=== PATIENT | female | born 1965 | race Caucasian/White ===

== ENCOUNTER 2022-03-12 02:51 | Emergency (ER) | payer OTHER, SELFPAY ==
[2022-03-12] VITALS (42 sets, daily range): BP systolic 121–154; BP diastolic 64–95; PULSE 78–97; RESP 16; TEMP 36.6; O2SAT 91–98; BMI 30.7
[2022-03-12] MEDS: GI COCKTAIL (VISC LIDO/ANTACID) 30 ML PO (03:15)
--- NOTE | 2022-03-12 03:16 | ED.GENADULT ---
HPI - General Adult General Date Seen: 03/12/22 Chief complaint: Abdominal Pain Stated complaint: Abdominal Pain Time Seen by Provider: 03/12/22 03:03 Source: patient and family Mode of arrival: ambulatory Limitations: no limitations History of Present Illness HPI narrative: 56-year-old female brought in by her at 3:00 a.m. with epigastric pain that began around 10:00 p.m.. Some nausea but no vomiting. She has had a normal bowel movement. Nothing black or bloody. She took some Rolaids without much relief. She has a history of pancreatitis, likely related to gallstones. She is not a drinker. Her gallbladder has been removed. She ate cabbage and a sandwich for supper. No fevers or chills. Related Data Home Medications Medication Instructions Recorded Confirmed levothyroxine 112 mcg tablet mcg 03/12/22 Allergies Allergy/AdvReac Type Severity Reaction Status Date / Time levofloxacin [From Levaquin] AdvReac Verified 03/12/22 03:01 Review of Systems Narrative: Review of systems is as outlined above otherwise noted to be negative. [facility] Medical History (Updated 03/12/22 @ 03:19 by Boy Castillo MD) History of pancreatitis Hypothyroid Lymphoma Surgical History (Updated 03/12/22 @ 03:02 by Rand Saavedra RN) History of cholecystectomy Social History Smoking Status: Never smoker Do you use any of these nicotine containing products: None How often do you have a drink containing alcohol: never AUDIT-C Alcohol total score: 0 Non-prescribed substance use: denies use Exam Narrative: Exam Narrative: Vitals noted. HEENT: Conjunctiva clear. Neck is supple without adenopathy, thyromegaly, carotid bruit. Lungs: Clear to auscultation in all muir. No wheezes, rales, rhonchi. Heart: Regular rate and rhythm without murmur. Abdomen: Soft with mild epigastric pain. No guarding, rigidity, rebound. Bowel sounds are normal. No palpable masses. Extremities: No cyanosis or edema. Good distal pulses. Skin: No abnormalities noted of the exposed skin. Neurologic: Awake, alert, fully oriented. Neurologic exam is nonfocal. Const: Vital Signs, click to edit/add: Vital Signs - 24 hr 03/12/22 02:58 03/12/22 03:07 03/12/22 03:30 Temperature 97.8 F Pulse Rate 96 86 Pulse Rate [Left P ulse Oximeter] 91 Respiratory Rate 16 Blood Pressure Blood Pressure [Ri ght Upper Arm] 136/95 H Pulse Oximetry 98 98 96 Oxygen Delivery Me thod Room Air 03/12/22 03:32 03/12/22 04:00 03/12/22 04:02 Temperature Pulse Rate 86 88 86 Pulse Rate [Left P ulse Oximeter] Respiratory Rate Blood Pressure 145/82 H 154/87 H Blood Pressure [Ri ght Upper Arm] Pulse Oximetry 96 96 95 Oxygen Delivery Me thod 03/12/22 04:03 03/12/22 04:22 03/12/22 04:30 Temperature Pulse Rate 90 89 84 Pulse Rate [Left P ulse Oximeter] Respiratory Rate Blood Pressure Blood Pressure [Ri ght Upper Arm] Pulse Oximetry 96 92 94 Oxygen Delivery Me thod 03/12/22 04:32 03/12/22 04:45 03/12/22 05:00 Temperature Pulse Rate 84 89 90 Pulse Rate [Left P ulse Oximeter] Respiratory Rate Blood Pressure 148/79 H Blood Pressure [Ri ght Upper Arm] Pulse Oximetry 94 94 94 Oxygen Delivery Me thod 03/12/22 05:02 03/12/22 05:15 03/12/22 05:30 Temperature Pulse Rate 86 88 88 Pulse Rate [Left P ulse Oximeter] Respiratory Rate Blood Pressure 150/75 H Blood Pressure [Ri ght Upper Arm] Pulse Oximetry 94 94 94 Oxygen Delivery Me thod 03/12/22 05:32 03/12/22 05:45 03/12/22 06:00 Temperature Pulse Rate 90 89 86 Pulse Rate [Left P ulse Oximeter] Respiratory Rate Blood Pressure 126/64 Blood Pressure [Ri ght Upper Arm] Pulse Oximetry 96 94 97 Oxygen Delivery Me thod 03/12/22 06:02 03/12/22 06:15 03/12/22 06:30 Temperature Pulse Rate 85 85 87 Pulse Rate [Left P ulse Oximeter] Respiratory Rate Blood Pressure 133/82 Blood Pressure [Ri ght Upper Arm] Pulse Oximetry 95 96 95 Oxygen Delivery Me thod 03/12/22 06:32 03/12/22 06:37 03/12/22 06:45 Temperature Pulse Rate 88 97 84 Pulse Rate [Left P ulse Oximeter] Respiratory Rate Blood Pressure 132/71 Blood Pressure [Ri ght Upper Arm] Pulse Oximetry 96 95 97 Oxygen Delivery Me thod 03/12/22 07:00 03/12/22 07:15 Temperature Pulse Rate 84 84 Pulse Rate [Left P ulse Oximeter] Respiratory Rate Blood Pressure Blood Pressure [Ri ght Upper Arm] Pulse Oximetry 96 96 Oxygen Delivery Me thod Course Course Hospital Course: Patient was seen and examined. Labs are ordered. GI cocktail is also ordered. Reevaluation(s) Reevaluation #1: The GI cocktail was ineffective. The patient's labs are all normal other than a lipase of 5249. She confirms that she does not drink alcohol, has never had an elevated triglyceride count, and takes no medications other than Synthroid. CT of the abdomen and pelvis with IV contrast is ordered. Patient is given fentanyl 50 mcg and Zofran 4 mg IV. Reevaluation #2: Patient feels considerably better after the fentanyl. I explained her CT results. It showed pancreatitis of the 2nd and 3rd portion of the pancreas possibly related to duodenal inflammation. She denies history of significant acid reflux or history of peptic ulcer disease. I discussed that we should plan to keep her in the hospital on IV fluids and pain meds and keep her NPO and observe. She is willing. They are currently no beds available at this facility or any other facility in the [facility]. The patient should probably have an EGD done either during this admission or as an outpatient to make sure there is no evidence of peptic ulcer disease that is triggering the pancreatitis. I will start her on a PPI today. Vital Signs Vital signs: Initial Vital Signs Temperature 97.8 F 03/12/22 02:58 Temperature Source Temporal Artery Scan 03/12/22 02:58 Pulse Rate 91 03/12/22 02:58 Respiratory Rate 16 03/12/22 02:58 Blood Pressure 136/95 H 03/12/22 02:58 Blood Pressure Mean 108 03/12/22 02:58 Blood Pressure Position Sitting 03/12/22 02:58 Pulse Oximetry 98 03/12/22 02:58 Oxygen Delivery Method 03/12/22 02:58 Vital Signs Temperature 97.8 F 03/12/22 02:58 Pulse Rate 91 03/12/22 02:58 Respiratory Rate 16 03/12/22 02:58 Blood Pressure 136/95 H 03/12/22 02:58 Pulse Oximetry 98 03/12/22 02:58 Oxygen Delivery Method 03/12/22 02:58 Temperature 97.8 F 03/12/22 02:58 Pulse Rate 84 03/12/22 07:15 Respiratory Rate 16 03/12/22 02:58 Blood Pressure 132/71 03/12/22 06:32 Pulse Oximetry 96 03/12/22 07:15 Oxygen Delivery Method 03/12/22 02:58 Medical Decision Making Lab Data Labs: Lab Results 03/12/22 03/12/22 Range/Units 03:05 03:05 WBC 7.59 (4.50-11.00) K/uL RBC 4.72 (4.00-5.20) m/uL Hgb 14.3 (12.0-16.0) gm/dL Hct 41.8 (33.0-51.0) % MCV 89 (80-100) fL MCH 30 (26-34) pg MCHC 34 (32-36) gm/dL RDW Coeff of Charla 12.2 (11.5-15.5) % Plt Count 229 (140-440) K/uL Neut % (Auto) 76.2 H (42.0-72.0) % Lymph % (Auto) 16.1 L (20-44) % [place] % (Auto) 5.4 (0.0-11.0) % Eos % (Auto) 1.1 (0.0-7.0) % Baso % (Auto) 0.3 (0.0-3.0) % Neut # (Auto) 5.80 (1.7-7.0) K/uL Lymph # (Auto) 1.20 (0.90-2.90) K/uL [place] # (Auto) 0.40 (0.00-0.90) K/UL Eos # (Auto) 0.08 (0.00-0.50) K/uL Baso # (Auto) 0.02 (0.00-0.30) K/uL Abs Immat Gran (auto) 0.07 (0.00-0.30) K/uL Imm/Tot Granulo (auto) 0.9 % Sodium 140 (135-149) mmol/L Potassium 3.9 (3.6-5.1) mmol/L Chloride 105 (96-114) mmol/L Carbon Dioxide 26 (20-32) mmol/L BUN 15 (7-30) mg/dL Creatinine 0.7 (0.5-1.5) mg/dL Estimated Creat Clear 99.11 Estimated GFR 101 ml/min Glucose 142 H (60-115) mg/dL Calcium 9.7 (8.4-10.6) mg/dL Total Bilirubin 0.4 (0.1-1.5) mg/dL Direct Bilirubin 0.1 (0.0-0.5) mg/dL AST 28 (12-35) U/L ALT 26 (4-35) U/L Alkaline Phosphatase 146 (40-150) U/L Total Protein 7.4 (6.0-8.3) g/dL Albumin 4.7 (3.3-5.0) g/dL Lipase 5249 H (23-300) U/L Discharge Plan Discharge Prescriptions: No Action levothyroxine 112 mcg tablet Label Comments: TAKE ONE TABLET BY MOUTH ONE TIME DAILY BEFORE BREAKFAST Follow Up/Referrals: Lefty Gomez MD [Primary Care Provider] -
[2022-03-12 03:18] LABS: Basophils Absolute Auto 0.02 K/uL (0.00-0.30); Basophils Percent Auto 0.3 % (0.0-3.0); Eosinophils Absolute Auto 0.08 K/uL (0.00-0.50); Eosinophils Percent Auto 1.1 % (0.0-7.0); Hematocrit 41.8 % (33.0-51.0); Hemoglobin* 14.3 gm/dL (12.0-16.0); Immature Granulocytes Abs Auto 0.07 K/uL (0.00-0.30); Immature Granulocytes Pct Auto 0.9 %; Lymphocytes Percent Auto 16.1 % (20-44); Mean Corpuscular HGB Conc 34 gm/dL (32-36); Mean Corpuscular Hemoglobin 30 pg (26-34); Mean Corpuscular Volume 89 fL (80-100); Monocytes Percent Auto 5.4 % (0.0-11.0); Neutrophils Percent Auto 76.2 % (42.0-72.0); Platelet Count* 229 K/uL (140-440); RDW Coefficient of Variation % 12.2 % (11.5-15.5); Red Blood Count 4.72 m/uL (4.00-5.20); White Blood Count* 7.59 K/uL (4.50-11.00)
[2022-03-12 03:20] LABS: Slide Review Reflex No
--- OUTSIDE RECORDS SUMMARY | 2022-03-12 03:26 | XMS_ITS | Clinical Summary ---
:1965 Author Organization [employer] [facility] [employer] [facility] [place] [address] Care Team Providers Name Role Phone Lefty Gomez MD Primary Care Provider [phone] Allergies Active Allergy Reactions Severity Noted Date Comments Levofloxacin Rash 12/20/2007 Medications Medication Sig Dispensed Refills Start Date End Date Status Sfljw-8-ZEA-EPA-Fish Take 1 Tab by 0 05/21/2009 Active Oil (EPA-DHA 720) mouth once daily. 290-430-1.4 mg-mg-gram Cap cholecalciferol Take 1 capsule by 0 07/13/2011 Active (VITAMIN D-3) 2,000 mouth 2 times unit capsule daily. multivitamin (MVI) Take 1 tablet by 0 02/07/2020 Active tablet mouth once daily. levalbuterol (XOPENEX Inhale 1-2 Puffs 15 g 1 01/16/2021 Active HFA) 45 mcg/actuation by mouth every 4 inhalerIndications: hours if needed. Wheeze alendronate (Fosamax) Take 1 Tablet (70 12 Tablet 3 01/27/2022 Active 70 mg mg) by mouth once tabletIndications: a week in the Osteoporosis with morning. Take on current pathological empty stomach fracture, unspecified with full glass osteoporosis type, of water. Do not initial encounter lie down for 1 hr. levothyroxine Take 1 Tablet 90 Tablet 3 01/27/2022 A ctive (SYNTHROID) 112 mcg (112 mcg) by tabletIndications: mouth before Acquired hypothyroidism breakfast. tacrolimus 0.03% Apply topically 30 g 1 01/27/2022 Active (PROTOPIC) 0.03 % to affected ointmentIndications: area(s) two times Chronic eczema daily. Active Problems Problem Noted Date Osteoporosis 01/10/2020 Overview: Endo consult 01/2020-> Tymlos x 2 yrs, t hen Bisphos. Acquired hypothyroidism 09/30/2015 Adenomatous colon polyp 11/13/2014 Overview: Colonoscopy 11/2014 multiple polyps repea t in 2 months at the hospital Colonoscopy 11/2014 no recurrent polyps r epeat in 3 years Colonoscopy 02/2018 2 polyps, repeat in 5 years Migraine, unspecified, without mention o f intractable migraine without mention of status migrainosus Impaired fasting glucose Resolved Problems Problem Noted Date Resolved Date Unspecified hypothyroidism 09/30/2015 Other malignant lymphomas, unspecified site, extranodal and 01/09/2021 solid organ sites Overview: treated with radiation and chemo at age 26 Encounters Date Type Specialty Care Team Description 01/28/2022 Orders Only Lefty Gomez <No scans a ttached> MD [facility] 01/27/2022 Office Visit Lefty Gomez Medication Management; MD [facility] Derm Problem (R edness around eyes and mouth, started a coupl e months); Immunization/In jection 01/27/2022 Phone Office Visit Cruz Hamilton MD 01/27/2022 Travel 01/24/2022 Travel 01/20/2022 Ancillary Procedure 01/20/2022 Orders Only Lab, [facility] 01/20/2022 Travel 01/15/2022 Ancillary Procedure 01/15/2022 Travel 01/06/2022 Telephone Cruz Hamilton, Lab (Ok to perform labs MD due 02/02 early on 01/20/2022?) 12/30/2021 Telephone Lefty Gomez Lab (needs lab orders MD Marleni in) 12/18/2021 Refill Cruz Hamilton, Refill Request (Joana NEGRETE from Last 3 Months Immunizations Name Administration Dates Next Due AMB Influenza, IIV4 PF (=>6 mos 01/25/2018, 02/01/2017, 02/09 Flulaval,Fluzone Fluarix)(Flu Clinic Only) COVID-19 vaccine (Sc[employer]crow [employer] 08/20/2020, 07/30/2020 30mcg/0.3mL) PF, MDV Hepatitis B (Adult) 11/24/2004, 07/02/2004, 05/20/2004 Influenza, IIV3 (Age >=3 years) 02/23/2008, 03/12/2003 Influenza, IIV4 01/27/2022, 01/09/2021, 01/04/2020 Influenza, IIV4 (=>6mos) MDV 01/18/2019 Td (Age >=7 Years) 03/12/2003 Tdap 01/09/2021, 07/13/2011 Zoster (Shingrix-RZV, recombinant) 06/05/2018, 02/16/2018 Family History Medical History Relation Name Comments Asthma Brother 1 Luis Armando Buysman Diabetes Brother 1 Luis Armando Buysman Diabetes Brother 2 Spanaway Buysman Obesity Brother 2 Spanaway Buysman Cancer-prostate Father Isaías Rocha Diabetes Father Isaías Rocha Stroke Father Isaías Rocha Good Health Mother Jasmin Rocha Diabetes Paternal Grandmother Gisselle Rocha Cancer-breast No Family History Cancer-colon No Family History Cancer-ovarian No Family History Heart attack No Family History Relation Name Status Comments Brother 1 Luis Armando Buysman Brother 2 Mitchell Buysman Father Isaías Rocha Alive Mother Jasmin Rocha Alive Paternal Grandmother Gisselle Rocha Social History Tobacco Use Types Packs/Day Years Used Date Never Smoker 0 0 Smokeless Tobacco: Never Used Tobacco Cessation: Counseling Given: Yes Alcohol Use Standard Drinks/Week Comments Not Currently 0 (1 standard drink = 0.6 oz pure alcoho l) Alcohol Habits Answer Date Recorded How often do you have a drink containing alcohol? Monthly or less 11/10/2018 How many drinks containing alcohol do you have on a 1 or 2 11/10/2018 typical day when you are drinking? How often do you have six or more drinks on one Never 11/10/2018 occasion? Comment: Not asked Sex Assigned at Date Recorded Female 05/04/2021 8:26 PM [employer] Obstetrics History Last Filed Vital Signs Vital Sign Reading Time Taken Comments Blood Pressure 118/80 01/27/2022 10:01 AM CDT Pulse 105 01/27/2022 9:41 AM CDT Temperature 36.6 ??C (97.9 ??F) 07/14/2020 2:48 PM CDT Respiratory Rate 16 02/07/2020 1:07 PM CDT Oxygen Saturation 95% 01/27/2022 9:41 AM CDT Inhaled Oxygen Concentration - - Weight 99.6 kg (219 lb 9.6 oz) 01/27/2022 9:41 AM CDT Height 179.8 cm (5' 10.79) 01/27/2022 9:41 AM CDT Body Mass Index 30.81 01/27/2022 9:41 AM CDT Plan of Treatment Health Maintenance Due Date Last Done Comments HIV for age 15-65 06/21/1979 COVID-19 vaccine series (4 - 07/31/2021 06/05/2021, 021, Booster for Pfizer series) 07/30/2020 Mammogram for age 45-75 01/15/2023 01/15/2022, 11/14/2020, 11/09/2019, Additional history exists BMI (ht and wt on same day) for 01/27/2023 01/27/2022, 100 04/2020, age 18+ 01/04/2020, Additional history exists Depression screening for age 12+ 01/28/2023 01/28/2022, , 01/05/2020, Additional history exists Colonoscopy through age 75 02/13/2023 02/13/2018, 8, 02/13/2018, Additional history exists Lipids for age 45-75 12/27/2024 12/28/2019, 11/07/2018, 11/03/2017, Additional history exists Pap test for age 21-65 01/03/2025 01/04/2020, 01/04/2020, 11/05/2016, Additional history exists Tetanus booster 01/09/2031 01/09/2021, 07/13/2011, 03/12/2003 Hepatitis C screening for age Completed 11/05/2016 18-79 Zoster (shingles) series for age Completed 06/05/2018, 11/2017 50+ Tdap Completed 01/09/2021, 07/13/2011 Influenza for age 50-64 Completed 01/27/2022, 01/09/2021, 01/04/2020, Additional history exists Procedures Procedure Name Priority Date/Time Associated Diagnosis Comme nts T4,FREE Routine 01/27/2022 10:43 Acquired Results for this AM CDT hypothyroidism procedure are in the results section. TSH WITH REFLEX Routine 01/27/2022 10:43 Acquired Results for this AM CDT hypothyroidism procedure are in the results section. XR DXA BONE DENSITY Routine 01/20/2022 8:44 AM Osteoporosis wi th Results for this 2 SITES AXIAL CDT current pathological proced ure are in fracture with routine the re sults healing, unspecified section . osteoporosis type, subsequent encounter HEMOGLOBIN A1C Routine 01/20/2022 8:20 AM Impaired fasting Res ults for this SCREENING CDT glucose procedure are i n the results section. VITAMIN D 25 Routine 01/20/2022 8:20 AM Osteoporosis with Resu lts for this (DEFICIENCY) CDT current pathological procedu re are in fracture with routine the re sults healing, unspecified section . osteoporosis type, subsequent encounter PTH,INTACT Routine 01/20/2022 8:20 AM Osteoporosis with Resu lts for this CDT current pathological procedu re are in fracture with routine the re sults healing, unspecified section . osteoporosis type, subsequent encounter BASIC METABOLIC Routine 01/20/2022 8:20 AM Osteoporosis with R esults for this PANEL CDT current pathological procedu re are in fracture with routine the re sults healing, unspecified section . osteoporosis type, subsequent encounter XR MAMMO HERBERTH BILAT Routine 01/15/2022 9:49 AM Visit for gissell workman Results for this SCREEN CDT mammogram procedure are i n the results section. from Last 3 Months Results (ABNORMAL) TSH WITH REFLEX (01/27/2022 10:43 AM CDT) P athologist Signature TSH 6.92 (H) 0.35 - 4.94 01/27/2022 [facility] uIU/mL 10:31 PM CDT LABORATORY-[facility] LAB[facility] Specimen Anatomical Collection Method / Collection Time Recei milagros Time (Source) Location / Volume Laterality Blood BLOOD SPECIMEN / Venipuncture / 01/27/2022 10:43 01/27 Unknown Unknown AM CDT 10:43 AM CDT Narrative [facility] LABORATORY-[facility] - 01/27/2022 10:31 PM CDT In Adults, TSH values between 5.00 and 10.00 uIU/ml do not necessarily indicate the presence of Hyp othyroidism. Correlation with clinical findings such as presence of goiter and/or Thyroperoxidase (TPO) Antibody ma y be helpful. For more information please refer to NOR[facility]ERT 20 ; 291: [phone]. Lefty Gomez MD CHEMISTRY Performing Organization Address City/State/ZIP Code Phon e Number [employer] [address] [place] [address] LABORATORY-[facility] LABORATORY T4,FREE (01/27/2022 10:43 AM CDT) athologist Signature T4,FREE 0.91 0.70 - 1.80 01/27/2022 [facility] ng/dL 11:19 PM CDT LABORATORY[facility] LABORATORY Specimen Anatomical Collection Method / Collection Time Recei milagros Time (Source) Location / Volume Laterality Blood BLOOD SPECIMEN / Venipuncture / 01/27/2022 10:43 01/27 Unknown Unknown AM CDT 10:43 AM CDT Lefty Gomez MD CHEMISTRY Performing Organization Address City/State/ZIP Code Phon e Number [employer] [address] [place] [address] LABORATORY-[facility] LABORATORY (ABNORMAL) XR DXA BONE DENSITY 2 SITES AXIAL (01/20/2022 8:44 AM CDT) Anatomical Region Laterality Modality Spine, HIPS, HIPL, HIPR Other Specimen (Source) Anatomical Location Collection Method / Collectio n Time Received Time / Laterality Volume Impressions 01/26/2022 8:38 AM CDT Osteopenia. RECOMMENDATIONS: The National Osteoporosis Foundation rec ommends pharmacologic treatment for patients with T-scores of -2.5 or le ss, patients with prior history of fragility fractures, or patients with 10 -year probability of greater than 3% at hips or greater than 20% of suffer ing major osteoporotic fractures. Recommend continued optimization of calc ium and vitamin D intake through dietary means and/or supplementation and regular exercise. Continue current Tymlos medication treat ment. Eliane Kaiser PA-C [facility] 01/26/2022 Narrative 01/26/2022 8:38 AM CDT For Patients: Results are automatically released to your [employer]) account once available, in com pliance with federal regulations. This means that you may see your results before your provider has had a chance to review them. Please allow 2-3 business days for your provider to comment on the results. XR DXA Bone Mineral Density (BMD) EXAM LOCATION: [facility] [address] [facility] [address] PATIENT NAME: Aliyah Mcallister DATE OF : 1965 EXAM DATE: 01/20/2022 REQUESTING PROVIDER: Cruz Hamilton MD GENDER AT : female HEIGHT: 5' 11.18 (01/09/2021) WEIGHT: ??219 lb 12.8 oz (01/09/2021) MENOPAUSAL STATUS: Postmenopausal RACE/ETHNICITY: White RISK FACTORS: Family History of Osteopor osis, Family History of Hip Fracture (parental), History of Fragilit y Fracture (at a major site) and White Race CURRENT MEDICATION FOR BONE LOSS: TYMLOS 80 MCG INJECTIONS INDICATION: Screening for osteoporosis COMPARISON DATE(S): 2019 DXA scans are compared to prior studies for a patient only when the two (or more) studies were performed on the same scanner. It is not possible to compare data generated on one scanner to data from another because there are not standards in DXA equipment . This applies even if the two scanners are made by the same manufactur er. PROCEDURE: Dual-energy x-ray absorptiome try performed with routine technique. Reporting is completed in the form of a T-score. The T-score represents the standard deviation from p eak bone mass based on young healthy adult. A Z-score is used for maryann gnosis in premenopausal women, and for men under the age of 50. FINDINGS: RESULT LUMBAR SPINE L1 - L4 BMD: 0.905 g/cm2 T-Score: - 2.3 Z-Score: - 2.5 Change from prior in 2020: ??Increase 10 .2%. RESULTS FEMUR Left femoral neck BMD: 0.804 g/cm2 T-Score: - 1.7 Z-Score: - 1.3 Change from prior in 2020: ??Decrease 0. 2%. Right femoral neck BMD: 0.759 g/cm2 T-Score: - 2.0 Z-Score: - 1.6 Change from prior in 2019: ??Decrease 1. 8%. Left hip BMD: 0.808 g/cm2 T-Score: - 1.6 Z-Score: - 1.6 Change from prior in 2020: ??Increase 0. 6%. Right hip BMD: 0.787 g/cm2 T-Score: - 1.8 Z-Score: - 1.8 Change from prior in 2020: ??Increase 1. 7%. WHO criteria: Normal: T-score at or above -1 SD Osteopenia: T-score between -1.1 and -2. 4 SD Osteoporosis: T-score at or below -2.5 S D Cruz Hamilton MD DEXA HEMOGLOBIN A1C SCREENING (01/20/2022 8:20 AM CDT) athologist Signature HEMOGLOBIN A1C 6.1 <=6.4 % 01/20/2022 [employer] [facility] SCREENING 4:40 PM CDT LABORATORY-[facility] Specimen Anatomical Collection Method / Collection Time Recei milagros Time (Source) Location / Volume Laterality Blood BLOOD SPECIMEN / Venipuncture / 01/20/2022 8:20 2021 8:21 Unknown Unknown AM CDT AM CDT Narrative [facility] LABORATORY-CENTRAL LABORAT ORY - 01/20/2022 4:40 PM CDT ? (<5.7%) ?Normal ? (5.7% to 6.4%) ? Indicates pr ediabetes ? (>=6.5%) ? Confirms diabetes Falsely low levels may be seen with: Recent Transfusion, Recent Significant B lood Loss, Hemolytic Diseases, or Falsely elevated levels may be seen with : Untreated Anemias, Splenectomy Lefty Gomez MD CHEMISTRY Performing Organization Address City/State/ZIP Code Phon e Number [facility] [facility] [address] [place] [address] LABORATORY-[facility] LABORATORY VITAMIN D 25 (DEFICIENCY) (01/20/2022 8:20 AM CDT) athologist Signature VITAMIN D 44.8 30.0 - 01/20/2022 [facility] [facility] TOTAL 80.0 ng/mL 10:01 PM CDT LABORATORY-[facility] LAB[facility]ATORY Specimen Anatomical Collection Method / Collection Time Recei milagros Time (Source) Location / Volume Laterality Blood BLOOD SPECIMEN / Venipuncture / 01/20/2022 8:20 2021 8:21 Unknown Unknown AM CDT AM CDT [facility] - 01/20/2022 10:01 PM CDT Deficiency: ? <20 ng/mL Insufficiency: ?20-29 ng/mL Sufficiency: ?30-80 ng/mL Possible Toxicity: ??>80 ng/mL Based on [facility] [employer] [facility] recommend ations Cruz Hamilton MD SEND OUTS Performing Organization Address [facility]/ZIP Code Phon e Number [employer] [address] [place] [id number] LABORATORY-CENTRAL 2000 LABORATORY PTH,INTACT (01/20/2022 8:20 AM CDT) P athologist Signature PTH,INTACT 32.4 14.5 - 87.1 01/21/2022 [facility] pg/mL 1:29 PM CDT LABORATORY-[facility] LAB[facility] CALCIUM 9.5 8.5 - 10.5 01/21/2022 [facility] mg/dL 1:29 PM CDT LABORATORY-[facility] LAB[facility] Specimen Anatomical Collection Method / Collection Time Recei milagros Time (Source) Location / Volume Laterality Blood BLOOD SPECIMEN / Venipuncture / 01/20/2022 8:20 2021 8:21 Unknown Unknown AM CDT AM CDT Cruz Hamilton MD SEND OUTS Performing Organization Address City/State/ZIP Code Phon e Number [facility] [address] [place], [place] [address] [place] [address] LABORATORY-CENTR[facility] 2000 LABORATORY (ABNORMAL) BASIC METABOLIC PANEL (01/20/2022 8:20 AM CDT) Analysis Performed At Patho logist Time Signature SODIUM 139 135 - 145 01/20/2022 [facility] mmol/L 9:37 PM CDT LABORATORY-[facility] POTASSIUM 4.0 3.5 - 5.0 01/20/2022 [facility] mmol/L 9:37 PM CDT LABORATORY-[facility] CHLORIDE 104 98 - 110 01/20/2022 [facility] mmol/L 9:37 PM CDT LABORATORY-[facility] CO2,TOTAL 23 21 - 31 01/20/2022 [facility] mmol/L 9:37 PM CDT LABORATORY-[facility] ANION GAP 12 5 - 18 01/20/2022 [facility] 9:37 PM CDT LABORATORY-[facility] GLUCOSE 131 (H) 65 - 100 01/20/2022 [facility] mg/dL 9:37 PM CDT LABORATORY-[facility]ORY CALCIUM 9.1 8.5 - 10.5 01/20/2022 [facility] mg/dL 9:37 PM CDT LABORATORY-[facility] BUN 14 8 - 25 01/20/2022 [facility] mg/dL 9:37 PM CDT LABORATORY-[facility] CREATININE 0.81 0.57 - 01/20/2022 [facility] 1.11 mg/dL 9:37 PM CDT LABORATORY-[facility] BUN/CREAT RATIO 17 10 - 20 01/20/2022 [facility] 9:37 PM CDT LABORATORY-[facility] eGFR 85 (L) >90 01/20/2022 [facility] mL/min/1.7 9:37 PM CDT LABORATORY-EL[facility] 3m2 TRAL LABORATORY Comment: As of 2021, eGFR is calcu lated by the CKD-EPI creatinine equation without race adjustment. eGFR can be inf luenced by muscle mass, exercise, and diet. The reported eGFR is an estimation only and is only applicable if the renal function is stable. Specimen Anatomical Collection Method / Collection Time Recei milagros Time (Source) Location / Volume Laterality Blood BLOOD SPECIMEN / Venipuncture / 01/20/2022 8:20 2021 8:21 Unknown Unknown AM CDT AM CDT Cruz Hamilton MD CHEMISTRY Performing Organization Address City/State/ZIP Code Phon e Number [facility] [facility] [facility] [address] [place] [address] LABORATORY-CENTRAL 2000 LABORATORY XR MAMMO HERBERTH BILAT SCREEN (01/15/2022 9:49 AM CDT) Anatomical Region Laterality Modality BREASTS, Breast Left, Breast Right Bilateral Mammo graphy Specimen (Source) Anatomical Location Collection Method / Collectio n Time Received Time / Laterality Volume Impressions 01/15/2022 1:44 PM CDT ??There is no radiographic evidence for malignancy. ??Recommend annual mammograms. MAMMOGRAM ASSESSMENT: ??ACR 1 Negative PATIENTS: You will also receive a letter with your examination results in an easy to read format. ??If you have qu estions about your results, please contact your referring provider. Narrative 01/15/2022 1:44 PM CDT For Patients: As a result of the Cures Act, medical imaging exams and procedure reports are released immediately into your electronic medical record. You may view this report before your referring provider. If you have questions, please contact [facility] care provider. XR MAMMO HERBERTH BILAT SCREEN [[id number]] CLINICAL HISTORY: ??This is an asymptoma tic 56 y.o. patient. INDICATION FOR EXAM: Mammogram Screening . TECHNIQUE: CC & MLO views were obtained. ??This study was evaluated with the assistance of Computer-Aided Detecti on. Breast Tomosynthesis was used in interpretation. COMPARISON FILM: Yes 11/14/20 [facility] 11/09/19 [employer] [employer] FINDINGS: ??The breasts have scattered a reas of fibroglandular density. There are no dominant masses, suspicious micro calcifications or areas of architectural distortion. Lefty Gomez MD MAMMO from Last 3 Months Insurance Payer Benefit Plan / Subscriber ID Effective Dates Phone Addre ss Type [facility] [employer] [id number] 2012-Present [address] [place] [address] Care Teams Galvanizer Relationship Specialty Start Date End Date Lefty Gomez MD PCP - General 08/18/05 [address] [place] [address]
[2022-03-12 03:31] LABS: Albumin* 4.7 g/dL (3.3-5.0); Chloride* 105 mmol/L (96-114); Sodium* 140 mmol/L (135-149)
[2022-03-12 03:32] LABS: Potassium* 3.9 mmol/L (3.6-5.1)
[2022-03-12 03:33] LABS: Creatinine* 0.7 mg/dL (0.5-1.5); Est. Creatinine Clearance* 99.11; Estimated Glomerular Filt Rate 101 ml/min
[2022-03-12 03:34] LABS: Alkaline Phosphatase* 146 U/L (40-150); Aspartate Amino Transferase* 28 U/L (12-35); Bilirubin Direct* 0.1 mg/dL (0.0-0.5); Bilirubin Total* 0.4 mg/dL (0.1-1.5); Blood Urea Nitrogen* 15 mg/dL (7-30); Carbon Dioxide* 26 mmol/L (20-32); Glucose* 142 mg/dL (60-115); Total Protein* 7.4 g/dL (6.0-8.3)
[2022-03-12 03:35] LABS: Alanine Aminotransferase* 26 U/L (4-35); Calcium* 9.7 mg/dL (8.4-10.6)
[2022-03-12 03:50] LABS: Lipase* 5249 U/L (23-300)
--- NOTE | 2022-03-12 03:53 | CRLHL7_ITS ---
For Patients: As a result of the Century Cures Act, medical imaging exams and procedure reports are released immediately into your electronic medical record. You may view this report before your referring provider. If you have questions, please contact your health care provider. INDICATION: Pancreatitis. COMPARISON: June 21, 2019 TECHNIQUE: CT examination of the abdomen and pelvis was performed following the uneventful intravenous administration of 100 cc of Isovue 370. Thin section axial images were obtained from the lung bases through the pubic symphysis. Oral contrast was not administered. Please note that all CT scans at this facility use dose modulation, iterative reconstruction, and/or weight-based dosing when appropriate to reduce radiation dose to as low as reasonably achievable. FINDINGS: LUNG BASES: Minimal basilar atelectasis.The heart size is normal at the lung bases. LIVER/BILIARY SYSTEM:The liver is normal in size and configuration. There is no focal mass and there is no intra- or extra hepatic biliary ductal dilatation.Hepatic steatosis. Gallbladder surgically absent ADRENALS: Normal KIDNEYS, URETERS and BLADDER:The kidneys appear normal. No visible mass, calculus or hydronephrosis. The ureters and bladder as visualized appear normal. SPLEEN:Normal appearance. PANCREAS: Moderate inflammatory changes at the pancreaticoduodenal groove extending inferiorly to the 2nd and 3rd portion of the duodenum, the retroperitoneum and the root the mesentery. 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 Occasionally, this appearance is due to duodenal inflammatory disease with secondary involvement of the pancreas. No collection. No phlegmon. No evidence of necrosis. The patient had a similar finding in 2019 RETROPERITONEUM and MESENTERY: There is no mass, adenopathy or aortic aneurysm. GASTROINTESTINAL SYSTEM: There is no evidence of diverticulitis, colitis, mechanical obstruction, or appendicitis. The small bowel as visualized appears normal. PELVIS: No mass, adenopathy or free fluid. OSSEOUS STRUCTURES and ABDOMINAL WALL: There is an age-appropriate appearance of the osseous structures.No significant abdominal wall defect. OTHER: No free fluid or free air. IMPRESSION: Moderate inflammatory changes at the pancreaticoduodenal groove as described. Please note that all CT scans at this facility use dose modulation, iterative reconstruction, and/or weight-based dosing when appropriate to reduce radiation dose to as low as reasonably achievable. Dictated by Milind Valiente MD @ 03/12/2022 4:35:15 AM (Electronically Signed)
[2022-03-12] MEDS: 0.9 % SODIUM CHLORIDE 500 ML 500 ML IV (04:00)
[2022-03-12] MEDS: fentaNYL 100 MCG/2 ML inj 50 MCG IVP (04:09)
[2022-03-12] MEDS: ONDANSETRON 2 MG/ML inj 4 MG IVP (04:10)
[2022-03-12] MEDS: 0.9 % SODIUM CHLORIDE 1000 ml 1,000 ML 250 ML IV ×2 (05:06→09:03)
[2022-03-12] MEDS: PANTOPRAZOLE SODIUM 40 MG INJ IVP (07:53)
[2022-03-12] MEDS: HYDROmorphone 0.5 mg/0.5 ml inj IVP (08:20)
[2022-03-12 08:52] LABS: SARS PCR* Negative SARS-CoV-2 (Negative)
--- NOTE | 2022-03-12 10:34 | PC.NURSE ---
Patient ambulatory to restroom independently. PO challenge per Dr. Yeager. toast, applesauce and crackers provided to patient. May discharge to home if able to tolerate.
--- NOTE | 2022-03-12 11:10 | PC.NURSE ---
Patient tolerating food and liquids. Lab called for redraw.
--- NOTE | 2022-03-12 11:35 | PC.NURSE ---
Patient tolerated food and fluids orally. States abdomen increased to 2/10 from 04/20. Blood redrawn and sent to lab. Dr. Yeager updated.
[2022-03-12 11:58] LABS: Lipase* 1680 U/L (23-300)
== END 2022-03-12 13:15 | disposition home or self-care (01) ==
PROVIDERS: Emergency Medicine Emergency Medical Services; Emergency Provider Family Medicine; PCP Family Medicine
DX: K85.90 Acute pancreatitis without necrosis or infection, unspecified (principal)
CPT/HCPCS: 36415; 74177; 80048; 80076; 83690; 85025; 87635; 96374; 96375; 99283; 99284; A9270; C9113; J1170; J2405; J3010; J7030; J7120; Q9967

== ENCOUNTER 2022-05-02 15:11 | Inpatient (IN) | payer OTHER, SELFPAY ==
[2022-05-02] VITALS (17 sets, daily range): BP systolic 132–144; BP diastolic 75–93; PULSE 83–97; RESP 16–18; TEMP 36.1–36.4; O2SAT 93–99; BMI 29.3; BMI 29.8
--- NOTE | 2022-05-02 15:58 | ED_ITS ---
HPI - Abdominal Pain General Chief Complaint: Abdominal Pain Stated Complaint: Pancreatitis Time Seen by Provider: 05/02/22 15:45 History of Present Illness HPI narrative: This 56-year-old female comes in with upper epigastric abdominal pain that she suspects may be due to her recurrent pancreatitis. Her symptoms started today. She had her gallbladder out a couple years ago. She has had 2 episodes of pancreatitis in the past few months. She was seen by a specialist in this regard and had numerous tests but did not have an ERCP which is being considered after her symptoms would settle down. She states that she did take food today. When the pain was very intense she reported some decreased sensation in her extremities and also felt some weakness. Those symptoms were transient and have resolved. Related Data Home Medications Medication Instructions Recorded Confirmed alendronate 70 mg tablet 70 mg PO .WEEKLY 03/12/22 05/02/22 levothyroxine 112 mcg tablet 112 mcg PO DAILY 03/12/22 05/02/22 Previous Rx's Medication Instructions Recorded hydrocodone 5 mg-acetaminophen 325 1 tab PO Q4-6H PRN pain #15 tabs 03/12/22 mg tablet Allergies Allergy/AdvReac Type Severity Reaction Status Date / Time morphine Allergy Mild Nausea Verified 05/02/22 15:36 levofloxacin [From Levaquin] AdvReac Verified 05/02/22 15:36 Review of Systems Status of ROS Reports: 10 or more systems reviewed and unremarkable except as noted in History and below Narrative Constitutional: No fevers, no weight gain or loss. Eyes: No discharge. No vision changes. HENT: No congestion, no sore throat, no ear pain. Cardiovascular: No chest pain, no palpitations. Respiratory: No shortness of breath, no wheezes, no cough. Gastrointestinal: No vomiting, no diarrhea. Abdominal pain as described above. Genitourinary: No dysuria, no hematuria. Musculoskeletal: Normal range of motion. Skin: No rashes, no pruritis. Neurological: No dizziness, weakness, sensory change, speech change. Endo/Heme/Allergies: No bruising or bleeding. No polydipsia. Pysch: no suicidality, no anxiety, no insomnia. All other systems reviewed and are negative. [facility] Medical History (Updated 05/02/22 @ 17:21 by Abdirizak Yeager MD) History of pancreatitis Hypothyroid Lymphoma Surgical History (Updated 03/12/22 @ 03:02 by Rand Saavedra RN) History of cholecystectomy Social History Smoking Status: Never smoker Do you use any of these nicotine containing products: None How often do you have a drink containing alcohol: never AUDIT-C Alcohol total score: 0 Non-prescribed substance use: denies use Exam Narrative: Exam Narrative: Constitutional: Well-developed, well-nourished, no acute distress. HEENT: Normocephalic, atraumatic. Neck: Normal range of motion. Nontender. Supple. Heart: Regular. No murmurs. Normal rate. Intact distal pulses. Lungs: Clear to auscultation. No chest discomfort. No wheezes, rhonchi, or rales. Abdomen: Normal bowel sounds. Tender in the upper epigastric region. No rebound tenderness. Genitalia: Deferred. Back: No midline tenderness. Normal range of motion. Extremities: Normal range of motion. No injury. Skin: Intact. No rash. Warm. No erythema or pallor. Neurologic: No altered sensation. No weakness. Alert and oriented. Psychiatric: No suicidality. No anxiety or depression. No insomnia. Nursing notes and vitals signs are reviewed. Const: Vital Signs, click to edit/add: Vital Signs - 24 hr 05/02/22 15:22 05/02/22 15:51 05/02/22 16:00 Temperature 96.9 F L Pulse Rate 90 88 Pulse Rate [Bilate ral] 97 Respiratory Rate 18 Blood Pressure Blood Pressure [Le ft Upper Arm] 143/87 H Pulse Oximetry 99 95 95 Oxygen Delivery [facility] Room Air 05/02/22 16:02 05/02/22 16:15 05/02/22 16:30 Temperature Pulse Rate 85 91 85 Pulse Rate [Bilate ral] Respiratory Rate Blood Pressure 144/75 H Blood Pressure [Le ft Upper Arm] Pulse Oximetry 94 94 96 Oxygen Delivery La thod 05/02/22 16:32 05/02/22 16:45 05/02/22 17:00 Temperature Pulse Rate 87 83 87 Pulse Rate [Bilate ral] Respiratory Rate Blood Pressure 143/77 H Blood Pressure [Le ft Upper Arm] Pulse Oximetry 96 95 96 Oxygen Delivery [facility] 05/02/22 17:02 Temperature Pulse Rate 90 Pulse Rate [Bilate ral] Respiratory Rate Blood Pressure 140/75 H Blood Pressure [Le ft Upper Arm] Pulse Oximetry 96 Oxygen Delivery Me thod Course Vital Signs Vital signs: Initial Vital Signs Temperature 96.9 F L 05/02/22 15:22 Temperature Source Temporal Artery Scan 05/02/22 15:22 Pulse Rate 97 05/02/22 15:22 Pulse Rhythm 05/02/22 15:22 Respiratory Rate 18 05/02/22 15:22 Blood Pressure 143/87 H 05/02/22 15:22 Blood Pressure Mean 105 05/02/22 15:22 Pulse Oximetry 99 05/02/22 15:22 Oxygen Delivery Method 05/02/22 15:22 Vital Signs Temperature 96.9 F L 05/02/22 15:22 Pulse Rate 97 05/02/22 15:22 Respiratory Rate 18 05/02/22 15:22 Blood Pressure 143/87 H 05/02/22 15:22 Pulse Oximetry 99 05/02/22 15:22 Oxygen Delivery Method 05/02/22 15:22 Temperature 96.9 F L 05/02/22 15:22 Pulse Rate 90 05/02/22 17:02 Respiratory Rate 18 05/02/22 15:22 Blood Pressure 140/75 H 05/02/22 17:02 Pulse Oximetry 96 05/02/22 17:02 Oxygen Delivery Method 05/02/22 15:22 MDM - Abdominal Pain MDM Narrative Medical decision making narrative: This patient comes in with symptoms suggesting recurrent pancreatitis. She is scheduled for a EUS next week as she has had pancreatitis a couple times over the past few months. Her gallbladder has been removed. She does not use alcohol. Her symptoms started today. Her lipase level returns at around 7600. Her glucose is elevated at 190. Calcium and white cell count is in normal range. I spoke with the hospitalist photographer motion picture, Dr. Kaplan, who agrees to her admission for ongoing management. Lab Data Labs: Lab Results 05/02/22 05/02/22 05/02/22 Range/Units 15:50 15:50 15:50 WBC 5.66 (4.50-11.00) K/uL RBC 4.64 (4.00-5.20) m/uL Hgb 13.9 (12.0-16.0) gm/dL Hct 41.2 (33.0-51.0) % MCV 89 (80-100) fL MCH 30 (26-34) pg MCHC 34 (32-36) gm/dL RDW Coeff of Charla 12.5 (11.5-15.5) % Plt Count 221 (140-440) K/uL Neut % (Auto) 71.9 (42.0-72.0) % Lymph % (Auto) 19.8 L (20-44) % [place] % (Auto) 6.0 (0.0-11.0) % Eos % (Auto) 1.9 (0.0-7.0) % Baso % (Auto) 0.2 (0.0-3.0) % Neut # (Auto) 4.07 (1.7-7.0) K/uL Lymph # (Auto) 1.10 (0.90-2.90) K/uL [place] # (Auto) 0.30 (0.00-0.90) K/UL Eos # (Auto) 0.11 (0.00-0.50) K/uL Baso # (Auto) 0.01 (0.00-0.30) K/uL Sodium 139 (135-149) mmol/L Potassium 3.8 (3.6-5.1) mmol/L Chloride 107 (96-114) mmol/L Carbon Dioxide 26 (20-32) mmol/L BUN 12 (7-30) mg/dL Creatinine 0.8 (0.5-1.5) mg/dL Estimated Creat Clear 86.72 Estimated GFR 86 ml/min Glucose 190 H (60-115) mg/dL Calcium 9.3 (8.4-10.6) mg/dL Total Bilirubin 0.4 (0.1-1.5) mg/dL Direct Bilirubin 0.1 (0.0-0.5) mg/dL AST 25 (12-35) U/L ALT 24 (4-35) U/L Alkaline Phosphatase 120 (40-150) U/L Total Protein 7.2 (6.0-8.3) g/dL Albumin 4.2 (3.3-5.0) g/dL Lipase 7608 H Cancelled (23-300) U/L Discharge Plan Discharge Clinical Impression: Acute appendicitis Patient Disposition: Admitted As Inpatient Condition: Unchanged Prescriptions: No Action levothyroxine 112 mcg tablet 112 mcg PO DAILY Label Comments: TAKE ONE TABLET BY MOUTH ONE TIME DAILY BEFORE BREAKFAST alendronate 70 mg tablet 70 mg PO .WEEKLY Label Comments: TAKE 1 TABLET BY MOUTH ONCE WEEKLY ON AN EMPTY STOMACH WITH A BIG GLASS OF WATER. DO NOT LIE DOWN FOR 60 MINUTES AFTERWARDS. hydrocodone-acetaminophen 5-325 mg tablet 1 tab PO Q4-6H PRN (Reason: pain) Qty: 15 0RF Follow Up/Referrals: Lefty Gomez MD [Primary Care Provider] -
[2022-05-02 16:06] LABS: Basophils Absolute Auto 0.01 K/uL (0.00-0.30); Basophils Percent Auto 0.2 % (0.0-3.0); Eosinophils Absolute Auto 0.11 K/uL (0.00-0.50); Eosinophils Percent Auto 1.9 % (0.0-7.0); Hematocrit 41.2 % (33.0-51.0); Hemoglobin* 13.9 gm/dL (12.0-16.0); Immature Granulocytes Abs Auto 0.01 K/uL (0.00-0.30); Immature Granulocytes Pct Auto 0.2 %; Lymphocytes Percent Auto 19.8 % (20-44); Mean Corpuscular HGB Conc 34 gm/dL (32-36); Mean Corpuscular Hemoglobin 30 pg (26-34); Mean Corpuscular Volume 89 fL (80-100); Neutrophils Absolute Auto 4.07 K/uL (1.7-7.0); Neutrophils Percent Auto 71.9 % (42.0-72.0); Platelet Count* 221 K/uL (140-440); RDW Coefficient of Variation % 12.5 % (11.5-15.5); Red Blood Count 4.64 m/uL (4.00-5.20); White Blood Count* 5.66 K/uL (4.50-11.00)
[2022-05-02 16:08] LABS: Slide Review Reflex No
[2022-05-02] MEDS: KETOROLAC 30 MG/ML inj IVP (16:09)
[2022-05-02] MEDS: ONDANSETRON 2 MG/ML inj 4 MG IVP ×2 (16:10→20:37)
[2022-05-02 16:20] LABS: Albumin* 4.2 g/dL (3.3-5.0)
[2022-05-02 16:21] LABS: Chloride* 107 mmol/L (96-114); Potassium* 3.8 mmol/L (3.6-5.1); Sodium* 139 mmol/L (135-149)
[2022-05-02 16:23] LABS: Alkaline Phosphatase* 120 U/L (40-150); Aspartate Amino Transferase* 25 U/L (12-35); Bilirubin Direct* 0.1 mg/dL (0.0-0.5); Bilirubin Total* 0.4 mg/dL (0.1-1.5); Blood Urea Nitrogen* 12 mg/dL (7-30); Carbon Dioxide* 26 mmol/L (20-32); Creatinine* 0.8 mg/dL (0.5-1.5); Est. Creatinine Clearance* 86.72; Estimated Glomerular Filt Rate 86 ml/min; Total Protein* 7.2 g/dL (6.0-8.3)
[2022-05-02 16:24] LABS: Alanine Aminotransferase* 24 U/L (4-35); Calcium* 9.3 mg/dL (8.4-10.6); Glucose* 190 mg/dL (60-115)
[2022-05-02 16:43] LABS: Lipase* 7608 U/L (23-300)
--- NOTE | 2022-05-02 17:25 | W.PC.EDHO ---
Primary Language: Preferred Language: Orientation Status: [x] Alert & Oriented [] Slight Confusion [] Known Dx Dementia Transfers By: [] Assist of 1 [] Assist of 2 [] Lift Active Medications Discontinued Medications Generic Name Dose Route Start Last Admin Trade Name Zo PRN Reason Stop Dose Admin Ketorolac Tromethamine 30 mg 05/02/22 15:56 05/02/22 16:09 Ketorolac 30 Mg/Ml Inj IVP 05/02/22 15:57 30 mg ONCE ONE Administration Ondansetron HCl 4 mg 05/02/22 15:56 05/02/22 16:10 Ondansetron 2 Mg/Ml Inj IVP 05/02/22 15:57 4 mg ONCE ONE Administration Description of Symptoms ED Triage Present Problem Sharp abdominal pain, rating 7, started at 1430. Description Location in upper right and sometimes in the middle. Nausea no emesis. Normal stooling pattern per pt report. Took narco 20 min ago per report. Per pt report, has had a history of pancreatitis episode in March and beginning of April. Pain Pain Intensity 5 Pain Intensity 5 Pain Intensity 6 Pain Intensity 6 Pain Intensity 7 Pain Scale Used Numeric (1 - 10) Pain Scale Used Numeric (1 - 10) Pain Scale Used Numeric (1 - 10) Oxygen Administration Pulse Oximetry 96 Pulse Oximetry 96 Pulse Oximetry 95 Pulse Oximetry 96 Pulse Oximetry 96 Pulse Oximetry 94 Pulse Oximetry 94 Pulse Oximetry 95 Pulse Oximetry 95 Pulse Oximetry 99 Oxygen Delivery Method Room Air
--- NOTE | 2022-05-02 17:46 | ED.NURSE ---
Gave report to RN on M/S. Pt is A & Ox4, vitally stable.
[2022-05-02 18:20] LABS: PCR FLU A Negative PCR FLU A (Negative); PCR FLU B Negative PCR FLU B (Negative)
[2022-05-02 18:34] LABS: SARS PCR* Negative SARS-CoV-2 (Negative)
--- NOTE | 2022-05-02 19:14 | P.IMHP_ITS ---
Hospitalist- H&P: HPI History of Present Illness Time Seen by Provider: 19:00 Date Seen: 05/02/22 Chief complaint: Pancreatitis Narrative: Aliyah Mcallister is a 56 year old female with recurrent pancreatitis who had another attack this afternoon. She felt fine this morning, had taco soup for lunch, took a nap, and woke up around 3:30 p.m. with severe epigastric pain. This is how all of her other episodes have happened. She had her 1st bout of pancreatitis in early 2019. She had another attack in June 2019 at which time she had her gallbladder out. Since then she has had 3 more attacks, including today. With the last episode her hands and fingers also went numb. Both hands and both feet became numb today when she had severe epigastric pain. She has been nauseous with the pain today but has not had any emesis. Denies chest pain or shortness of breath. Due to recurrent bouts of pancreatitis she has been seeing Dr. Henao at the [place]. She has an EUS scheduled for 05/10/2022. Review of Systems Status of ROS: Reports: 10 or more systems reviewed and unremarkable except as noted in History and below [facility] Medical History (Updated 05/02/22 @ 20:29 by Kaylee Kaplan MD) Adenomatous colon polyp History of pancreatitis Hypothyroid Impaired fasting glucose Lymphoma Migraine Osteoporosis Surgical History (Updated 05/02/22 @ 18:09 by Kaylee Kaplan MD) H/O section H/O thyroidectomy History of cholecystectomy (06/23/19) S/P colonoscopy S/P tendon repair Family History (Updated 05/02/22 @ 18:11 by Kaylee Kaplan MD) Brother Asthma Diabetes Obesity Brother Diabetes Father Prostate cancer Diabetes Stroke Grandmother Diabetes Social History (Updated 05/02/22 @ 20:12 by Kaylee Kaplan MD) Narrative: . She cares for her 2 grandchildren during the day. Never smoker. Weekly in summer. In winter less than once a month, but did have two drinks on two different days this past week. No recreational drugs. FULL CODE. Highest level of school completed/degree received: don't know Smoking Status: Never smoker Do you use any of these nicotine containing products: None How often do you have a drink containing alcohol: never AUDIT-C Alcohol total score: 0 Non-prescribed substance use: denies use Caffeine: No service: No Meds Home Medications and Allergies Home Medications Medication Instructions Recorded Confirmed Type alendronate 70 mg tablet 70 mg PO .WEEKLY 03/12/22 05/02/22 History levothyroxine 112 mcg tablet 112 mcg PO DAILY 03/12/22 05/02/22 History calcium carbonate 500 mg calcium 500 mg PO 3XW 05/02/22 05/02/22 History (1,250 mg) tablet (Oyster Shell Calcium) cholecalciferol (vitamin D3) 50 50 mcg PO DAILY 05/02/22 05/02/22 History mcg (2,000 unit) tablet fexofenadine 180 mg tablet 180 mg PO DAILY 05/02/22 05/02/22 History (Maria Elena Allergy) levalbuterol tartrate 45 1 inh inhalation Q4H PRN 05/02/22 05/02/22 History mcg/actuation aerosol inhaler multivitamin 1 tab PO DAILY 05/02/22 05/02/22 History omega 4-qna-uhm-fish oil 290 1 cap PO DAILY 05/02/22 05/02/22 History mg-430 mg-1.4 gram capsule (EPA-DHA 720) Allergies Allergy/AdvReac Type Severity Reaction Status Date / Time morphine Allergy Mild Nausea Verified 05/02/22 15:36 levofloxacin [From Levaquin] AdvReac Verified 05/02/22 15:36 Exam Narrative: Exam Narrative: General: No acute distress. Awake alert oriented x3. HEENT: Normocephalic atraumatic, pupils equally round and reactive to light and accommodation. Oropharynx clear. Mucous membranes are moist. No cervical lymphadenopathy, thyromegaly or carotid bruits. No JVD. Cardiovascular: Regular rate and rhythm. No murmurs, gallops, or rubs. Chest: No increased work of breathing. Clear to auscultation bilaterally. No crackles or wheezes. Abdomen: Bowel sounds hypoactive. Soft, nondistended, tender in the epigastrium, right upper quadrant, and exquisitely tender in the right lower quadrant. Mild guarding in the right lower quadrant, no rebound tenderness. No hepatosplenomegaly or masses. Extremities: No edema, no cyanosis or clubbing. Skin: No jaundice, no pallor, no rashes. Neuro: Grossly intact. No focal deficits. Const: Vital Signs, click to edit/add: Vital Signs - 24 hr 05/02/22 15:22 05/02/22 15:51 05/02/22 16:00 Temperature 96.9 F L Pulse Rate 90 88 Pulse Rate [Bilate ral] 97 Pulse Rate [Pulse Oximeter] Respiratory Rate 18 Blood Pressure Blood Pressure [Le ft Upper Arm] 143/87 H Pulse Oximetry 99 95 95 Oxygen Delivery [facility] Room Air 05/02/22 16:02 05/02/22 16:15 05/02/22 16:30 Temperature Pulse Rate 85 91 85 Pulse Rate [Bilate ral] Pulse Rate [Pulse Oximeter] Respiratory Rate Blood Pressure 144/75 H Blood Pressure [Le ft Upper Arm] Pulse Oximetry 94 94 96 Oxygen Delivery [facility] 05/02/22 16:32 05/02/22 16:45 05/02/22 17:00 Temperature Pulse Rate 87 83 87 Pulse Rate [Bilate ral] Pulse Rate [Pulse Oximeter] Respiratory Rate Blood Pressure 143/77 H Blood Pressure [Le ft Upper Arm] Pulse Oximetry 96 95 96 Oxygen Delivery [facility] 05/02/22 17:02 05/02/22 17:03 05/02/22 17:15 Temperature Pulse Rate 90 91 89 Pulse Rate [Bilate ral] Pulse Rate [Pulse Oximeter] Respiratory Rate Blood Pressure 140/75 H Blood Pressure [Le ft Upper Arm] Pulse Oximetry 96 97 96 Oxygen Delivery [facility] 05/02/22 17:30 05/02/22 17:32 05/02/22 18:35 Temperature 97.6 F Pulse Rate 87 88 Pulse Rate [Bilate ral] Pulse Rate [Pulse Oximeter] 96 Respiratory Rate 18 Blood Pressure 132/93 H Blood Pressure [Le ft Upper Arm] Pulse Oximetry 95 96 96 Oxygen Delivery [facility] Room Air Hospitalist - H&P: Result Labs Labs: Short CBC 05/02/22 Range/Units 15:50 WBC 5.66 (4.50-11.00) K/uL Hgb 13.9 (12.0-16.0) gm/dL Hct 41.2 (33.0-51.0) % Plt Count 221 (140-440) K/uL BMP 05/02/22 15:50 Sodium 139 Potassium 3.8 Chloride 107 Carbon Dioxide 26 BUN 12 Creatinine 0.8 Glucose 190 H Calcium 9.3 Liver Function 05/02/22 Range/Units 15:50 Total Bilirubin 0.4 (0.1-1.5) mg/dL Direct Bilirubin 0.1 (0.0-0.5) mg/dL AST 25 (12-35) U/L ALT 24 (4-35) U/L Alkaline Phosphatase 120 (40-150) U/L Albumin 4.2 (3.3-5.0) g/dL Assessment and Plan Assessment and plan (1) Acute pancreatitis: Status: Acute (2) History of pancreatitis: Problem comment: - Thought to be gallstone pancreatitis originally; cholecystectomy 06/2019, but continues to have episodes of pancreatitis - Very little alcohol use, did have two drinks this past week. - Sees Dr. Henao at [facility]. Scheduled for EUS 05/10/22. Status: Chronic (3) Hypothyroid: Status: Chronic (4) Impaired fasting glucose: Status: Chronic (5) Lymphoma: Problem comment: Hodgkin's, treated with radiation and chemo at age 26 Status: Chronic Plan 56-year-old female with recurrent acute pancreatitis, status post cholecystectomy in 2019, very little alcohol use, although did have to drinks this past week. Admit with IV fluids and IV Dilaudid and ketorolac for pain. Due to severe right lower quadrant pain with mild guarding, I will check a CT abdomen and pelvis. NPO at least until the results of the CT are back. Impaired fasting glucose, typically she is diet controlled. Will check a hemoglobin A1c.
--- NOTE | 2022-05-02 19:32 | CRLHL7_ITS ---
For Patients: As a result of the Century Cures Act, medical imaging exams and procedure reports are released immediately into your electronic medical record. You may view this report before your referring provider. If you have questions, please contact your health care provider. INDICATION: Epigastric abdomen pain. Elevated lipase. Right lower quadrant pain. History of Hodgkin`s lymphoma. TECHNIQUE: CT abdomen and pelvis acquired with 85 cc Isovue 370 IV contrast. COMPARISON: 03/12/2022. FINDINGS: Lower chest: Unremarkable. Liver: Unremarkable. Normal in size and attenuation. No suspicious masses. Gallbladder and bile ducts: Unremarkable. No stones or inflammation. No biliary dilatation. Pancreas: Inflammation/edema again demonstrated in the pancreaticoduodenal groove. No sign of abscess or pseudocyst. Spleen: Unremarkable. Normal in size. No masses. Adrenal glands: Unremarkable. No nodules. Kidneys: Unremarkable. No suspicious masses, stones, or hydronephrosis. GI tract: Unremarkable. Normal in caliber. No sign of mass or inflammation. Normal appendix. Vasculature: Abdominal aorta is normal in caliber. Mesenteric arteries are patent. Lymph nodes: No lymphadenopathy. Peritoneum/Abdominal Wall: Unremarkable. No sign of mass or infiltration. No free air or significant free fluid. Pelvis: Unremarkable. Bones: Unremarkable for age. IMPRESSION: Recurrent uncomplicated pancreatitis, similar in appearance to the prior exam from approximately 7 weeks ago. Please note that all CT scans at this facility use dose modulation, iterative reconstruction, and/or weight-based dosing when appropriate to reduce radiation dose to as low as reasonably achievable. Dictated by Andrew Deng MD @ 05/02/2022 10:42:58 PM (Electronically Signed)
[2022-05-02] MEDS: HYDROmorphone 0.5 mg/0.5 ml inj IVP ×2 (20:37→23:22)
[2022-05-02 21:02] LABS: Triglycerides* 236 mg/dL (40-149)
[2022-05-02] MEDS: LACTATED RINGERS 1000 ML 1,000 ML 125 ML IV (21:49)
[2022-05-02] MEDS: SODIUM CHLORIDE 0.9 % (FLUSH) 10 ML SYRINGE 5 ML IVF (21:50)
[2022-05-02] MEDS: KETOROLAC 15 MG/ML inj IVP (21:59)
[2022-05-03] MEDS: HYDROmorphone 0.5 mg/0.5 ml inj IVP ×5 (02:27→15:10)
[2022-05-03 02:31] VITALS: BP 119/77; PULSE 76; RESP 18; TEMP 36.6; O2SAT 96
[2022-05-03] MEDS: LEVOTHYROXINE 112 MCG TABLET PO (05:32)
[2022-05-03] MEDS: LACTATED RINGERS 1000 ML 1,000 ML 125 ML IV ×3 (05:32→20:16)
--- NOTE | 2022-05-03 05:44 | PC.NURSE ---
[id number]: Patient pleasant and cooperative. Rates pain 4-7/10 with PRN Toradol and Dilaudid for relief. Declined ice or heat for pain control. Independent in room. BS hypoactive.
[2022-05-03 07:00] VITALS: BP 134/70; PULSE 80; RESP 18; TEMP 36.5; O2SAT 94
[2022-05-03 07:22] LABS: Basophils Absolute Auto 0.01 K/uL (0.00-0.30); Basophils Percent Auto 0.1 % (0.0-3.0); Eosinophils Absolute Auto 0.14 K/uL (0.00-0.50); Eosinophils Percent Auto 1.9 % (0.0-7.0); Hematocrit 40.8 % (33.0-51.0); Hemoglobin* 13.4 gm/dL (12.0-16.0); Immature Granulocytes Abs Auto 0.03 K/uL (0.00-0.30); Immature Granulocytes Pct Auto 0.4 %; Lymphocytes Percent Auto 18.8 % (20-44); Mean Corpuscular HGB Conc 33 gm/dL (32-36); Mean Corpuscular Hemoglobin 30 pg (26-34); Mean Corpuscular Volume 91 fL (80-100); Monocytes Percent Auto 7.1 % (0.0-11.0); Neutrophils Absolute Auto 5.15 K/uL (1.7-7.0); Neutrophils Percent Auto 71.7 % (42.0-72.0); Platelet Count* 200 K/uL (140-440); RDW Coefficient of Variation % 12.8 % (11.5-15.5); White Blood Count* 7.19 K/uL (4.50-11.00)
[2022-05-03 07:23] LABS: Slide Review Reflex No
[2022-05-03 07:35] LABS: Chloride* 110 mmol/L (96-114)
[2022-05-03 07:36] LABS: Potassium* 4.3 mmol/L (3.6-5.1); Sodium* 141 mmol/L (135-149)
[2022-05-03 07:38] LABS: Creatinine* 0.7 mg/dL (0.5-1.5); Est. Creatinine Clearance* 99.11; Estimated Glomerular Filt Rate 101 ml/min
[2022-05-03 07:39] LABS: Blood Urea Nitrogen* 11 mg/dL (7-30); Calcium* 8.3 mg/dL (8.4-10.6); Carbon Dioxide* 29 mmol/L (20-32); Glucose* 112 mg/dL (60-115)
[2022-05-03 07:48] LABS: Hemoglobin A1C* 6.01 % (0-5.6)
[2022-05-03 08:10] LABS: Lipase* 4790 U/L (23-300)
[2022-05-03] MEDS: KETOROLAC 15 MG/ML inj IVP (08:56)
[2022-05-03] MEDS: SODIUM CHLORIDE 0.9 % (FLUSH) 10 ML SYRINGE 5 ML IVF (08:57)
[2022-05-03 11:00] VITALS: BP 119/78; PULSE 87; RESP 18; TEMP 36.5; O2SAT 96
[2022-05-03] MEDS: PANTOPRAZOLE SODIUM 40 MG INJ IVP (11:26)
--- NOTE | 2022-05-03 11:37 | PM.IMPN1 ---
Progress Note: A&P Assessment and plan (1) Acute pancreatitis: Status: Acute (2) History of pancreatitis: Problem details: - Thought to be gallstone pancreatitis originally; cholecystectomy 06/2019, but continues to have episodes of pancreatitis - Very little alcohol use, did have two drinks this past week. - Sees Dr. Henao at [facility]. Scheduled for EUS 05/10/22. Status: Chronic (3) Hypothyroid: Status: Chronic (4) Lymphoma: Problem details: Hodgkin's, treated with radiation and chemo at age 26 Status: Chronic Plan Etiology of pancreatitis unclear; will advance diet to clear, Spoke with Dr. Henao's clinic RN; she will be contacting Dr. Henao. CT and labs faxed to [facility]. Lipase trending down. Dr Henao will contact me later today on my cell phone. Continue pain control; IVF, follow Lipase and LFTs. Add PPI. Can discharge once on oral narcotics, tolerating diet, clinical improvement. Has appointment next week with GI. Subjective Date Seen: 05/03/22 Interval history: patient admitted for pancreatitis yesterday Lipase 7600->4790 no nausea or vomiting Follows with Dr Henao ([facility]; scheduled for EUS on 05/11) endorses dyspepsia Exam Narrative: Exam Narrative: GeN: NAD HEENT: NCAT EOMI mmm CV: RRR s1 s2 LCTAB Abd: soft, nd, +bs minimal tenderness epigastric Const: Vital Signs, click to edit/add: Vital Signs - 24 hr 05/02/22 15:22 05/02/22 15:51 05/02/22 16:00 Temperature 96.9 F L Pulse Rate 90 88 Pulse Rate [Bilate ral] 97 Pulse Rate [Pulse Oximeter] Respiratory Rate 18 Blood Pressure Blood Pressure [Le ft Arm] Blood Pressure [Le ft Upper Arm] 143/87 H Pulse Oximetry 99 95 95 Oxygen Delivery Me thod Room Air 05/02/22 16:02 05/02/22 16:15 05/02/22 16:30 Temperature Pulse Rate 85 91 85 Pulse Rate [Bilate ral] Pulse Rate [Pulse Oximeter] Respiratory Rate Blood Pressure 144/75 H Blood Pressure [Le ft Arm] Blood Pressure [Le ft Upper Arm] Pulse Oximetry 94 94 96 Oxygen Delivery Me thod 05/02/22 16:32 05/02/22 16:45 05/02/22 17:00 Temperature Pulse Rate 87 83 87 Pulse Rate [Bilate ral] Pulse Rate [Pulse Oximeter] Respiratory Rate Blood Pressure 143/77 H Blood Pressure [Le ft Arm] Blood Pressure [Le ft Upper Arm] Pulse Oximetry 96 95 96 Oxygen Delivery [facility] 05/02/22 17:02 05/02/22 17:03 05/02/22 17:15 Temperature Pulse Rate 90 91 89 Pulse Rate [Bilate ral] Pulse Rate [Pulse Oximeter] Respiratory Rate Blood Pressure 140/75 H Blood Pressure [Le ft Arm] Blood Pressure [Le ft Upper Arm] Pulse Oximetry 96 97 96 Oxygen Delivery [facility] 05/02/22 17:30 05/02/22 17:32 05/02/22 18:35 Temperature 97.6 F Pulse Rate 87 88 Pulse Rate [Bilate ral] Pulse Rate [Pulse Oximeter] 96 Respiratory Rate 18 Blood Pressure 132/93 H Blood Pressure [Le ft Arm] Blood Pressure [Le ft Upper Arm] Pulse Oximetry 95 96 96 Oxygen Delivery [facility] Room Air 05/02/22 22:15 05/02/22 22:54 05/02/22 22:54 Temperature 97.6 F Pulse Rate Pulse Rate [Bilate ral] Pulse Rate [Pulse Oximeter] 93 Respiratory Rate 16 16 Blood Pressure Blood Pressure [Le ft Arm] 135/77 Blood Pressure [Le ft Upper Arm] Pulse Oximetry 93 93 93 Oxygen Delivery [facility] Room Air Room Air 05/03/22 02:31 Temperature 97.9 F Pulse Rate Pulse Rate [Bilate ral] Pulse Rate [Pulse Oximeter] 76 Respiratory Rate 18 Blood Pressure Blood Pressure [Le ft Arm] 119/77 Blood Pressure [Le ft Upper Arm] Pulse Oximetry 96 Oxygen Delivery [facility] Room Air Labs Labs: Laboratory Results - last 24 hr 05/02/22 05/02/22 05/02/22 15:50 15:50 15:50 WBC 5.66 RBC 4.64 Hgb 13.9 Hct 41.2 MCV 89 MCH 30 MCHC 34 RDW Coeff of Charla 12.5 Plt Count 221 Neut % (Auto) 71.9 Lymph % (Auto) 19.8 L [place] % (Auto) 6.0 Eos % (Auto) 1.9 Baso % (Auto) 0.2 Neut # (Auto) 4.07 Lymph # (Auto) 1.10 [place] # (Auto) 0.30 Eos # (Auto) 0.11 Baso # (Auto) 0.01 Sodium 139 Potassium 3.8 Chloride 107 Carbon Dioxide 26 BUN 12 Creatinine 0.8 Estimated Creat Clear 86.72 Estimated GFR 86 Glucose 190 H Hemoglobin A1c Calcium 9.3 Total Bilirubin 0.4 Direct Bilirubin 0.1 AST 25 ALT 24 Alkaline Phosphatase 120 Total Protein 7.2 Albumin 4.2 Triglycerides 236 H Lipase 7608 H Cancelled SARS-CoV-2 (PCR) Influenza Type A (PCR) Influenza Type B (PCR) 05/02/22 05/03/22 05/03/22 17:30 06:49 06:49 WBC 7.19 RBC 4.50 Hgb 13.4 Hct 40.8 MCV 91 MCH 30 MCHC 33 RDW Coeff of Charla 12.8 Plt Count 200 Neut % (Auto) 71.7 Lymph % (Auto) 18.8 L [place] % (Auto) 7.1 Eos % (Auto) 1.9 Baso % (Auto) 0.1 Neut # (Auto) 5.15 Lymph # (Auto) 1.40 [place] # (Auto) 0.50 Eos # (Auto) 0.14 Baso # (Auto) 0.01 Sodium 141 Potassium 4.3 Chloride 110 Carbon Dioxide 29 BUN 11 Creatinine 0.7 Estimated Creat Clear 99.11 Estimated GFR 101 Glucose 112 Hemoglobin A1c Calcium 8.3 L Total Bilirubin Direct Bilirubin AST ALT Alkaline Phosphatase Total Protein Albumin Triglycerides Lipase 4790 H SARS-CoV-2 (PCR) Negative SARS-CoV-2 Influenza Type A (PCR) Negative PCR FLU A Influenza Type B (PCR) Negative PCR FLU B 05/03/22 06:49 WBC RBC Hgb Hct MCV MCH MCHC RDW Coeff of Charla Plt Count Neut % (Auto) Lymph % (Auto) [place] % (Auto) Eos % (Auto) Baso % (Auto) Neut # (Auto) Lymph # (Auto) [place] # (Auto) Eos # (Auto) Baso # (Auto) Sodium Potassium Chloride Carbon Dioxide BUN Creatinine Estimated Creat Clear Estimated GFR Glucose Hemoglobin A1c 6.01 H Calcium Total Bilirubin Direct Bilirubin AST ALT Alkaline Phosphatase Total Protein Albumin Triglycerides Lipase SARS-CoV-2 (PCR) Influenza Type A (PCR) Influenza Type B (PCR)
[2022-05-03] MEDS: OXYCODONE 5 MG TABLET PO ×3 (12:03→20:08)
[2022-05-03] MEDS: SENNOSIDES/DOCUSATE TABLET 1 TAB PO ×2 (14:14→20:16)
[2022-05-03 15:00] VITALS: BP 125/68; PULSE 91; RESP 18; TEMP 36.5; O2SAT 96
[2022-05-03] MEDS: ONDANSETRON 2 MG/ML inj 4 MG IVP ×2 (16:12→21:44)
--- NOTE | 2022-05-03 19:28 | PC.NURSE ---
End of shift note: Patient pleasant and cooperative.? Rates pain 4-7/10 with PRN Dilauded and Oxy for relief see eMAR.?Independent in room.? BS active. Pt. advanced to clears. tolerating well so far. Nauseous x1 an hour after clears, PRN zofran administered w/relief. Pain still holding at a 4. Pt. ambulated hallway w/spouse and tolerated well. VSS
[2022-05-03 20:00] VITALS: BP 135/75; PULSE 89; RESP 16; TEMP 36.7; O2SAT 96
[2022-05-03 23:00] VITALS: RESP 18; O2SAT 97
[2022-05-04] MEDS: PROCHLORPERAZINE 10 MG TABLET 5 MG PO (00:33)
[2022-05-04 00:45] VITALS: BP 156/80; PULSE 94; RESP 18; TEMP 36.8; O2SAT 96
[2022-05-04] MEDS: HYDROmorphone 0.5 mg/0.5 ml inj IVP ×2 (01:16→04:43)
[2022-05-04 03:00] VITALS: RESP 16
[2022-05-04] MEDS: ONDANSETRON 2 MG/ML inj 4 MG IVP (04:43)
[2022-05-04] MEDS: LACTATED RINGERS 1000 ML 1,000 ML 125 ML IV ×3 (04:43→20:42)
--- NOTE | 2022-05-04 05:41 | PC.NURSE ---
[id number]: Patient with increased nausea this shift and emesis x1. MD updated and PRN Compazine ordered. Zofran x2 administered. NPO. Pain controlled with Dilaudid. Independent in room. Ayan at bedside during the evening and supportive.
[2022-05-04 07:00] VITALS: BP 149/76; PULSE 104; RESP 17; TEMP 36.8; O2SAT 92
[2022-05-04] MEDS: PROCHLORPERAZINE 5 MG/ML VIAL 10 MG IV (07:04)
[2022-05-04 10:37] LABS: Eosinophils Absolute Auto 0.02 K/uL (0.00-0.50); Eosinophils Percent Auto 0.2 % (0.0-7.0); Hematocrit 40.6 % (33.0-51.0); Hemoglobin* 13.6 gm/dL (12.0-16.0); Immature Granulocytes Abs Auto 0.01 K/uL (0.00-0.30); Immature Granulocytes Pct Auto 0.1 %; Mean Corpuscular HGB Conc 34 gm/dL (32-36); Mean Corpuscular Hemoglobin 30 pg (26-34); Mean Corpuscular Volume 89 fL (80-100); Monocytes Percent Auto 3.5 % (0.0-11.0); Neutrophils Percent Auto 89.2 % (42.0-72.0); Platelet Count* 207 K/uL (140-440); RDW Coefficient of Variation % 12.3 % (11.5-15.5); Red Blood Count 4.55 m/uL (4.00-5.20)
[2022-05-04 10:42] LABS: Slide Review Reflex No
[2022-05-04 10:51] LABS: Ionized Calcium* 1.07 mmol/L (1.11-1.30)
[2022-05-04 11:00] VITALS: BP 143/77; PULSE 100; RESP 17; TEMP 36.8; O2SAT 92
[2022-05-04 11:27] LABS: Chloride* 106 mmol/L (96-114)
[2022-05-04 11:28] LABS: Albumin* 4.2 g/dL (3.3-5.0); Sodium* 138 mmol/L (135-149)
[2022-05-04 11:30] LABS: Creatinine* 0.5 mg/dL (0.5-1.5); Est. Creatinine Clearance* 138.75; Estimated Glomerular Filt Rate 109 ml/min
[2022-05-04 11:31] LABS: Alkaline Phosphatase* 105 U/L (40-150); Aspartate Amino Transferase* 28 U/L (12-35); Bilirubin Direct* 0.1 mg/dL (0.0-0.5); Bilirubin Total* 0.8 mg/dL (0.1-1.5); Blood Urea Nitrogen* 6 mg/dL (7-30); Calcium* 8.3 mg/dL (8.4-10.6); Carbon Dioxide* 26 mmol/L (20-32); Gamma Glutamyl Transpeptidase* 29 U/L (8-55); Lipase* 1447 U/L (23-300); Magnesium* 1.9 mg/dL (1.5-2.6); Total Protein* 7.3 g/dL (6.0-8.3)
[2022-05-04 11:32] LABS: Alanine Aminotransferase* 22 U/L (4-35)
[2022-05-04 11:48] LABS: Glucose* 142 mg/dL (60-115)
[2022-05-04] MEDS: CALCIUM GLUC 1,000MG/50 ML 1,000 MG/50 ML BAG 100 MG IVPB (11:57)
--- NOTE | 2022-05-04 12:57 | PM.IMPN1 ---
Progress Note: A&P Assessment and plan (1) Acute pancreatitis: Problem details: lipase downtrending. attempt clear liquids. reglan before meals. stay tonight. trend labs. Status: Acute (2) History of pancreatitis: Problem details: - Thought to be gallstone pancreatitis originally; cholecystectomy 06/2019, but continues to have episodes of pancreatitis (3 since early 04/01) - Very little alcohol use, did have two drinks this past week. - Sees Dr. Henao at [facility]. Scheduled for EUS/ERCP 05/06/22 Status: Chronic (3) Hypothyroid: Status: Chronic (4) Lymphoma: Problem details: Hodgkin's, treated with radiation and chemo at age 26 Status: Chronic Subjective Date Seen: 05/04/22 Interval history: Daily Progress Note - Hospital Medicine Day #: 3 CC: Pancreatitis OVERNIGHT UPDATES FROM STAFF & MED, LAB, IMAGING UPDATES Patient had a rough night. Lots of nausea and retching. Zofran, IV and p.o. Compazine did not make much of a difference. IV Compazine and fluids eventually settled her. She is tired this morning. Not really complaining of abdominal pain. No fever. Mildly hypertensive. Mildly tachycardic. Her GI doctor, Dr. Henao, has moved upper EUS and potential ERCP for 05/06. T-max 98.3 Blood pressure 143/77, 149/76 Pulse 100-104 Respiratory rate 17, unlabored Pulse ox 92% on room air Weight 96.9 kilos CBC is stable. There is no leukocytosis to be concerned with. Hemoglobin is stable. Platelets are stable. Electrolytes are stable. Creatinine is stable, unremarkable. Ionized calcium is a bit low at 1.07 Magnesium is unremarkable. LFTs are unremarkable. CRP is 5.0 Lipase is down trending from 4790 down to 1447 Objective: Vitals: see above Lungs: Clear. Cardiac: S1S2. Disposition/Potential discharge - Likely to return to previous living situation - will discharge in the a.m.. Total time is 35 minutes with greater than 50% spent in counseling and coordination of care. Follows with Dr Henao ([facility]; scheduled for EUS on 05/11) endorses dyspepsia Exam Const: Vital Signs, click to edit/add: Vital Signs - 24 hr 05/03/22 15:00 05/03/22 15:00 05/03/22 15:00 Temperature Pulse Rate [Pulse Oximeter] 91 Respiratory Rate 18 18 Blood Pressure [Le ft Arm] Pulse Oximetry 96 96 Oxygen Delivery Ut thod Room Air 05/03/22 15:00 05/03/22 23:00 05/03/22 23:00 Temperature 97.7 F Pulse Rate [Pulse Oximeter] 91 Respiratory Rate 18 18 Blood Pressure [Le ft Arm] 125/68 Pulse Oximetry 96 97 97 Oxygen Delivery [facility] Room Air Room Air 05/03/22 20:00 05/04/22 00:45 05/04/22 03:00 Temperature 98.1 F 98.3 F Pulse Rate [Pulse Oximeter] 89 94 Respiratory Rate 16 18 16 Blood Pressure [Le ft Arm] 135/75 156/80 H Pulse Oximetry 96 96 Oxygen Delivery [facility] Room Air Room Air 05/04/22 07:00 05/04/22 07:00 05/04/22 07:00 Temperature Pulse Rate [Pulse Oximeter] 104 H Respiratory Rate 17 17 Blood Pressure [Le ft Arm] Pulse Oximetry 92 92 Oxygen Delivery [facility] Room Air 05/04/22 07:00 05/04/22 11:00 Temperature 98.3 F 98.3 F Pulse Rate [Pulse Oximeter] 104 H 100 Respiratory Rate 17 17 Blood Pressure [Le ft Arm] 149/76 H 143/77 H Pulse Oximetry 92 92 Oxygen Delivery Ut thod Room Air Room Air Labs Labs: Laboratory Results - last 24 hr 05/04/22 05/04/22 05/04/22 10:28 10:28 10:28 WBC 9.30 RBC 4.55 Hgb 13.6 Hct 40.6 MCV 89 MCH 30 MCHC 34 RDW Coeff of Charla 12.3 Plt Count 207 Neut % (Auto) 89.2 H Lymph % (Auto) 7.0 L [place] % (Auto) 3.5 Eos % (Auto) 0.2 Baso % (Auto) 0.0 Neut # (Auto) 8.30 H Lymph # (Auto) 0.70 L [place] # (Auto) 0.30 Eos # (Auto) 0.02 Baso # (Auto) 0.00 Sodium Cancelled Potassium Cancelled Chloride Cancelled Carbon Dioxide Cancelled BUN Cancelled Creatinine Cancelled Estimated Creat Clear Cancelled Estimated GFR Cancelled Glucose Cancelled Calcium Cancelled Ionized Calcium Joo 1.07 L Magnesium Total Bilirubin Cancelled Direct Bilirubin GGT AST Cancelled ALT Cancelled Alkaline Phosphatase Cancelled C-Reactive Protein Total Protein Cancelled Albumin Cancelled Lipase Cancelled 05/04/22 10:28 WBC RBC Hgb Hct MCV MCH MCHC RDW Coeff of Charla Plt Count Neut % (Auto) Lymph % (Auto) [place] % (Auto) Eos % (Auto) Baso % (Auto) Neut # (Auto) Lymph # (Auto) [place] # (Auto) Eos # (Auto) Baso # (Auto) Sodium 138 Potassium 4.0 Chloride 106 Carbon Dioxide 26 BUN 6 L Creatinine 0.5 Estimated Creat Clear 138.75 Estimated GFR 109 Glucose 142 H Calcium 8.3 L Ionized Calcium Joo Magnesium 1.9 Total Bilirubin 0.8 Direct Bilirubin 0.1 GGT 29 AST 28 ALT 22 Alkaline Phosphatase 105 C-Reactive Protein 5.0 H Total Protein 7.3 Albumin 4.2 Lipase 1447 H
[2022-05-04] MEDS: METOCLOPRAMIDE 10 MG TABLET PO ×2 (13:43→17:00)
[2022-05-04 15:00] VITALS: BP 148/81; PULSE 105; RESP 16; TEMP 36.7; O2SAT 96
--- NOTE | 2022-05-04 18:15 | PC.NURSE ---
Patient pleasant and cooperative, pt. states she feels weak from throwing up all night and not eating anything. NPO for most of the morning, nausea and vomiting subsided, MD okayed to advance to clears and pt. is tolerating well. MD requested pt. take PRN Reglan 30 min prior to eating or drinking anything, administered x2. see eMAR. Pt. denies pain, independent in room.?BS active and pt. states she has been passing gas. Pt. advanced to clears. tolerating well so far. Pt. ambulated hallway, family at bedside intermittently throughout the day. VSS but mildly hypertensive and mildly tachycardiac all day.
[2022-05-04 19:59] VITALS: BP 157/81; PULSE 102; RESP 18; TEMP 37.1; O2SAT 93
[2022-05-04] MEDS: SODIUM CHLORIDE 0.9 % (FLUSH) 10 ML SYRINGE 5 ML IVF (20:42)
[2022-05-05 00:29] VITALS: BP 147/78; PULSE 93; RESP 18; TEMP 36.8; O2SAT 93
[2022-05-05] MEDS: METOCLOPRAMIDE 10 MG TABLET PO ×2 (01:35→05:54)
[2022-05-05 03:27] VITALS: BP 151/82; PULSE 91; RESP 16; TEMP 36.9; O2SAT 92
--- NOTE | 2022-05-05 05:30 | PC.NURSE ---
pt is alert and oriented. Tolerating clear liquid diet. No nausea. BP slightly elevated. HR slightly tachy. Provider is aware per previous nurse. No BM this shift. Last BM 05/02. Needs Reglan 30 mins before meal. Pt is independent in room and walked the mccarthy with spouse before bed. Denies pain or discomfort.
[2022-05-05] MEDS: LACTATED RINGERS 1000 ML 1,000 ML 125 ML IV (05:44)
[2022-05-05] MEDS: LEVOTHYROXINE 112 MCG TABLET PO (05:54)
[2022-05-05 07:00] VITALS: BP 148/89; PULSE 94; RESP 20; TEMP 36.7; O2SAT 92; O2SAT 97
[2022-05-05 09:51] LABS: Hemoglobin* 12.7 gm/dL (12.0-16.0); Mean Corpuscular HGB Conc 33 gm/dL (32-36); Mean Corpuscular Hemoglobin 30 pg (26-34); Mean Corpuscular Volume 90 fL (80-100); Platelet Count* 187 K/uL (140-440); Red Blood Count 4.24 m/uL (4.00-5.20); White Blood Count* 6.36 K/uL (4.50-11.00)
[2022-05-05 09:53] LABS: Slide Review Reflex No
--- NOTE | 2022-05-05 09:59 | PM.DS1 ---
DS: Providers Provider Date Seen: 05/05/22 Date of admission: 05/02/22 19:32 Primary care physician: Lefty Gomez MD Admitting Clinician: Kaylee Kaplan MD Attending Physician on discharge: Lulú Galvan MD [facility] Date of Discharge: 05/05/22 DS: Diagnosis Discharge Diagnosis (1) Acute pancreatitis: Status: Acute Problem details: Third episode since the beginning of March 2022. Unclear etiology as she has already had a lap cholecystectomy. Not a drinker. EUS/ERCP with [facility] scheduled tomorrow 05/06/2022. Discharging today 05/05/2022 on Reglan, Zofran p.r.n.. (2) Hypothyroid: Status: Chronic Problem details: Continue home meds. TSH within range. (3) Impaired fasting glucose: Status: Chronic Problem details: Noted. Lifestyle changes needed. DS: Summary Hospital Course Hospital Course: HOSPITALIST DISCHARGE SUMMARY ATTENDING PHYSICIAN: Lulú Galvan MD FINAL DIAGNOSIS: Acute recurrent pancreatitis Hypothyroid HOSPITAL FOLLOWUP ISSUES: 1. GI follow-up is already established. Patient will have an EUS/ERCP 05/06/2022. REFERRALS WHILE ADMITTED: None REFERRALS AFTER DISCHARGE: GI BRIEF HOSPITAL COURSE: Aliyah is a 56-year-old with recurrent acute pancreatitis. S her 3rd episode in 6-7 weeks. Etiology is unclear. She had a lap cholecystectomy in 2019. She is not a drinker. Her triglycerides are within normal range. She is scheduled to have an outpatient GI evaluation tomorrow, 05/06/2022. An EUS/ERCP is planned. Her course here was uncomplicated. She needed analgesia, IV fluids, antiemetics. She progressed to a regular diet on the morning of discharge. She was comfortable with her discharge. She is anxious to follow-up as an outpatient as stated above. SUBSTANTIVE NOTATIONS ON IMAGING, LAB, MICROBIOLOGY/PATHOLOGY STUDIES: CT abdomen pelvis Recurrent uncomplicated pancreatitis, similar in appearance to the prior exam from approximately 7 weeks ago. Lipase on admission was 7600, down trended to 1400 on the day of discharge. LFTs were normal. GGT normal. Triglycerides 236. Renal function and electrolytes normal. Glucose 142, fasting. Last A1c 6.01 on 05/03/2022. She did not have an elevated white blood cell count. Her hemoglobin was normal. DISCHARGE MEDICATIONS: See Reconciled list - SIGNIFICANT CHANGES: Continued her home med regimen, p.r.n. Zofran and Reglan offered to patient. Sent to her pharmacy. REVIEW OF SYSTEMS No new chest pain or dyspnea Pain controlled No voiding difficulties Tolerating diet challenge PHYSICAL EXAM: CONSTITUTIONAL: Dressed, reading, comfortable. VITAL SIGNS: see record. HEENT: Normocephalic, atraumatic. PERRL, EOMI, conjunctivae pink, no scleral icterus. Ears and nose externally normal. Pharynx normal. NECK: No JVD. No carotid bruit, no thyromegaly, no adenopathy. CHEST: Clear to auscultation bilaterally. HEART: S1 and S2 normal. Edema ABDOMEN: Soft, nontender. Normal bowel sounds. MUSCULOSKELETAL: No gross joint deformity or swelling. NEURO: Cranial nerves intact. Grossly intact. No asymmetric findings. SKIN: No rashes, petechiae, concerning changes PSYCHIATRIC: Mood euthymic. DISPOSITION: Home with family Time spent on discharge 37 minutes. Status at Discharge Functional status at discharge: independent ambulation Overall status at discharge: patient is back to baseline Time Spent with Patient Time attestation: Total time spent providing and/or coordinating discharge services: Time spent: Greater than 30 minutes Exam Const: Vital Signs, click to edit/add: Vital Signs - 24 hr 05/04/22 11:00 05/04/22 15:00 05/04/22 15:00 Temperature 98.3 F Pulse Rate [Pulse Oximeter] 100 105 H Respiratory Rate 17 16 Blood Pressure [Le ft Arm] 143/77 H Pulse Oximetry 92 96 Oxygen Delivery Me thod Room Air 05/04/22 15:00 05/04/22 15:00 05/04/22 19:59 Temperature 98.0 F 98.8 F Pulse Rate [Pulse Oximeter] 105 H 102 H Respiratory Rate 16 16 18 Blood Pressure [Le ft Arm] 148/81 H 157/81 H Pulse Oximetry 96 96 93 Oxygen Delivery Ar thod Room Air Room Air Room Air 05/05/22 00:29 05/05/22 00:29 05/05/22 00:29 Temperature 98.2 F Pulse Rate [Pulse Oximeter] 93 Respiratory Rate 18 Blood Pressure [Le ft Arm] 147/78 H Pulse Oximetry 93 93 93 Oxygen Delivery [facility] Room Air Room Air 05/05/22 03:27 05/05/22 07:00 05/05/22 07:00 Temperature 98.5 F Pulse Rate [Pulse Oximeter] 91 Respiratory Rate 16 Blood Pressure [Le ft Arm] 151/82 H Pulse Oximetry 92 92 97 Oxygen Delivery Me thod Room Air Room Air 05/05/22 07:00 05/05/22 07:00 Temperature 98.0 F Pulse Rate [Pulse Oximeter] 94 94 Respiratory Rate 20 20 Blood Pressure [Le ft Arm] 148/89 H Pulse Oximetry 97 Oxygen Delivery Me thod Room Air DS: Data Data Completed and Pending Labs on day of discharge: Labs from last 24 hours 05/05/22 05/05/22 05/04/22 09:31 09:31 10:28 WBC 6.36 RBC 4.24 Hgb 12.7 Hct 38.0 MCV 90 MCH 30 MCHC 33 RDW Coeff of Charla Plt Count 187 Neut % (Auto) Lymph % (Auto) [place] % (Auto) Eos % (Auto) Baso % (Auto) Neut # (Auto) Lymph # (Auto) [place] # (Auto) Eos # (Auto) Baso # (Auto) Sodium Pending 138 Potassium Pending 4.0 Chloride Pending 106 Carbon Dioxide Pending 26 BUN Pending 6 L Creatinine Pending 0.5 Estimated Creat Clear 138.75 Estimated GFR Pending 109 Glucose Pending 142 H Calcium Pending 8.3 L Ionized Calcium Joo Magnesium 1.9 Total Bilirubin Pending 0.8 Direct Bilirubin 0.1 GGT 29 AST Pending 28 ALT Pending 22 Alkaline Phosphatase Pending 105 C-Reactive Protein Pending 5.0 H Total Protein Pending 7.3 Albumin Pending 4.2 Lipase Pending 1447 H 05/04/22 05/04/22 05/04/22 10:28 10:28 10:28 WBC 9.30 RBC 4.55 Hgb 13.6 Hct 40.6 MCV 89 MCH 30 MCHC 34 RDW Coeff of Charla 12.3 Plt Count 207 Neut % (Auto) 89.2 H Lymph % (Auto) 7.0 L [place] % (Auto) 3.5 Eos % (Auto) 0.2 Baso % (Auto) 0.0 Neut # (Auto) 8.30 H Lymph # (Auto) 0.70 L [place] # (Auto) 0.30 Eos # (Auto) 0.02 Baso # (Auto) 0.00 Sodium Cancelled Potassium Cancelled Chloride Cancelled Carbon Dioxide Cancelled BUN Cancelled Creatinine Cancelled Estimated Creat Clear Cancelled Estimated GFR Cancelled Glucose Cancelled Calcium Cancelled Ionized Calcium Joo 1.07 L Magnesium Total Bilirubin Cancelled Direct Bilirubin GGT AST Cancelled ALT Cancelled Alkaline Phosphatase Cancelled C-Reactive Protein Total Protein Cancelled Albumin Cancelled Lipase Cancelled Discharge Plan Discharge Disposition: Home, Self-Care Date of Admission: 05/02/22 19:32 Attending Provider on Discharge: Lulú Galvan Primary Care Provider: Lefty Gomez Condition: Unchanged Anticipated Discharge Date/Time: 05/05/22 09:55 Discharge Medications: New metoclopramide HCl 10 mg Tablet 10 mg PO QID PRNQty: 60 0RF ondansetron 4 mg tablet,disintegrating 4 mg PO Q8H PRN (Reason: nausea and vomiting) Qty: 30 0RF Continued cholecalciferol (vitamin D3) 50 mcg (2,000 unit) tablet 50 mcg PO DAILY levalbuterol tartrate 45 mcg/actuation HFA aerosol inhaler 1 inh inhalation Q4H PRN EPA-DHA 720 290-430-1.4 mg-mg-gram capsule 1 cap PO DAILY multivitamin Tablet 1 tab PO DAILY fexofenadine [Maria Elena Allergy] 180 mg tablet 180 mg PO DAILY calcium carbonate [Oyster Shell Calcium] 500 mg calcium (1,250 mg) tablet 500 mg PO 3XW levothyroxine 112 mcg tablet 112 mcg PO DAILY Label Comments: TAKE ONE TABLET BY MOUTH ONE TIME DAILY BEFORE BREAKFAST alendronate 70 mg tablet 70 mg PO .WEEKLY Label Comments: TAKE 1 TABLET BY MOUTH ONCE WEEKLY ON AN EMPTY STOMACH WITH A BIG GLASS OF WATER. DO NOT LIE DOWN FOR 60 MINUTES AFTERWARDS. Discontinued hydrocodone-acetaminophen 5-325 mg tablet 1 tab PO Q4-6H PRN (Reason: pain) Qty: 15 0RF Discharge Orders: Discharge Order (Routine); Ordered 05/05/22 Ordered By: Lulú Galvan Activity Level: Activity as Tolerated Discharge Diet: Regular Follow Up Appointments: [facility] [Provider Group] - 05/06/22 (Pt already has appt at 0530 on 05/05/22 for EUS/possible ERCP) [facility] Inst[facility]
[2022-05-05 10:02] LABS: Chloride* 106 mmol/L (96-114)
[2022-05-05 10:03] LABS: Potassium* 3.5 mmol/L (3.6-5.1); Sodium* 139 mmol/L (135-149)
[2022-05-05 10:05] LABS: Bilirubin Total* 0.6 mg/dL (0.1-1.5); Creatinine* 0.6 mg/dL (0.5-1.5); Est. Creatinine Clearance* 115.62; Estimated Glomerular Filt Rate 105 ml/min
[2022-05-05 10:06] LABS: Alanine Aminotransferase* 21 U/L (4-35); Alkaline Phosphatase* 90 U/L (40-150); Aspartate Amino Transferase* 24 U/L (12-35); Blood Urea Nitrogen* 7 mg/dL (7-30); Carbon Dioxide* 26 mmol/L (20-32); Glucose* 148 mg/dL (60-115); Lipase* 1115 U/L (23-300); Total Protein* 6.9 g/dL (6.0-8.3)
[2022-05-05 10:07] LABS: Calcium* 8.5 mg/dL (8.4-10.6)
[2022-05-05 10:09] LABS: C Reactive Protein* 4.3 mg/dL (0.5-1.0)
[2022-05-05 10:29] VITALS: BP 132/93; PULSE 88; RESP 20; TEMP 36.7
== END 2022-05-05 10:49 | disposition home or self-care (01) | DRG 440 ==
LOC: ED 17:36 → MEDSURG 18:30
PROVIDERS: Family Medicine; Hospitalist; Admitting Provider Family Medicine; Emergency Provider Emergency Medicine Emergency Medical Services; PCP Family Medicine; Visit Provider Family Medicine
DX: K85.90 Acute pancreatitis without necrosis or infection, unspecified (principal); E03.9 Hypothyroidism, unspecified; R73.01 Impaired fasting glucose; Z87.19 Personal history of other diseases of the digestive system; Z90.49 Acquired absence of other specified parts of digestive tract; Z85.71 Personal history of Hodgkin lymphoma
CPT/HCPCS: 36415; 74177; 80048; 80053; 80076; 82330; 82977; 83036; 83690; 83735; 84478; 85025; 85027; 86140; 87631; 99285; A9270; C9113; J0610; J0780; J1170; J1885; J2405; J7120; Q9967

== ENCOUNTER 2022-12-23 07:04 | Observation (INO) | payer OTHER, SELFPAY ==
[2022-12-23 07:14] VITALS: BP 147/87; PULSE 95; RESP 18; TEMP 36.4; O2SAT 99; BMI 27.2
--- NOTE | 2022-12-23 07:18 | ED_ITS ---
I did not see this patient. HPI - General Adult General Time Seen by Provider: 07:19 Date Seen: 12/23/22 Chief complaint: Abdominal Pain Stated complaint: Pancreatitis Time Seen by Provider: 12/23/22 07:18 Source: patient History of Present Illness HPI narrative: Aliyah is a 57 year old female past medical history of lymphoma treated with radiation, hypothyroidism status post thyroidectomy, recurrent pancreatitis status post cholecystectomy presents emerged department via private car with abdominal pain. Patient states pain started about 1 hour ago, epigastric in nature constant, no radiation, sharp, associated nausea but no vomiting, patient took 1 Zofran at home, she also has Vicodin but did not take with any, pain is 8/10, patient denies any diarrhea, blood in the stool, no urinary complaints. She denies any fevers or chills. Patient states she went to bed last night feeling well. No history of any alcohol use. Patient states she still as recurrent pancreatitis, she did have a pancreatic stent placed at the [facility] in the past. Unclear for the etiology. No other concerns at this time. Related Data Home Medications Medication Instructions Recorded Confirmed alendronate 70 mg tablet 70 mg PO Q7D 03/12/22 12/23/22 levothyroxine 112 mcg tablet 112 mcg PO DAILY 03/12/22 12/23/22 fexofenadine 180 mg tablet 180 mg PO DAILY 05/02/22 12/23/22 (Maria Elena Allergy) levalbuterol tartrate 45 1 inh inhalation Q4H PRN 05/02/22 12/23/22 mcg/actuation aerosol inhaler multivitamin 1 tab PO DAILY 05/02/22 12/23/22 calcium-magnesium 300 mg-300 mg 1 tab PO DAILY 12/23/22 12/23/22 tablet cholecalciferol (vitamin D3) 50 50 mcg PO DAILY 12/23/22 12/23/22 mcg/drop (2,000 unit/drop) oral drops (Hwu-R-Mouiwhl Forte) bynvvq-vqeozsoq-lighqet 1 cap PO TIDWM PRN 12/23/22 12/23/22 24,000-76,000-120,000 unit capsule,delayed rel (Creon) omega 9-blu-tpf-fish oil 1,600 5 ml PO DAILY 12/23/22 12/23/22 mg-500 mg-800 mg/5 mL oral liquid (Fish Oil) tacrolimus 0.03 % topical ointment 1 applic topical BID PRN 12/23/22 12/23/22 Previous Rx's Medication Instructions Recorded oxycodone 5 mg tablet 5 mg PO Q4H PRN #45 tabs 12/24/22 Allergies Allergy/AdvReac Type Severity Reaction Status Date / Time morphine Allergy Mild Nausea Verified 12/23/22 07:56 levofloxacin [From Levaquin] AdvReac Verified 12/23/22 07:56 metoclopramide [From Reglan] AdvReac Unknown Unverified 12/23/22 13:18 Review of Systems Status of ROS: Reports: 10 or more systems reviewed and unremarkable except as noted in History and below [facility] Medical History (Updated 01/01/23 @ 00:00 by Background Daemon) Systolic murmur ?R01.1 - Cardiac murmur, unspecified (ICD-10) Osteoporosis ?M81.0 - Age-related osteoporosis without current pathological fracture (ICD- 10) Adenomatous colon polyp ?D12.6 - Benign neoplasm of colon, unspecified (ICD-10) Impaired fasting glucose ?R73.01 - Impaired fasting glucose (ICD-10) Migraine ?G43.909 - Migraine, unspecified, not intractable, without status migrainosus (ICD-10) Lymphoma ?C85.90 - Non-Hodgkin lymphoma, unspecified, unspecified site (ICD-10) History of pancreatitis ?Z87.19 - Personal history of other diseases of the digestive system (ICD-10) Hypothyroid ?E03.9 - Hypothyroidism, unspecified (ICD-10) Surgical History (Updated 05/02/22 @ 18:09 by Kaylee Kaplan MD) H/O thyroidectomy ?E89.0 - Postprocedural hypothyroidism (ICD-10) S/P tendon repair ?Z98.890 - Other specified postprocedural states (ICD-10) S/P colonoscopy ?Z98.890 - Other specified postprocedural states (ICD-10) H/O section ?Z98.891 - History of uterine scar from previous surgery (ICD-10) History of cholecystectomy (06/23/19) ?Z90.49 - Acquired absence of other specified parts of digestive tract (ICD- 10) Family History (Updated 05/02/22 @ 18:11 by Kaylee Kaplan MD) Brother Asthma Diabetes Obesity Brother Diabetes Father Prostate cancer Diabetes Stroke Grandmother Diabetes Social History (Updated 12/23/22 @ 13:17 by Marilu Marmolejo MD) Narrative: ( would be MDM if needed), 3 adult daughters. She cares for her 2 grandsons during the day. Never smoker. No ETOH since pancreatitis diagnosis (previously drank rarely). No recreational drugs. FULL C ODE. What is your current living situation?: I presently have a place to live Problems where you live: no known problems Problems where you live details: None In the past 12 months, utilities in danger of being shut off: no In past 12 months, lack of transportation kept you from medical appts, meetings, work, or getting things needed for daily living: no In the past 12 mos, have been you worried that your food would run out before you had money to buy more?: never true In the past 12 mos, the food you bought just didn't last and you didn't have money to buy more?: never true Highest level of school completed/degree received: don't know Smoking Status: Never smoker Do you use any of these nicotine containing products: None Second hand tobacco smoke exposure: No How often do you have a drink containing alcohol: never How often do you have six or more drinks on one occasion: Never AUDIT-C Alcohol total score: 0 Non-prescribed substance use: denies use Caffeine: No How often does anyone, including family, friends and others, physically hurt you : never How often does anyone, including family, friends and others, insult or talk down to you: never How often does anyone, including family, friends and others, threaten you with harm: never How often does anyone, including family, friends and others, scream or curse at you: never service: No Exam Narrative: Exam Narrative: General: In apparent distress, alert HEENT: Pupils equal round reactive to light, extraocular muscles intact Neck: Supple full range of motion Heart: Normal sinus rhythm S1-S2 Lungs: Clear to auscultation bilaterally Abdomen: Soft, tender to palpation the epigastric region, no rebound, no guarding Muscle skeletal: +5 strength upper lower extremities Neuro: Alert awake and oriented x3 Const: Vital Signs, click to edit/add: Vital Signs - 24 hr 12/23/22 07:14 Temperature 97.5 F L Pulse Rate [Right Pulse Oximeter] 95 Respiratory Rate 18 Blood Pressure [Ri ght Upper Arm] 147/87 H Pulse Oximetry 99 Oxygen Delivery Me thod Room Air Course Course ED Course: 7:15 AM: AIDET performed. Workup will include IV peripheral, will obtain CBC, CRP, lipase, CMP and urinalysis, 0.5 mg IV Dilaudid, 4 mg IV Zofran, suspect recurrent pancreatitis, other differentials considered appendicitis, aortic aneurysm, mesenteric ischemia, bowel perforation, volvulus and bowel obstruction. As well as IBD, cholecystitis, pancreatitis, hepatitis, gastritis, GERD, ACS, PUD, pyelonephritis, UTI, renal colic, stone, ovarian cyst torsion. Reevaluation(s) Time of Reevaluation #1: 09:01 Reevaluation #1: This patient was updated on her lab results CBC showed no leukocytosis, metabolic panel unchanged from previous, ED point of care troponin was negative, lipase elevated at 6585, will obtain CT abdomen pelvis with IV contrast rule out likely pancreatitis. Patient's nausea and pain has been controlled. Time of Reevaluation #2: 10:33 Reevaluation #2: IMPRESSION: Acute uncomplicated paraduodenal pancreatitis. CBC showed no leukocytosis, lipase elevated at 6585, metabolic panel within normal limits, urinalysis showed no signs of infection. She was given the above care and did well, plan would be to admit for inpatient cares. Patient and were updated on imaging results, did show acute uncomplicated paraduodenal pancreatitis, pain has been controlled, it reach out to hospitalist Dr. Ibrahim, she accepts care of the patient to a [facility] surgical bed. All questions answered. Vital Signs Vital signs: Initial Vital Signs Temperature 97.5 F L 12/23/22 07:14 Temperature Source Temporal Artery Scan 12/23/22 07:14 Pulse Rate 95 12/23/22 07:14 Respiratory Rate 18 12/23/22 07:14 Blood Pressure 147/87 H 12/23/22 07:14 Blood Pressure Mean 107 H 12/23/22 07:14 Blood Pressure Position Sitting 12/23/22 07:14 Pulse Oximetry 99 12/23/22 07:14 Oxygen Delivery Method Room Air 12/23/22 07:14 Vital Signs Temperature 97.5 F L 12/23/22 07:14 Pulse Rate 95 12/23/22 07:14 Respiratory Rate 18 12/23/22 07:14 Blood Pressure 147/87 H 12/23/22 07:14 Pulse Oximetry 99 12/23/22 07:14 Oxygen Delivery Method Room Air 12/23/22 07:14 Temperature 97.3 F L 12/24/22 07:00 Pulse Rate 72 12/24/22 07:00 Respiratory Rate 18 12/24/22 07:00 Blood Pressure 128/74 12/24/22 07:00 Pulse Oximetry 97 12/24/22 07:00 Oxygen Delivery Method Room Air 12/24/22 07:00 Medical Decision Making Lab Data Labs: Lab Results 12/23/22 12/23/22 12/23/22 Range/Units 07:40 07:50 10:18 WBC 4.29 L (4.50-11.00) K/uL RBC 4.58 (4.00-5.20) m/uL Hgb 13.6 (12.0-16.0) gm/dL Hct 40.6 (33.0-51.0) % MCV 89 (80-100) fL MCH 30 (26-34) pg MCHC 34 (32-36) gm/dL RDW Coeff of Charla 12.4 (11.5-15.5) % Plt Count 203 (140-440) K/uL Neut % (Auto) 72.5 H (42.0-72.0) % Lymph % (Auto) 20.3 (20-44) % [place] % (Auto) 6.1 (0.0-11.0) % Eos % (Auto) 0.7 (0.0-7.0) % Baso % (Auto) 0.2 (0.0-3.0) % Neut # (Auto) 3.10 (1.7-7.0) K/uL Lymph # (Auto) 0.90 (0.90-2.90) K/uL [place] # (Auto) 0.30 (0.00-0.90) K/UL Eos # (Auto) 0.00 (0.00-0.50) K/uL Baso # (Auto) 0.00 (0.00-0.30) K/uL Abs Immat Gran (auto) 0.00 (0.00-0.30) K/uL Imm/Tot Granulo (auto) 0.2 % Sodium 139 (135-149) mmol/L Potassium 3.7 (3.6-5.1) mmol/L Chloride 108 (96-114) mmol/L Carbon Dioxide 25 (20-32) mmol/L Anion Gap 6 L (7-15) mEq/L BUN 15 (7-30) mg/dL Creatinine 0.7 (0.5-1.5) mg/dL Estimated Creat Clear 97.91 Estimated GFR 100 ml/min Glucose 121 H (60-115) mg/dL Calcium 9.7 (8.4-10.6) mg/dL Total Bilirubin 0.5 (0.1-1.5) mg/dL AST 30 (12-35) U/L ALT 23 (4-35) U/L Alkaline Phosphatase 85 (40-150) U/L Troponin I < 0.01 L (0.01-0.04) ng/mL C-Reactive Protein 0.6 (0.5-1.0) mg/dL Total Protein 7.3 (6.0-8.3) g/dL Albumin 4.2 (3.3-5.0) g/dL Lipase 6585 H (23-300) U/L Urine Color Yellow (Yellow) Urine Appearance Clear (Clear) Urine pH 7.5 (5.0-8.5) Ur Specific [place] 1.015 (1.000-1.030) Urine Protein Negative (Negative) Urine Glucose (UA) Negative (Negative) Urine Ketones Negative (Negative) Urine Blood Negative (Negative) Urine Nitrite Negative (Negative) Urine Bilirubin Negative (Negative) Urine Urobilinogen 0.2 (0.2-1.0) Ur Leukocyte Esterase Negative (Negative) Discharge Plan Discharge Clinical Impression: Acute pancreatitis Patient Disposition: Admitted As Inpatient Condition: Improved Activity Level: Activity as Tolerated Discharge Diet: Regular
[2022-12-23] MEDS: ONDANSETRON 2 MG/ML inj 4 MG IVP (07:45)
[2022-12-23] MEDS: HYDROmorphone 0.5 mg/0.5 ml inj IVP (07:45)
--- NOTE | 2022-12-23 07:45 | CRLHL7_ITS ---
For Patients: As a result of the Cures Act, medical imaging exams and procedure reports are released immediately into your electronic medical record. You may view this report before your referring provider. If you have questions, please contact your health care provider. INDICATION: Pancreatitis. TECHNIQUE: CT abdomen and pelvis acquired with 95 cc Isovue 370 IV contrast. COMPARISON: 05/02/2022, 03/12/2022. FINDINGS: Lower chest: Unremarkable. Liver: Unremarkable. Normal in size and attenuation. No suspicious masses. Gallbladder and bile ducts: Cholecystectomy. Pancreas: Peripancreatic fat stranding consistent with acute pancreatitis in the region of the groove between the 2nd segment of the duodenum and pancreatic head consistent with acute uncomplicated paraduodenal pancreatitis. No peripancreatic fluid collection, inflammatory phlegmon or necrosis. Spleen: Unremarkable. Normal in size. No masses. Adrenal glands: Unremarkable. No nodules. Kidneys: Unremarkable. No suspicious masses, stones, or hydronephrosis. GI tract: Unremarkable. Normal in caliber. No sign of mass or inflammation. Normal appendix. Vasculature: Abdominal aorta is normal in caliber. Mesenteric arteries are patent. Lymph nodes: No lymphadenopathy. Peritoneum/Abdominal Wall: Unremarkable. No sign of mass or infiltration. No free air or significant free fluid. Pelvis: Unremarkable. Bones: Unremarkable for age. IMPRESSION: Acute uncomplicated paraduodenal pancreatitis. Please note that all CT scans at this facility use dose modulation, iterative reconstruction, and/or weight-based dosing when appropriate to reduce radiation dose to as low as reasonably achievable. Dictated by Camacho Godinez MD @ 12/23/2022 10:31:03 AM (Electronically Signed)
[2022-12-23 08:03] LABS: Albumin* 4.2 g/dL (3.3-5.0); Chloride* 108 mmol/L (96-114); Sodium* 139 mmol/L (135-149)
[2022-12-23 08:04] LABS: Potassium* 3.7 mmol/L (3.6-5.1)
[2022-12-23 08:05] LABS: Creatinine* 0.7 mg/dL (0.5-1.5); Est. Creatinine Clearance* 97.91; Estimated Glomerular Filt Rate 100 ml/min
[2022-12-23 08:06] LABS: Alanine Aminotransferase* 23 U/L (4-35); Alkaline Phosphatase* 85 U/L (40-150); Anion Gap 6 mEq/L (7-15); Aspartate Amino Transferase* 30 U/L (12-35); Bilirubin Total* 0.5 mg/dL (0.1-1.5); Blood Urea Nitrogen* 15 mg/dL (7-30); Carbon Dioxide* 25 mmol/L (20-32); Total Protein* 7.3 g/dL (6.0-8.3)
[2022-12-23 08:07] LABS: Calcium* 9.7 mg/dL (8.4-10.6); Glucose* 121 mg/dL (60-115)
[2022-12-23 08:09] LABS: C Reactive Protein* 0.6 mg/dL (0.5-1.0)
[2022-12-23 08:15] LABS: Basophils Percent Auto 0.2 % (0.0-3.0); Eosinophils Percent Auto 0.7 % (0.0-7.0); Hematocrit 40.6 % (33.0-51.0); Hemoglobin* 13.6 gm/dL (12.0-16.0); Immature Granulocytes Pct Auto 0.2 %; Lymphocytes Percent Auto 20.3 % (20-44); Mean Corpuscular HGB Conc 34 gm/dL (32-36); Mean Corpuscular Hemoglobin 30 pg (26-34); Mean Corpuscular Volume 89 fL (80-100); Monocytes Percent Auto 6.1 % (0.0-11.0); Neutrophils Percent Auto 72.5 % (42.0-72.0); Platelet Count* 203 K/uL (140-440); RDW Coefficient of Variation % 12.4 % (11.5-15.5); Red Blood Count 4.58 m/uL (4.00-5.20); White Blood Count* 4.29 K/uL (4.50-11.00)
[2022-12-23 08:31] LABS: Slide Review Reflex No
[2022-12-23 08:32] LABS: Lipase* 6585 U/L (23-300)
[2022-12-23 08:45] LABS: Troponin I* < 0.01 ng/mL (0.01-0.04)
[2022-12-23 10:29] LABS: Appearance Urine Clear (Clear); Bilirubin Urine Negative (Negative); Blood Urine Negative (Negative); Color Urine Yellow (Yellow); Glucose Urine Negative (Negative); Ketones Urine Negative (Negative); Leukocyte Esterase Urine Negative (Negative); Nitrite Urine Negative (Negative); Protein Urine Negative (Negative); Specific Gravity Urine 1.015 (1.000-1.030); Urobilinogen Urine 0.2 (0.2-1.0); pH Urine 7.5 (5.0-8.5)
[2022-12-23 12:28] VITALS: BP 146/73; PULSE 84; RESP 16; TEMP 35.8; O2SAT 95
--- NOTE | 2022-12-23 12:57 | P.IMHP_ITS ---
Hospitalist- H&P: HPI History of Present Illness Date Seen: 12/23/22 Chief complaint: Pancreatitis Narrative: Aliyah Mcallister is a 57 year old female with a history of idiopathic pancreatitis, who noted acute onset of abdominal pain this morning. She had not yet eaten anything today; nothing abnormal for supper last night. No vomiting, no diarrhea. No other concerning symptoms. Symptoms consistent with previous pancreatitis flares; she took 1 Zofran which was not helpful, then presented to the emergency room. ER course and findings: - elevated lipase of 5000 - acute uncomplicated paraduodenal pancreatitis on CT - pain relief with IV hydromorphone Aliyah experienced her 1st bout of pancreatitis in April 2019. She has had multiple episodes since then; has had a cholecystectomy and followed with GI (ERCP and stent placement with subsequent removal earlier this year) and source unable to be identified. She has been able to treat flares at home once or twice with NPO status and oral [place], but pain this morning was fairly severe. History is updated below. PCP is Dr. Gomez locally. Review of Systems Status of ROS: Reports: 10 or more systems reviewed and unremarkable except as noted in History and below [facility] Medical History (Updated 12/23/22 @ 13:28 by Marilu Marmolejo MD) Osteoporosis ?M81.0 - Age-related osteoporosis without current pathological fracture (ICD- 10) Adenomatous colon polyp ?D12.6 - Benign neoplasm of colon, unspecified (ICD-10) Impaired fasting glucose ?R73.01 - Impaired fasting glucose (ICD-10) Migraine ?G43.909 - Migraine, unspecified, not intractable, without status migrainosus (ICD-10) Lymphoma ?C85.90 - Non-Hodgkin lymphoma, unspecified, unspecified site (ICD-10) History of pancreatitis ?Z87.19 - Personal history of other diseases of the digestive system (ICD-10) Hypothyroid ?E03.9 - Hypothyroidism, unspecified (ICD-10) Surgical History (Updated 05/02/22 @ 18:09 by Kaylee Kaplan MD) H/O thyroidectomy ?E89.0 - Postprocedural hypothyroidism (ICD-10) S/P tendon repair ?Z98.890 - Other specified postprocedural states (ICD-10) S/P colonoscopy ?Z98.890 - Other specified postprocedural states (ICD-10) H/O section ?Z98.891 - History of uterine scar from previous surgery (ICD-10) History of cholecystectomy (06/23/19) ?Z90.49 - Acquired absence of other specified parts of digestive tract (ICD- 10) Family History (Updated 05/02/22 @ 18:11 by Kaylee Kaplan MD) Brother Asthma Diabetes Obesity Brother Diabetes Father Prostate cancer Diabetes Stroke Grandmother Diabetes Social History (Updated 12/23/22 @ 13:17 by Marilu Marmolejo MD) Narrative: ( would be MDM if needed), 3 adult daughters. She cares for her 2 grandsons during the day. Never smoker. No ETOH since pancreatitis diagnosis (previously drank rarely). No recreational drugs. FULL CODE. What is your current living situation?: I presently have a place to live Problems where you live: no known problems Problems where you live details: None In the past 12 months, utilities in danger of being shut off: no In the past 12 mos, have been you worried that your food would run out before you had money to buy more?: never true In the past 12 mos, the food you bought just didn't last and you didn't have money to buy more?: never true Highest level of school completed/degree received: don't know Smoking Status: Never smoker Do you use any of these nicotine containing products: None Second hand tobacco smoke exposure: No How often do you have a drink containing alcohol: never How often do you have six or more drinks on one occasion: Never AUDIT-C Alcohol total score: 0 Non-prescribed substance use: denies use Caffeine: No How often does anyone, including family, friends and others, physically hurt you : never How often does anyone, including family, friends and others, insult or talk down to you: never How often does anyone, including family, friends and others, threaten you with harm: never How often does anyone, including family, friends and others, scream or curse at you: never service: No Meds Home Medications and Allergies Home Medications Medication Instructions Recorded Confirmed Type alendronate 70 mg tablet 70 mg PO Q7D 03/12/22 12/23/22 History levothyroxine 112 mcg tablet 112 mcg PO DAILY 03/12/22 12/23/22 History fexofenadine 180 mg tablet 180 mg PO DAILY 05/02/22 12/23/22 History (Maria Elena Allergy) levalbuterol tartrate 45 1 inh inhalation Q4H PRN 05/02/22 12/23/22 History mcg/actuation aerosol inhaler multivitamin 1 tab PO DAILY 05/02/22 12/23/22 History calcium-magnesium 300 mg-300 mg 1 tab PO DAILY 12/23/22 12/23/22 History tablet cholecalciferol (vitamin D3) 50 50 mcg PO DAILY 12/23/22 12/23/22 History mcg/drop (2,000 unit/drop) oral drops (Ezt-Z-Pveuijl Forte) xuwjmm-ojrunmvc-juhtjam 1 cap PO TIDWM PRN 12/23/22 12/23/22 History 24,000-76,000-120,000 unit capsule,delayed rel (Creon) omega 6-pyw-qzf-fish oil 1,600 5 ml PO DAILY 12/23/22 12/23/22 History mg-500 mg-800 mg/5 mL oral liquid (Fish Oil) tacrolimus 0.03 % topical ointment 1 applic topical BID PRN 12/23/22 12/23/22 History Allergies Allergy/AdvReac Type Severity Reaction Status Date / Time morphine Allergy Mild Nausea Verified 12/23/22 07:56 levofloxacin [From Levaquin] AdvReac Verified 12/23/22 07:56 metoclopramide [From Reglan] AdvReac Unknown Unverified 12/23/22 13:18 Exam Narrative: Exam Narrative: GEN: Alert and oriented, sitting comfortably in bed and nontoxic in appearance HEENT: Normal external ears, EOMIs bilaterally, no scleral icterus CV: RRR, soft systolic murmur without concerning features R radiation R: LCTA bilaterally without concerning wheezing, rales, or rhonchi Ab: Guarded given pain, no concerning distension Ext: wwp, no concerning edema Skin: No concerning skin lesions, no jaundice, no rashes on exposed skin Neuro: Nonfocal Psych: Appropriate Const: Vital Signs, click to edit/add: Vital Signs - 24 hr 12/23/22 07:14 Temperature 97.5 F L Pulse Rate [Right Pulse Oximeter] 95 Respiratory Rate 18 Blood Pressure [Ri ght Upper Arm] 147/87 H Pulse Oximetry 99 Oxygen Delivery Me thod Room Air Hospitalist - H&P: Result Labs Labs: Short CBC 12/23/22 Range/Units 07:40 WBC 4.29 L (4.50-11.00) K/uL Hgb 13.6 (12.0-16.0) gm/dL Hct 40.6 (33.0-51.0) % Plt Count 203 (140-440) K/uL BMP 12/23/22 07:40 Sodium 139 Potassium 3.7 Chloride 108 Carbon Dioxide 25 BUN 15 Creatinine 0.7 Glucose 121 H Calcium 9.7 Cardiac Enzymes 12/23/22 Range/Units 07:50 Troponin I < 0.01 L (0.01-0.04) ng/mL Liver Function 12/23/22 Range/Units 07:40 Total Bilirubin 0.5 (0.1-1.5) mg/dL AST 30 (12-35) U/L ALT 23 (4-35) U/L Alkaline Phosphatase 85 (40-150) U/L Albumin 4.2 (3.3-5.0) g/dL Urine 12/23/22 Range/Units 10:18 Urine Color Yellow (Yellow) Urine Appearance Clear (Clear) Urine pH 7.5 (5.0-8.5) Ur Specific [place] 1.015 (1.000-1.030) Urine Protein Negative (Negative) Urine Glucose (UA) Negative (Negative) Assessment and Plan Assessment and plan (1) Acute pancreatitis: Problem comment: - IV fluids, NPO status - Slowly advance diet - pain medication as needed Status: Acute (2) Systolic murmur: Problem comment: - no history of this, no concerning features, likely flow - outpatient follow-up Status: Acute Plan - per above - Lovenox for ppx - updated at bedside, questions answered
[2022-12-23] MEDS: ACETAMINOPHEN 325 MG TABLET 975 MG PO (13:25)
[2022-12-23] MEDS: OXYCODONE 5 MG TABLET PO ×2 (13:26→21:02)
[2022-12-23 15:00] VITALS: BP 107/72; PULSE 75; PULSE 84; RESP 16; TEMP 36; O2SAT 95; O2SAT 96
[2022-12-23] MEDS: 0.9 % SODIUM CHLORIDE 1000 ml 1,000 ML 125 ML IV (16:37)
--- NOTE | 2022-12-23 18:27 | PC.NURSE ---
End of Shift: Pt arrived to unit via ED around 1145 d/t pancreatitis. Pt reports significant hx of pancreatitis stating this is her 6th episode this year and she presented to ED at advice of her MD from the [facility]. Pain rated at 5/10, well-controlled with oxycodone and tylenol. Ayan at bedside. Pt tolerating ice chips well, currently advancing to clear liquids. IV NS running at 125cc. IV remains patent and intact. Pt independent in room, continent with bladder. Reports last BM this AM.
[2022-12-23 19:00] VITALS: BP 122/64; PULSE 72; RESP 16; TEMP 36.1; O2SAT 96
[2022-12-23] MEDS: ENOXAPARIN 40 MG/0.4 ML INJ SUBCUT (21:02)
[2022-12-23 23:00] VITALS: BP 100/54; PULSE 78; RESP 16; TEMP 36.1; O2SAT 95
[2022-12-24] MEDS: 0.9 % SODIUM CHLORIDE 1000 ml 1,000 ML 125 ML IV (00:34)
[2022-12-24 03:00] VITALS: BP 119/66; PULSE 82; RESP 18; TEMP 36.2; O2SAT 96
[2022-12-24] MEDS: LEVOTHYROXINE 112 MCG TABLET PO (06:08)
[2022-12-24] MEDS: OMEPRAZOLE 20 MG CAPSULE DR 40 MG PO (06:08)
[2022-12-24 06:42] LABS: Basophils Absolute Auto 0.01 K/uL (0.00-0.30); Basophils Percent Auto 0.2 % (0.0-3.0); Eosinophils Absolute Auto 0.16 K/uL (0.00-0.50); Eosinophils Percent Auto 3.3 % (0.0-7.0); Hematocrit 41.3 % (33.0-51.0); Hemoglobin* 13.6 gm/dL (12.0-16.0); Immature Granulocytes Abs Auto 0.02 K/uL (0.00-0.30); Immature Granulocytes Pct Auto 0.4 %; Lymphocytes Absolute Auto 1.19 K/uL (0.90-2.90); Lymphocytes Percent Auto 24.5 % (20-44); Mean Corpuscular HGB Conc 33 gm/dL (32-36); Mean Corpuscular Hemoglobin 30 pg (26-34); Mean Corpuscular Volume 91 fL (80-100); Monocytes Percent Auto 6.6 % (0.0-11.0); Neutrophils Absolute Auto 3.16 K/uL (1.7-7.0); Platelet Count* 170 K/uL (140-440); RDW Coefficient of Variation % 12.6 % (11.5-15.5); Red Blood Count 4.56 m/uL (4.00-5.20); White Blood Count* 4.86 K/uL (4.50-11.00)
--- NOTE | 2022-12-24 06:52 | PC.NURSE ---
SHIFT NOTE -: Pt pleasant and cooperative, A&O. PRN Oxycodone given for pain x1 last evening, pain free overnight. Denies SOB, CP, and N/V. Up independent in her room. VSS on RA. Pt reports she feels much better, tolerating a clear liquid diet, pt is hopeful she can d/c home today with today.
[2022-12-24 06:55] LABS: Chloride* 111 mmol/L (96-114)
[2022-12-24 06:56] LABS: Albumin* 3.7 g/dL (3.3-5.0); Potassium* 3.8 mmol/L (3.6-5.1); Sodium* 138 mmol/L (135-149)
[2022-12-24 06:58] LABS: Creatinine* 0.7 mg/dL (0.5-1.5); Est. Creatinine Clearance* 97.91; Estimated Glomerular Filt Rate 100 ml/min
[2022-12-24 06:59] LABS: Alanine Aminotransferase* 18 U/L (4-35); Alkaline Phosphatase* 64 U/L (40-150); Anion Gap 8 mEq/L (7-15); Aspartate Amino Transferase* 31 U/L (12-35); Bilirubin Total* 0.8 mg/dL (0.1-1.5); Blood Urea Nitrogen* 9 mg/dL (7-30); Calcium* 8.4 mg/dL (8.4-10.6); Carbon Dioxide* 19 mmol/L (20-32); Glucose* 95 mg/dL (60-115); Lipase* 1002 U/L (23-300); Total Protein* 6.8 g/dL (6.0-8.3)
[2022-12-24 07:00] VITALS: BP 128/74; PULSE 72; RESP 18; TEMP 36.3; O2SAT 97
[2022-12-24 07:48] LABS: Slide Review Reflex No
--- NOTE | 2022-12-24 08:10 | P.IMPN_ITS ---
Progress Note: A&P Assessment and plan (1) Acute pancreatitis: Problem details: - IV fluids, NPO status - Slowly advance diet - pain medication as needed Status: Acute (2) Systolic murmur: Problem details: - no history of this, no concerning features, likely flow - outpatient follow-up Status: Acute Subjective Date Seen: 12/24/22 Interval history: Daily Progress Note - Hospital Medicine Day #: 2 CC: OVERNIGHT UPDATES FROM STAFF & MED, LAB, IMAGING UPDATES RN: SHIFT NOTE : Pt pleasant and cooperative, A&O. PRN Oxycodone given for pain x1 last evening, pain free overnight. Denies SOB, CP, and N/V. Up independent in her room. VSS on RA. Pt reports she feels much better, tolerating a clear liquid diet, pt is hopeful she can d/c home today with today. Afebrile Blood pressure has been low to normal Pulse rate 70s and 80s Respiratory rate 16 18 and unlabored Pulse ox 95-96% on room air Weight 88 kilos, down from 96 kilos at her April admission CBC is unremarkable. Complete metabolic panel is unremarkable. Lipase down from 6500 to [address] from admission: Acute uncomplicated paraduodenal pancreatitis. Objective: Vitals: see above Lungs: Clear. Cardiac: S1S2. Disposition/Potential discharge - Likely to return to previous living situation. Today I spent 50minutes seeing the patient, reviewing Expanse and EPIC notes/diagnostics, discussing the care plan with our care time that includes social work, PT/OT, pharmacy, RT, long-term and documenting my impressions and plan in the medical record. Exam Const: Vital Signs, click to edit/add: Vital Signs - 24 hr 12/23/22 12:28 12/23/22 15:00 12/23/22 15:00 Temperature 96.4 F L Pulse Rate [Right Pulse Oximeter] 84 84 Respiratory Rate 16 16 16 Blood Pressure [Le ft Arm] 146/73 H Pulse Oximetry 95 95 Oxygen Delivery Me thod Room Air Room Air 12/23/22 15:00 12/23/22 19:00 12/23/22 23:00 Temperature 96.8 F L 97 F L Pulse Rate [Right Pulse Oximeter] 75 72 78 Respiratory Rate 16 16 16 Blood Pressure [Le ft Arm] 107/72 122/64 Pulse Oximetry 96 96 Oxygen Delivery Me thod Room Air Room Air 12/23/22 23:00 12/23/22 23:00 12/24/22 03:00 Temperature 97 F L 97.1 F L Pulse Rate [Right Pulse Oximeter] 78 82 Respiratory Rate 16 16 18 Blood Pressure [Le ft Arm] 100/54 L 119/66 Pulse Oximetry 95 95 96 Oxygen Delivery Me thod Room Air Room Air Room Air Labs Labs: Laboratory Results - last 24 hr 12/23/22 12/23/22 12/23/22 07:40 07:50 10:18 WBC 4.29 L RBC 4.58 Hgb 13.6 Hct 40.6 MCV 89 MCH 30 MCHC 34 RDW Coeff of Charla 12.4 Plt Count 203 Neut % (Auto) 72.5 H Lymph % (Auto) 20.3 [place] % (Auto) 6.1 Eos % (Auto) 0.7 Baso % (Auto) 0.2 Neut # (Auto) 3.10 Lymph # (Auto) 0.90 [place] # (Auto) 0.30 Eos # (Auto) 0.00 Baso # (Auto) 0.00 Abs Immat Gran (auto) 0.00 Imm/Tot Granulo (auto) 0.2 Sodium 139 Potassium 3.7 Chloride 108 Carbon Dioxide 25 Anion Gap 6 L BUN 15 Creatinine 0.7 Estimated Creat Clear 97.91 Estimated GFR 100 Glucose 121 H Calcium 9.7 Total Bilirubin 0.5 AST 30 ALT 23 Alkaline Phosphatase 85 Troponin I < 0.01 L C-Reactive Protein 0.6 Total Protein 7.3 Albumin 4.2 Lipase 6585 H Urine Color Yellow Urine Appearance Clear Urine pH 7.5 Ur Specific H[place] 1.015 Urine Protein Negative Urine Glucose (UA) Negative Urine Ketones Negative Urine Blood Negative Urine Nitrite Negative Urine Bilirubin Negative Urine Urobilinogen 0.2 Ur Leukocyte Esterase Negative 12/24/22 06:18 WBC 4.86 RBC 4.56 Hgb 13.6 Hct 41.3 MCV 91 MCH 30 MCHC 33 RDW Coeff of Charla 12.6 Plt Count 170 Neut % (Auto) 65.0 Lymph % (Auto) 24.5 [place] % (Auto) 6.6 Eos % (Auto) 3.3 Baso % (Auto) 0.2 Neut # (Auto) 3.16 Lymph # (Auto) 1.19 [place] # (Auto) 0.30 Eos # (Auto) 0.16 Baso # (Auto) 0.01 Abs Immat Gran (auto) 0.02 Imm/Tot Granulo (auto) 0.4 Sodium 138 Potassium 3.8 Chloride 111 Carbon Dioxide 19 L Anion Gap 8 BUN 9 Creatinine 0.7 Estimated Creat Clear 97.91 Estimated GFR 100 Glucose 95 Calcium 8.4 Total Bilirubin 0.8 AST 31 ALT 18 Alkaline Phosphatase 64 Troponin I C-Reactive Protein Total Protein 6.8 Albumin 3.7 Lipase 1002 H Urine Color Urine Appearance Urine pH Ur Specific [place] Urine Protein Urine Glucose (UA) Urine Ketones Urine Blood Urine Nitrite Urine Bilirubin Urine Urobilinogen Ur Leukocyte Esterase
[2022-12-24] MEDS: FEXOFENADINE 180 MG TABLET PO (09:26)
--- NOTE | 2022-12-24 10:54 | NUTR.NU ---
RDN screen. Pt with acute on chronic pancreatitis. Met with patient. Since , pt has become well acquainted with low fat, small meals to manage her pancreatitis. Avoids beef, high fat pork, butter, moran, and large meals. Pt was able to describe two acute episodes of the past two months and the foods that she had eaten. Is aware and motivated to avoid those. Pt does not always use Creon with meals but is considering taking one tablet with each meal. Patient verbalized understanding and written materials not provided.
--- NOTE | 2022-12-24 11:02 | P.DS_ITS ---
DS: Providers Provider Date Seen: 12/24/22 Date of admission: 12/23/22 12:06 Primary care physician: Lefty Gomez MD Admitting Clinician: Marilu Marmolejo MD Attending Physician on discharge: [facility]charge: 12/24/22 DS: Diagnosis Discharge Diagnosis (1) Acute pancreatitis: Status: Acute Problem details: -pain resolved; diet increased. discharge criteria met. (2) History of pancreatitis: Status: Chronic Problem details: - Thought to be gallstone pancreatitis originally; cholecystectomy 06/2019, but continues to have episodes of pancreatitis (3 since early 04/01) - no ETOH - Had ERCP/stent placement 07/01, stent removed spring 2022 -follows with GI (3) Hypothyroid: Status: Chronic Problem details: Continue home meds. TSH within range. DS: Summary Hospital Course Hospital Course: FINAL DIAGNOSIS/FOLLOW UP ISSUES: Acute recurrent pancreatitis, uncomplicated BRIEF HOSPITAL COURSE: Patient was admitted for 2 days. Synopsis of acute inpatient issues are outlined above. Chronic medical conditions with notable findings outlined above. DISCHARGE MEDICATIONS: See Reconciled list - SIGNIFICANT CHANGES: I just refilled her oxycodone so she can do the best she can at managing these acute flares at home. Is well-versed in NPO and soft diet with nausea and pain control. Specific instructions to the patient and follow-up are outlined below. REVIEW OF SYSTEMS No new chest pain or dyspnea Pain controlled No voiding difficulties Tolerating diet challenge PHYSICAL EXAM: CONSTITUTIONAL: Alert, smiling. Reports no pain this morning. VITAL SIGNS: see record. HEENT: Normocephalic, atraumatic. PERRL, EOMI, conjunctivae pink, no scleral icterus. Ears and nose externally normal. Pharynx normal. NECK: No JVD. No carotid bruit, no thyromegaly, no adenopathy. CHEST: Clear to auscultation bilaterally. HEART: S1 and S2 normal. Edema ABDOMEN: Soft, nontender. Normal bowel sounds. MUSCULOSKELETAL: No gross joint deformity or swelling. NEURO: Cranial nerves intact. Grossly intact. No asymmetric findings. SKIN: No rashes, petechiae, concerning changes PSYCHIATRIC: Mood euthymic. DISPOSITION: Home with spouse Time spent on discharge 37 minutes. Status at Discharge Functional status at discharge: independent ambulation Overall status at discharge: patient is back to baseline Time Spent with Patient Time attestation: Total time spent providing and/or coordinating discharge services: Exam Const: Vital Signs, click to edit/add: Vital Signs - 24 hr 12/23/22 12:28 12/23/22 15:00 12/23/22 15:00 Temperature 96.4 F L Pulse Rate [Right Pulse Oximeter] 84 84 Respiratory Rate 16 16 16 Blood Pressure [Le ft Arm] 146/73 H Pulse Oximetry 95 95 Oxygen Delivery Me thod Room Air Room Air 12/23/22 15:00 12/23/22 19:00 12/23/22 23:00 Temperature 96.8 F L 97 F L Pulse Rate [Right Pulse Oximeter] 75 72 78 Respiratory Rate 16 16 16 Blood Pressure [Le ft Arm] 107/72 122/64 Pulse Oximetry 96 96 Oxygen Delivery Me thod Room Air Room Air 12/23/22 23:00 12/23/22 23:00 12/24/22 03:00 Temperature 97 F L 97.1 F L Pulse Rate [Right Pulse Oximeter] 78 82 Respiratory Rate 16 16 18 Blood Pressure [Le ft Arm] 100/54 L 119/66 Pulse Oximetry 95 95 96 Oxygen Delivery Nd thod Room Air Room Air Room Air 12/24/22 07:00 12/24/22 07:00 12/24/22 07:00 Temperature 97.3 F L Pulse Rate [Right Pulse Oximeter] 72 72 Respiratory Rate 18 18 18 Blood Pressure [Le ft Arm] 128/74 Pulse Oximetry 97 97 Oxygen Delivery Me thod Room Air Room Air DS: Data Data Completed and Pending Labs on day of discharge: Labs from last 24 hours 12/24/22 06:18 WBC 4.86 RBC 4.56 Hgb 13.6 Hct 41.3 MCV 91 MCH 30 MCHC 33 RDW Coeff of Charla 12.6 Plt Count 170 Neut % (Auto) 65.0 Lymph % (Auto) 24.5 [place] % (Auto) 6.6 Eos % (Auto) 3.3 Baso % (Auto) 0.2 Neut # (Auto) 3.16 Lymph # (Auto) 1.19 [place] # (Auto) 0.30 Eos # (Auto) 0.16 Baso # (Auto) 0.01 Abs Immat Gran (auto) 0.02 Imm/Tot Granulo (auto) 0.4 Sodium 138 Potassium 3.8 Chloride 111 Carbon Dioxide 19 L Anion Gap 8 BUN 9 Creatinine 0.7 Estimated Creat Clear 97.91 Estimated GFR 100 Glucose 95 Calcium 8.4 Total Bilirubin 0.8 AST 31 ALT 18 Alkaline Phosphatase 64 Total Protein 6.8 Albumin 3.7 Lipase 1002 H Discharge Plan Discharge Disposition: Home, Self-Care Date of Admission: 12/23/22 12:06 Attending Provider on Discharge: Lulú Galvan Primary Care Provider: Lefty Gomez Condition: Improved Anticipated Discharge Date/Time: 12/24/22 10:58 Discharge Medications: New oxycodone 5 mg Tablet 5 mg PO Q4H PRNQty: 45 0RF Continued levalbuterol tartrate 45 mcg/actuation HFA aerosol inhaler 1 inh inhalation Q4H PRN multivitamin Tablet 1 tab PO DAILY fexofenadine [Maria Elena Allergy] 180 mg tablet 180 mg PO DAILY calcium-magnesium 300-300 mg tablet 1 tab PO DAILY Rx Instructions: administer with a meal [id number] Forte 50 mcg/drop (2, 000 unit/drop) drops 50 mcg PO DAILY Fish Oil 1,600-500-800 mg/5 mL liquid 5 ml PO DAILY Creon 24,000-76,000 -120,000 unit capsule,delayed release(DR/EC) 1 cap PO TIDWM PRN tacrolimus 0.03 % ointment 1 applic topical BID PRN levothyroxine 112 mcg tablet 112 mcg PO DAILY alendronate 70 mg tablet 70 mg PO Q7D Patient Comments: TAKE 1 TABLET BY MOUTH ONCE WEEKLY ON AN EMPTY STOMACH WITH A BIG GLASS OF WATER. DO NOT LIE DOWN FOR 60 MINUTES AFTERWARDS. Rx Instructions: Takes on Tuesday Discharge Orders: Discharge Order (Routine); Ordered 12/24/22 Ordered By: Lulú Galvan Activity Level: Activity as Tolerated Discharge Diet: Regular Follow Up Appointments: Lefty Gomez MD [Primary Care Provider] - (as needed, patient has appt with specialist in February. ) Forms: [employer] Info Instructions
--- NOTE | 2022-12-24 13:57 | PC.NURSE ---
Patient alert and oriented x4, Up independently in room, tolerating a full liquid diet. Denies N/V/SOB or pain. Patient was discharged today at 1300 accompanied by spouse. Patient's IV removed intact. Belongings sheet signed and discharge instructions signed. Patient verbalized understanding of discharge.
== END 2022-12-24 13:00 | disposition home or self-care (01) ==
LOC: ED 10:35 → MEDSURG 12:07
PROVIDERS: Admitting Provider Family Medicine; Emergency Provider Student in an Organized Health Care Education/Training Program; PCP Family Medicine; Visit Provider Family Medicine
DX: K85.90 Acute pancreatitis without necrosis or infection, unspecified (principal); R74.8 Abnormal levels of other serum enzymes; R01.1 Cardiac murmur, unspecified; R11.0 Nausea; M81.0 Age-related osteoporosis without current pathological fracture; E03.9 Hypothyroidism, unspecified; D12.6 Benign neoplasm of colon, unspecified; Z98.891 History of uterine scar from previous surgery; Z87.19 Personal history of other diseases of the digestive system; Z92.3 Personal history of irradiation; Z85.72 Personal history of non-Hodgkin lymphomas; Z87.898 Personal history of other specified conditions; Z90.49 Acquired absence of other specified parts of digestive tract; Z98.890 Other specified postprocedural states
CPT/HCPCS: 36415; 74177; 80053; 81003; 83690; 84484; 85025; 86140; 96361; 96372; 96374; 96375; 99283; 99285; A9270; G0378; J1170; J1650; J2405; J7030; Q9967

== ENCOUNTER 2023-03-30 16:17 | Emergency (ER) | payer OTHER, SELFPAY ==
--- NOTE | 2023-03-30 16:25 | CRLHL7_ITS ---
For Patients: As a result of the Cures Act, medical imaging exams and procedure reports are released immediately into your electronic medical record. You may view this report before your referring provider. If you have questions, please contact your health care provider. Indication: Left ankle pain Technique: Left ankle 3 views Comparison: None Findings: Bones: Alignment is normal. No fractures or bone lesions. Joint spaces: Joint spaces are well maintained. No degenerative changes. Soft tissues: Mild soft tissue swelling. Impression: Mild soft tissue swelling without evidence of fracture. Dictated by Dion Govea MD @ 03/30/2023 5:30:23 PM (Electronically Signed)
--- NOTE | 2023-03-30 16:27 | CRLHL7_ITS ---
For Patients: As a result of the Century Cures Act, medical imaging exams and procedure reports are released immediately into your electronic medical record. You may view this report before your referring provider. If you have questions, please contact your health care provider. INDICATION: Pain. TECHNIQUE: Right knee 3 views. COMPARISON: Right knee radiographs 11/21/2017. FINDINGS: No acute fracture or dislocation. Severe narrowing of the patellofemoral joint space with subchondral sclerosis. Tricompartmental spurring. Small knee joint effusion. Soft tissues are unremarkable. IMPRESSION: 1. Degenerative changes of the knee greatest in the patellofemoral compartment. 2. Small knee joint effusion. Dictated by Shalonda Anaya MD @ 03/30/2023 5:34:44 PM (Electronically Signed)
[2023-03-30 16:30] VITALS: BP 158/88; PULSE 102; RESP 16; TEMP 36.6; O2SAT 100; BMI 26.8
--- NOTE | 2023-03-30 16:59 | ED_ITS ---
HPI - Fall General Time Seen by Provider: 16:59 Date Seen: 03/30/23 Chief Complaint: Fall/Minor Trauma Stated Complaint: Fell, L ankle/R knee injury Time Seen by Provider: 03/30/23 16:48 Source: patient and RN notes reviewed Mode of arrival: wheelchair Limitations: no limitations History of Present Illness HPI Narrative: Patient comes in after fall, was going down step and left ankle gave out. She went onto her right knee has pain, as she was waiting in lobby noted that her pants were feeling tight due to swelling. She has had prior injury to this leg before remotely. Did not hit head, no LOC, did not fall on arms/wrists/hands. Does feel that her right toes bent back, doesn't feel that they are injured. She notes that the knee hurts with bending, doesn't really hurt when she stands straight on it. MD complaint: fall Related Data Home Medications Medication Instructions Recorded Confirmed alendronate 70 mg tablet 70 mg PO Q7D 03/12/22 12/23/22 levothyroxine 112 mcg tablet 112 mcg PO DAILY 03/12/22 12/23/22 fexofenadine 180 mg tablet 180 mg PO DAILY 05/02/22 12/23/22 (Maria Elena Allergy) levalbuterol tartrate 45 1 inh inhalation Q4H PRN 05/02/22 12/23/22 mcg/actuation aerosol inhaler multivitamin 1 tab PO DAILY 05/02/22 12/23/22 calcium-magnesium 300 mg-300 mg 1 tab PO DAILY 12/23/22 12/23/22 tablet cholecalciferol (vitamin D3) 50 50 mcg PO DAILY 12/23/22 12/23/22 mcg/drop (2,000 unit/drop) oral drops (Cid-L-Iplggou Forte) hzgecj-chxprrsz-fylrbxx 1 cap PO TIDWM PRN 12/23/22 12/23/22 24,000-76,000-120,000 unit capsule,delayed rel (Creon) omega 0-vzy-evc-fish oil 1,600 5 ml PO DAILY 12/23/22 12/23/22 mg-500 mg-800 mg/5 mL oral liquid (Fish Oil) tacrolimus 0.03 % topical ointment 1 applic topical BID PRN 12/23/22 12/23/22 Allergies Allergy/AdvReac Type Severity Reaction Status Date / Time morphine Allergy Mild Nausea Verified 12/23/22 07:56 levofloxacin [From Levaquin] AdvReac Verified 12/23/22 07:56 metoclopramide [From Reglan] AdvReac Unknown Unverified 12/23/22 13:18 Review of Systems Narrative: As per HPI. PFS PFS Medical History Systolic murmur ?R01.1 - Cardiac murmur, unspecified (ICD-10) Osteoporosis ?M81.0 - Age-related osteoporosis without current pathological fracture (ICD- 10) Adenomatous colon polyp ?D12.6 - Benign neoplasm of colon, unspecified (ICD-10) Impaired fasting glucose ?R73.01 - Impaired fasting glucose (ICD-10) Migraine ?G43.909 - Migraine, unspecified, not intractable, without status migrainosus (ICD-10) Lymphoma ?C85.90 - Non-Hodgkin lymphoma, unspecified, unspecified site (ICD-10) History of pancreatitis ?Z87.19 - Personal history of other diseases of the digestive system (ICD-10) Hypothyroid ?E03.9 - Hypothyroidism, unspecified (ICD-10) Surgical History H/O thyroidectomy ?E89.0 - Postprocedural hypothyroidism (ICD-10) S/P tendon repair ?Z98.890 - Other specified postprocedural states (ICD-10) S/P colonoscopy ?Z98.890 - Other specified postprocedural states (ICD-10) H/O section ?Z98.891 - History of uterine scar from previous surgery (ICD-10) History of cholecystectomy (06/23/19) ?Z90.49 - Acquired absence of other specified parts of digestive tract (ICD- 10) Family History (Updated 05/02/22 @ 18:11 by Kaylee Kaplan MD) Brother Asthma Diabetes Obesity Brother Diabetes Father Prostate cancer Diabetes Stroke Grandmother Diabetes Social History Narrative: ( would be MDM if needed), 3 adult daughters. She cares for her 2 grandsons during the day. Never smoker. No ETOH since pancreatitis diagnosis (previously drank rarely). No recreational drugs. FULL CODE. What is your current living situation?: I presently have a place to live Problems where you live: no known problems Problems where you live details: None In the past 12 months, utilities in danger of being shut off: no In past 12 months, lack of transportation kept you from medical appts, meetings, work, or getting things needed for daily living: no In the past 12 mos, have been you worried that your food would run out before you had money to buy more?: never true In the past 12 mos, the food you bought just didn't last and you didn't have money to buy more?: never true Highest level of school completed/degree received: don't know Smoking Status: Never smoker Do you use any of these nicotine containing products: None Second hand tobacco smoke exposure: No How often do you have a drink containing alcohol: never How often do you have six or more drinks on one occasion: Never AUDIT-C Alcohol total score: 0 Non-prescribed substance use: denies use Caffeine: No How often does anyone, including family, friends and others, physically hurt you : never How often does anyone, including family, friends and others, insult or talk down to you: never How often does anyone, including family, friends and others, threaten you with harm: never How often does anyone, including family, friends and others, scream or curse at you: never service: No Exam Const: Vital Signs, click to edit/add: Vital Signs - 24 hr 03/30/23 16:30 Temperature 97.9 F Pulse Rate [Pulse Oximeter] 102 H Respiratory Rate 16 Blood Pressure [Ri ght Upper Arm] 158/88 H Pulse Oximetry 100 Oxygen Delivery Me thod Room Air This patient is alert, interactive, no apparent distress. Right knee has l ongitudinal lateral scar. Can lift leg, seems to have joint line tenderness and effusion, pain with bending. Did not mobilize further, will review xray images. Has some mild swelling/ecchymosis anterior to lateral malleolus, almost in midfoot region, is obviously tender there. Not necessarily tender over the malleoli. Toes fine bilaterally, neurovascular intact. Documenting provider has reviewed patient's vital signs: yes Course Course ED Course: Patient had imaging appropriately ordered by triage nursing of her right knee and left ankle on arrival. Do think she also needs imaging of the left foot as there is some tenderness in the midfoot area. Need to rule out underlying fracture. We will get some ice for her. There is no need for any neuro imaging, she did not hit her head, no loss of consciousness. This was a mechanism of the fall, no other reason. Patient had some Tylenol prior to arrival. Reevaluation(s) Time of Reevaluation #1: 18:12 Reevaluation #1: Have reviewed with patient that there is no evidence of any fracture. The left ankle, midfoot areas likely a sprain or just soft tissue change. Her right knee however I am concerned about more significant injury. I would recommend a knee immobilizer, they have crutches at home, orthopedic follow-up. We discussed cartilage tears, ligament injuries. With the effusion in the pain in her knee, do think she needs further evaluation with Orthopedics. They can re-evaluate and see if she might need an MRI. Vital Signs Vital signs: Initial Vital Signs Temperature 97.9 F 03/30/23 16:30 Temperature Source Temporal Artery Scan 03/30/23 16:30 Pulse Rate 102 H 03/30/23 16:30 Respiratory Rate 16 03/30/23 16:30 Blood Pressure 158/88 H 03/30/23 16:30 Blood Pressure Mean 111 H 03/30/23 16:30 Blood Pressure Position Sitting 03/30/23 16:30 Pulse Oximetry 100 03/30/23 16:30 Oxygen Delivery Method Room Air 03/30/23 16:30 Vital Signs Temperature 97.9 F 03/30/23 16:30 Pulse Rate 102 H 03/30/23 16:30 Respiratory Rate 16 03/30/23 16:30 Blood Pressure 158/88 H 03/30/23 16:30 Pulse Oximetry 100 03/30/23 16:30 Oxygen Delivery Method Room Air 03/30/23 16:30 Temperature 97.9 F 03/30/23 16:30 Pulse Rate 102 H 03/30/23 16:30 Respiratory Rate 16 03/30/23 16:30 Blood Pressure 158/88 H 03/30/23 16:30 Pulse Oximetry 100 12/20/23 16:30 Oxygen Delivery Method Room Air 03/30/23 16:30 MDM - Fall Imaging Data XR right knee: Attestation: I have reviewed the pertinent imaging results. My impression: No definite fracture visualized on my preliminary review. Radiologist's impression: Patient: JULIANA HAYES Facility:?[facility] Patient ID:?[id number] Site Patient ID:?[id number]. Site :?1965 Study:?XRay Knee Right 3 views-03/30/2023 5:01:01 PM Ordering Physician:Irene Lott Final Report: INDICATION: Pain. TECHNIQUE: Right knee 3 views. COMPARISON: Right knee radiographs 11/21/2017. FINDINGS: No acute fracture or dislocation. Severe narrowing of the patellofemoral joint space with subchondral sclerosis. Tricompartmental spurring. Small knee joint effusion. Soft tissues are unremarkable. IMPRESSION: 1. Degenerative changes of the knee greatest in the patellofemoral compartment. 2. Small knee joint effusion. Dictated by hSalonda Anaya MD @ 03/30/2023 5:34:44 PM (Electronic Signature) XR left ankle: Attestation: I have reviewed the pertinent imaging results. My impression: I see no evidence of acute fracture my preliminary review. Radiologist's impression: Patient: JULIANA HAYES Facility:?[facility] Patient ID:?[id number] Site Patient ID:?[id number]. Site :?1965 Study:?XRay Extremity Left Ankle 3 views-03/30/2023 4:56:11 PM Ordering Physician:?Brittany Lott Final Report: Indication: Left ankle pain Technique: Left ankle 3 views Comparison: None Findings: Bones: Alignment is normal. No fractures or bone lesions. Joint spaces: Joint spaces are well maintained. No degenerative changes. Soft tissues: Mild soft tissue swelling. Impression: Mild soft tissue swelling without evidence of fracture. Dictated by Dion Govea MD @ 03/30/2023 5:30:23 PM XR left foot: Attestation: I have reviewed the pertinent imaging results. Radiologist's impression: Patient: JULIANA ROXBORO Facility:?[facility] Patient ID:?[id number] Site Patient ID:?[id number]. Site :?1965 Study:?XRay Knee Right 3 views-03/30/2023 5:01:01 PM Ordering Physician:Irene Lott Final Report: INDICATION: Pain. TECHNIQUE: Right knee 3 views. COMPARISON: Right knee radiographs 11/21/2017. FINDINGS: No acute fracture or dislocation. Severe narrowing of the patellofemoral joint space with subchondral sclerosis. Tricompartmental spurring. Small knee joint effusion. Soft tissues are unremarkable. IMPRESSION: 1. Degenerative changes of the knee greatest in the patellofemoral compartment. 2. Small knee joint effusion. Dictated by Shalonda Anaya MD @ 03/30/2023 5:34:44 PM (Electronic Signature) Discharge Plan Discharge Clinical Impression: Acute pain of right knee Fall Qualifiers: Encounter type: initial encounter Qualified Code(s): W19.XXXA - Unspecified fall, initial encounter Left ankle sprain Qualifiers: Encounter type: initial encounter Involved ligament of ankle: unspecified ligament Qualified Code(s): S93.402A - Sprain of unspecified ligament of left ankle, initial encounter Patient Disposition: Home, Self-Care Condition: Stable Instructions: Ankle Sprain (ED), Knee Pain (ED) Additional Instructions: Ice, elevate, Tylenol per bottle directions for pain. Use immobilizer on knee and ankle, can wean out of the ankle as able but wear the knee until further advised by orthopedics. Use crutches as needed for weight bearing. Call orthopedic office at [phone] tomorrow morning to get scheduled for re- evaluation. Activity Level: Activity as Tolerated Prescriptions: No Action levalbuterol tartrate 45 mcg/actuation HFA aerosol inhaler 1 inh inhalation Q4H PRN multivitamin Tablet 1 tab PO DAILY fexofenadine [Maria Elena Allergy] 180 mg tablet 180 mg PO DAILY calcium-magnesium 300-300 mg tablet 1 tab PO DAILY Rx Instructions: administer with a meal Qmt-I-Unsgjtj Forte 50 mcg/drop (2, 000 unit/drop) drops 50 mcg PO DAILY Fish Oil 1,600-500-800 mg/5 mL liquid 5 ml PO DAILY Creon 24,000-76,000 -120,000 unit capsule,delayed release(DR/EC) 1 cap PO TIDWM PRN tacrolimus 0.03 % ointment 1 applic topical BID PRN levothyroxine 112 mcg tablet 112 mcg PO DAILY alendronate 70 mg tablet 70 mg PO Q7D Patient Comments: TAKE 1 TABLET BY MOUTH ONCE WEEKLY ON AN EMPTY STOMACH WITH A BIG GLASS OF WATER. DO NOT LIE DOWN FOR 60 MINUTES AFTERWARDS. Rx Instructions: Takes on Tuesday Follow Up/Referrals: Lefty Gomez MD [Primary Care Provider] - Stand Alone Forms: POINT [employer] Info Instructions
--- NOTE | 2023-03-30 17:07 | CRLHL7_ITS ---
For Patients: As a result of the Cures Act, medical imaging exams and procedure reports are released immediately into your electronic medical record. You may view this report before your referring provider. If you have questions, please contact your health care provider. INDICATION: Fall, injury. TECHNIQUE: Left foot 3 views. COMPARISON: None. FINDINGS: No acute fracture or dislocation. Joint spaces are preserved. Plantar calcaneal spur. Probable bone island in the talus. Soft tissues are unremarkable. IMPRESSION: No acute findings. Dictated by Shalonda Anaya MD @ 03/30/2023 5:55:55 PM (Electronically Signed)
== END 2023-03-30 18:50 | disposition home or self-care (01) ==
PROVIDERS: Emergency Provider Family Medicine; PCP Family Medicine
DX: S93.402A Sprain of unspecified ligament of left ankle, initial encounter (principal); M25.561 Pain in right knee; W10.9XXA Fall (on) (from) unspecified stairs and steps, initial encounter
CPT/HCPCS: 73562; 73610; 73630; 99283; 99284; 99285

== ENCOUNTER 2023-06-01 12:00 | Outpatient (RCR) | payer OTHER, SELFPAY | END 2023-06-01 13:18 | disposition home or self-care (01) | PROVIDERS: PCP Family Medicine; Visit Provider Physician Assistant | DX: M25.561 Pain in right knee (principal); S93.402A Sprain of unspecified ligament of left ankle, initial encounter; M25.572 Pain in left ankle and joints of left foot; Z51.89 Encounter for other specified aftercare | CPT/HCPCS: 97110; 97112; 97161; 97162 ==

== ENCOUNTER 2023-07-04 06:25 | Outpatient (CLI) | payer OTHER, SELFPAY ==
--- NOTE | 2023-07-04 07:50 | W.ANESCHARGE ---
Anesthesia Charges Start Date/Time Anesthesia Start Date: 07/04/23 Anesthesia Start Time: 07:19 Stop Date/Time Anesthesia Stop Date: 07/04/23 Anesthesia Stop Time: 07:45
--- NOTE | 2023-07-04 08:34 | W.ANESCHARGE ---
Anesthesia Charges Start Date/Time Anesthesia Start Date: 07/04/23 Anesthesia Start Time: 07:19 Stop Date/Time Anesthesia Stop Date: 07/04/23 Anesthesia Stop Time: 07:45
== END 2023-07-04 06:26 | disposition home or self-care (01) ==
LOC: OP CLINIC 06:26
PROVIDERS: PCP Family Medicine; Visit Provider Internal Medicine Gastroenterology
DX: Z12.11 Encounter for screening for malignant neoplasm of colon (principal); K63.5 Polyp of colon; Z86.010 Personal history of colon polyps
CPT/HCPCS: 00811; 45380; 45385; 88305; J2704

== ENCOUNTER 2023-08-18 08:04 | Outpatient (CLI) | payer OTHER, SELFPAY ==
--- OUTSIDE RECORDS SUMMARY | 2023-08-19 16:01 | XMS_ITS | Encounter Summary ---
Author Name Unknown Organization [facility] Address [address] [place] [address]. [place] [address] Care Team Providers Care Surtass Analyst Name Role Phone Lefty Gomez Primary Care Provider [phone] Cesar Ochoa MD Unavailable [phone] Zuleyka Andersen RN Unavailable Unavailable Sergio Stafford MD Unavailable [phone] Reason for Visit * Reason Comments Clinic Care Coordination - Follow-up Encounter Details Date Type Department Care Team (Latest Contact Info) Description 06/22/2023 Care Coordination [facility] [address] [place] [phone] Jennifer Wynne, SUZANNE Clinic Care Coordination - [...] on filedocumented in this encounter Care Teams Surtass Analyst Relationship Specialty Start Date End Date Lefty Gomez [address] [place] [address] PCP - General Family Medicine 04/11/22 Cesar Ochoa MD [address] [facility] [address] [place] [address] Gastroenterology 05/04/22 Zuleyka Andersen, RN Registered Nurse 05/04/22 Sergio Stafford MD [address] [facility] [address] [place] [address] Assigned Gastroenterology Provider 05/29/22 documented as of this encounter
--- OUTSIDE RECORDS SUMMARY | 2023-08-19 16:01 | XMS_ITS | Encounter Summary ---
Author Name Unknown Organization [facility] Address [address] [place] [address]. [place] [address] Care Team Providers Care Duck Bill Operator Name Role Phone Lefty Gomez Primary Care Provider [phone] Cesar Ochoa MD Unavailable Zuleyka Andersen RN Unavailable Unavailable Sergio Stafford MD Unavailable [phone] Encounter Details Date Type Department Care Team (Late st Contact Info) Description 05/03/2022 External Order Results [facility] [address] [place] [address] Outside, Provider Social History Tobacco Use Types [...] Coronavirus/COVID-19? No / Unsure 05/06/2022 5:26 AM ELECTROLYSIS INVESTIGATOR documented as of this encounter Plan of Treatment Not on file documented as of this encounter Procedures Procedure Name Priority Date/Time Associated Diagnosis Comments CBC WITH PLATELETS & DIFFERENTIAL Routine 05/03/2022 6:49 AM ELECTROLYSIS INVESTIGATOR LIPASE Routine 05/03/2022 6:49 AM ELECTROLYSIS INVESTIGATOR HEMOGLOBIN A1C Routine 05/03/2022 6:49 AM ELECTROLYSIS INVESTIGATOR BASIC METABOLIC PANEL Routine 05/03/2022 6:49 AM ELECTROLYSIS INVESTIGATOR CBC WITH PLATELETS & DIFFERENTIAL Routine 05/02/2022 6:50 PM ELECTROLYSIS INVESTIGATOR COVID-19 VIRUS (CORONAVIRUS) BY PCR (EXTERNAL RESULT) Routine 05/02/2022 5:30 PM ELECTROLYSIS INVESTIGATOR TRIGLYCERIDES Routine 05/02/2022 6:49 AM ELECTROLYSIS INVESTIGATOR COMPREHENSIVE METABOLIC PANEL Routine 05/02/2022 6:49 AM ELECTROLYSIS INVESTIGATOR LIPASE Routine 05/02/2022 1:50 AM ELECTROLYSIS INVESTIGATOR documented in this encounter Results * (ABNORMAL) Basic metabolic panel (05/03/2022 6:49 AM ELECTROLYSIS INVESTIGATOR) Sodium (External) 141 135 - 149 mmol/L [...] BLOOD SPECIMEN / Unknown 05/03/2022 6:49 AM ELECTROLYSIS INVESTIGATOR Narrative RANULFO TERRY - 05/04/2022 11:13 AM ELECTROLYSIS INVESTIGATOR Verified by Ellis Orosco on 05/04/2022. Provider Outside LAB - BLOOD ORDERABL ES RANULFO TERRY NON-INTERFACED (ONBASE SCANS) * (ABNORMAL) Lipase (05/03/2022 6:49 AM ELECTROLYSIS INVESTIGATOR) Lipase Level (External) 4,790(H) 23 - 300 BREEZE PFT Blood BLOOD SPECIMEN / Unknown 05/03/2022 6:49 AM ELECTROLYSIS INVESTIGATOR Narrative RANULFO PFT - 05/04/2022 11:13 AM ELECTROLYSIS INVESTIGATOR Verified by Ellis Orosco on 05/04/2022. Provider Outside LAB - BLOOD ORDERABL ES RANULFO PFT * (ABNORMAL) CBC with Platelets & Differential (05/03/2022 6:49 AM ELECTROLYSIS INVESTIGATOR) WBC Count (External) 7.19 4.50 - 11.0 [...] BLOOD SPECIMEN / Unknown 05/03/2022 6:49 AM ELECTROLYSIS INVESTIGATOR Narrative BREEZE PFT - 05/04/2022 11:13 AM ELECTROLYSIS INVESTIGATOR Verified by Ellis Orosco on 05/04/2022. Provider Outside LAB - BLOOD ORDERABL ES Performing Organization Address [facility] Co de Phone Number YARELIEZE PFT NON-INTERFACED (ONBASE SCANS) * (ABNORMAL) Hemoglobin A1c (05/03/2022 6:49 AM ELECTROLYSIS INVESTIGATOR) Hemoglobin A1C (External) 6.01(H) 0 - 5.6 % NON-INTERFACE D (ONBASE SCANS) Blood BLOOD SPECIMEN / Unknown 05/03/2022 6:49 AM ELECTROLYSIS INVESTIGATOR Narrative YARELIEZE PFT - 05/04/2022 11:13 AM ELECTROLYSIS INVESTIGATOR Verified by Ellis Orosco on 05/04/2022. Provider Outside LAB - BLOOD ORDERABL YARELIEZE PFT NON-INTERFACED (ONBASE SCANS) * (ABNORMAL) CBC with Platelets & Differential (05/02/2022 6:50 PM ELECTROLYSIS INVESTIGATOR) WBC Count (External) 5.66 4.50 - 11.0 [...] BLOOD SPECIMEN / Unknown 05/02/2022 6:50 PM ELECTROLYSIS INVESTIGATOR Narrative RANULFO TERRY - 05/04/2022 11:13 AM ELECTROLYSIS INVESTIGATOR Verified by Ellis Orosco on 05/04/2022. Provider Outside LAB - BLOOD ORDERABL ES BREEZE PFT NON-INTERFACED (ONBASE SCANS) * COVID-19 Virus (Coronavirus) by PCR (External Result) (05/02/2022 5:30 PM ELECTROLYSIS INVESTIGATOR) Pathologist [facility] COVID-19 Virus by PCR (External Result) Negative Negative NON-INTERFACE D (ONBASE SCANS) 05/02/2022 5:30 PM ELECTROLYSIS INVESTIGATOR Narrative RANULFO PFT - 05/07/2022 10:42 AM ELECTROLYSIS INVESTIGATOR Verified by Ellis Orosco on 05/04/2022. Provider Outside LABORATORY RANULFO PFT NON-INTERFACED (ONBASE SCANS) * (ABNORMAL) Comprehensive metabolic panel (05/02/2022 6:49 AM ELECTROLYSIS INVESTIGATOR) Pathologist [facility] Sodium (External) 139 135 - 149 mmol/L [...] BLOOD SPECIMEN / Unknown 05/02/2022 6:49 AM ELECTROLYSIS INVESTIGATOR Narrative BREEZE PFT - 05/04/2022 11:13 AM ELECTROLYSIS INVESTIGATOR Verified by Ellis Orosco on 05/04/2022. Provider Outside LAB - BLOOD ORDERABL ES BREEZE PFT NON-INTERFACED (ONBASE SCANS) * (ABNORMAL) Triglycerides (05/02/2022 6:49 AM ELECTROLYSIS INVESTIGATOR) Triglycerides (External) 236(H) 40 - 149 mg/dL NON-INTERFACE D (ONBASE SCANS) Blood BLOOD SPECIMEN / Unknown 05/02/2022 6:49 AM ELECTROLYSIS INVESTIGATOR Narrative BREEZE PFT - 05/04/2022 11:13 AM ELECTROLYSIS INVESTIGATOR Verified by Ellis Orosco on 05/04/2022. Provider Outside LAB - BLOOD ORDERABL ES BREEZE PFT NON-INTERFACED (ONBASE SCANS) * (ABNORMAL) Lipase (05/02/2022 1:50 AM ELECTROLYSIS INVESTIGATOR) Lipase Level (External) 7,608(H) 23 - 300 BREEZE PFT Blood BLOOD SPECIMEN / Unknown 05/02/2022 1:50 AM ELECTROLYSIS INVESTIGATOR Narrative BREEZE PFT - 05/04/2022 11:13 AM ELECTROLYSIS INVESTIGATOR Verified by Ellis Orosco on 05/04/2022. Provider Outside LAB - BLOOD ORDERABL ES BREEZE PFT documented in this encounter Visit Diagnoses Not on filedocumented in this encounter Care Teams Duck Bill Operator Relationship Specialty Start Date End Date Lefty Gomez [address] [place] [address] PCP - General Family Medicine 04/11/22 Cesar Ochoa MD [address] [facility] [address] [place], [place] [id number] Gastroenterology 05/04/22 Zuleyka Andersen, RN Registered Nurse 05/04/22 Sergio Stafford MD [address] [facility] [address] [place], [place] [id number] Assigned Gastroenterology Provider 05/29/22 documented as of this encounter
--- OUTSIDE RECORDS SUMMARY | 2023-08-19 16:01 | XMS_ITS | Clinical Summary ---
Author Name Unknown Organization [facility] Address [address] [place] [address] Care Team Providers Care Librarian School Name Role Phone Lefty Gomez Primary Care Provider [phone] Cesar Ochoa MD Unavailable [phone] Zuleyka Andersen RN Unavailable Unavailable Sergio Stafford MD Unavailable [phone] Allergies Active Allergy Reactions Criticality Noted Date Comments Levofloxacin Rash Low 12/20/2007 Morphine 05/04/2022 N/V Medications Medication Sig Dispensed Refills Start Date End Date Status levothyroxine (SYNTHROID/LEVOTHROI D) 112 MCG tablet Take 112 mcg by mouth daily Active ondansetron (ZOFRAN ODT) 4 MG ODT tab Q8H 05/05/2022 Active [place]-3 Fatty Acids (FISH OIL) 435 MG CAPS [...] TIME REPEAT NEEDED FOR FLARES. 02/19/2022 Active zcygwm-sjwixbrd-xrdq ase (CREON) [id number] units CPEP per EC capsuleIndications:I diopathic acute pancreatitis without infection or necrosis Take 1-2 with meals as needed 100 capsule 4 03/02/2023 Active Active Problems Problem Noted Date Diagnosed Date Acute pancreatitis, unspecif ied complication status, unspecified pancreatitis type 04/11/2022 Acquired hypothyroidism 09/30/2015 Encounters Date Type Department Care Team Description 06/22/2023 MyC Medical Advice [facility] [address] [address] Jennifer Wynne RN 06/22/2023 MyC Medical Advice [facility] [address] [address] Sergio Stafford MD 06/22/2023 Documentation Only [facility] Gastroenterology [facility] [address] [address] Bernice Shirley Fax Therapy Plan 06/22/2023 Care Coordination [facility] [address] [address] Jennifer Wynne RN Clinic Care Coordination - Follow-up 06/22/2023 Telephone [facility] [address] [address] Sergio Stafford MD Orders (Orders for infusion) [...] 86.2 kg (190 lb) 02/28/2023 1:13 PM MATERIAL YARD CLERK Height 180.3 cm (5' 11) 02/28/2023 1:13 PM MATERIAL YARD CLERK Body Mass Index 26.5 02/28/2023 1:13 PM MATERIAL YARD CLERK Plan of Treatment Health Maintenance Due Date [...] this topic Medical Devices Explanted Type Area Roll Machine Operator Device Identifier Shelf Expiration Date Model / Serial / Lot Stent Stafford Pancrea Flex [id number] Str - [id number] Implanted:Qty: 1 on 06/10/2022 by Sergio Stafford MD at [facility] Explanted:Qty: 1 on 06/24/2022 by Sergio Stafford MD at [facility] Stent N/A: Pancreatic Duct TED [id number] 04/11/2061 [id number] / / [id number] Stent Rivera Pancrea Flex [id number] Sgl Pigtail - [id number] Implanted:Qty: 1 on 06/10/2022 by Sergio Stafford MD at [facility] Explanted:Qty: 1 on 06/24/2022 at [facility] Stent N/A: Bile Duct TED [id number] 04/11/2071 6554 / / [id number] Description:Stent not seen o n x-rays per Dr. Stafford Procedures Procedure Name Priority Date/Time Associated Diagnosis Comments MA SCREENING BILATERAL W/ HERBERTH Routine 01/24/2023 7:20 AM CDT COMPREHENSIVE METABOLIC PANEL STAT 06/10/2022 1:46 PM MATERIAL YARD CLERK LIPID PROFILE Routine 04/12/2022 9:47 AM MATERIAL YARD CLERK from Last 3 Months or Most Recently Relevant to Health Maintenance Results * (ABNORMAL) Comprehensive metabolic panel (06/10/2022 1:46 PM MATERIAL YARD CLERK) Sodium 137 136 - 145 mmol/L 06/10/2022 2:23 PM MATERIAL YARD CLERK [facility] Potassium 3.6 3.4 - 5.3 mmol/L 06/10/2022 2:23 PM MATERIAL YARD CLERK [facility] Chloride 102 98 - 107 mmol/L 06/10/2022 2:23 PM MATERIAL YARD CLERK [facility] Carbon Dioxide (CO2) 23 22 - 29 mmol/L 06/10/2022 2:23 PM MATERIAL YARD CLERK [facility] Anion Gap 12 7 - 15 mmol/L 06/10/2022 2:23 PM MATERIAL YARD CLERK [facility] Urea Nitrogen 9.5 6.0 - 20.0 mg/dL 06/10/2022 2:23 PM MATERIAL YARD CLERK [facility] Creatinine 0.72 0.51 - 0.95 mg/dL 06/10/2022 2:23 PM MATERIAL YARD CLERK [facility] Calcium 9.1 8.6 - 10.0 mg/dL 06/10/2022 2:23 PM MATERIAL YARD CLERK [facility] Glucose 104(H) 70 - 99 mg/dL 06/10/2022 2:23 PM MATERIAL YARD CLERK [facility] Alkaline Phosphatase 90 35 - 104 U/L 06/10/2022 2:23 PM MATERIAL YARD CLERK [facility] AST 24 10 - 35 U/L 06/10/2022 2:23 PM MATERIAL YARD CLERK [facility] ALT 16 10 - 35 U/L 06/10/2022 2:23 PM MATERIAL YARD CLERK [facility] Protein Total 7.0 6.4 - 8.3 g/dL 06/10/2022 2:23 PM MATERIAL YARD CLERK [facility] Albumin 4.2 3.5 - 5.2 g/dL 06/10/2022 2:23 PM MATERIAL YARD CLERK [facility] Bilirubin Total 0.6 <=1.2 mg/dL 06/10/2022 2:23 PM MATERIAL YARD CLERK [facility] GFR Estimate >90 >60 mL/min/1.7 3m2 06/10/2022 2:23 PM MATERIAL YARD CLERK [facility] Comment:eGFR calculated usin g 2020 CKD-EPI equation. Blood STRUCTURE OF RIGHT UPPER LIMB / Unknown Venipuncture / Unknown 06/10/2022 1:46 PM MATERIAL YARD CLERK 06/10/2022 1:50 PM MATERIAL YARD CLERK Boris Wood MD LAB - BLOOD ORDERABL ES [facility] Core Lab [address] [facility], [address] [place] [address], [facility] [phone] * Lipid Profile (04/12/2022 9:47 AM MATERIAL YARD CLERK) Pathologist [facility] Cholesterol 152 <200 mg/dL 04/12/2022 10:46 AM MATERIAL YARD CLERK [facility] Triglycerides 88 <150 mg/dL 04/12/2022 10:46 AM MATERIAL YARD CLERK [facility] Direct Measure HDL 53 >=50 mg/dL 2022 10:46 AM MATERIAL YARD CLERK [facility] LDL Cholesterol Calculated 81 <=100 mg/dL 04/12/2022 10:46 AM MATERIAL YARD CLERK [facility] Non HDL Cholesterol 99 <130 mg/dL 04/12/2022 10:46 AM MATERIAL YARD CLERK [facility] Blood STRUCTURE OF LEFT UPPER LIMB / Unknown Venipuncture / Unknown 04/12/2022 9:47 AM MATERIAL YARD CLERK 04/12/2022 10:22 AM MATERIAL YARD CLERK Narrative [facility] - 04/12/2022 10:46 AM MATERIAL YARD CLERK Cholesterol Desirable: ??<200 mg/dL Triglycerides Normal: ??Less [...] equal to 220 mg/dL Yen Sanabria APRN CHEMISTRY MANAGER LAB - BL OOD ORDERABLES [facility] [place] [facility] Lab [address], [address] [place] [address], [facility] [phone] from Last 3 Months or Most Recently Relevant to Health Maintenance Advance Directives For more information, please contact: [phone] * Full Code (Latest Code Status on File) Date Activated Date Inactivated Comments 04/11/2022 4:25 PM 04/13/2022 3:39 PM All basic and advanced life-sustaining interventions are performed as appropriate Question Answer Comments Code status determined by: Discussion with abdulaziz nt/ legal decision maker Care Teams Librarian School Relationship Specialty Start Date End Date Lefty Gomez [address] [place] [address] PCP - General Family Medicine 04/11/22 Cesar Ochoa MD 500 [facility] [address] [place], [place] [address] Gastroenterology 05/04/22 Zuleyka Andersen, RN Registered Nurse 05/04/22 Sergio Stafford MD [address] [place] [address] [address] [place], [place] [address] Assigned Gastroenterology Provider 05/29/22
--- OUTSIDE RECORDS SUMMARY | 2023-08-19 16:01 | XMS_ITS | Encounter Summary ---
Author Name Unknown Organization [facility] Address [address] [place] [address]. [place] [address] Care Team Providers Care Tint Layer Name Role Phone Lefty Gomez Primary Care Provider [phone] Cesar Ochoa MD Unavailable [phone] Zuleyka Andersen RN Unavailable Unavailable Sergio Stafford MD Unavailable [phone] Encounter Details Date Type Department Care Team ([facility] st Contact Info) Description 04/26/2022 [facility] Medical Advice [address] 5th [place] [address] Joana Ware RN Social History [...] Coronavirus/COVID-19? No / Unsure 04/11/2022 1:42 PM PLASTIC AND RECONSTRUCTIVE SURGEON documented as of this encounter Plan of Treatment Not on file documented as of this encounter Visit Diagnoses Not on filedocumented in this encounter Care Teams Tint Layer Relationship Specialty Start Date End Date Lefty Gomez [address] [place] [address] PCP - General Family Medicine 04/11/22 Cesar Ochoa MD 500 [facility] [address] [place] [address] Gastroenterology 05/04/22 Zuleyka Andersen, RN Registered Nurse 05/04/22 Sergio Stafford MD 515 [facility] [address] [place], [place] [address] Assigned Gastroenterology Provider 05/29/22 documented as of this encounter
--- OUTSIDE RECORDS SUMMARY | 2023-08-19 16:01 | XMS_ITS | Encounter Summary ---
Author Name Unknown Organization [facility] Address [address] [place] [address]. [place] [address] Care Team Providers Care Product Manager Name Role Phone Lefty Gomez Primary Care Provider [phone] Cesar Ochoa MD Unavailable [phone] Zuleyka Andersen RN Unavailable Unavailable Sergio Stafford MD Unavailable Reason for Visit * Reason Onset Date Comments Orders 06/22/2023 Orders for infus ion Encounter Details Date Type Department Care Team (Late st Contact Info) Description 06/22/2023 Telephone [facility] Pan[facility] Biliary Clinic [address] 4th [place] [address] Sergio Stafford MD 515 [facility] [address] [place], [place] [address] Orders (Orders for infusion) Social History Tobacco [...] patient to discuss need for local infusions, [facility] not comfortable scheduling patient today. Per patient she's going to tough it out at home. Says provider who can authorize infusions at [facility] will be back nextt week. Agreed I will send [facility] SAhart message with [facility] infusion option in case she needs them. ML * Telephone Encounter - Elizabeth Childs - 06/22/2023 10:48 AM CDT [facility] Call Center Phone Message May [...] Thank you! Action Taken: Message routed to: [facility] ([facility]): Daja Travel Screening: Not Applicable * Telephone Encounter - Jennifer Wynne RN - 06/22/2023 8:36 AM CDT Will fax therapy plan as requested : Fax order to: [phone]. Jennifer Wynne, RN Hall Worker * Telephone Encounter - Maria De Jesus Lomeli - 06/22/2023 8:18 AM CDT [facility] Phone Message May a detailed message be left on voicemail: yes Reason for Call: Other: [facility] called as patient called them to come in for infusion - she is having a pancreatic attack. [facility] needs to have orders as to what infusion medication she is to receive. See chart note of 03/02/24. Fax order to: [phone]. Action Taken: Message routed to: [facility] ([facility]): Duarte Call Team Travel Screening: Not Applicable documented in this encounter Plan of Treatment Not on file documented as of this encounter Visit Diagnoses Not on filedocumented in this encounter Care Teams Product Manager Relationship Specialty Start Date End Date Lefty Gomez [address] [place] [address] PCP - General Family Medicine 04/11/22 Cesar Ochoa MD 500 [facility] [address] [place], [place] [address] Gastroenterology 05/04/22 Zuleyka Andersen, RN Registered Nurse 05/04/22 Sergio Stafford MD 515 [facility] [address] [place], [place] [address] Assigned Gastroenterology Provider 05/29/22 documented as of this encounter
--- OUTSIDE RECORDS SUMMARY | 2023-08-19 16:01 | XMS_ITS | Encounter Summary ---
Author Name Unknown Organization [facility] Address [address] [place] [address]. [place] [address] Care Team Providers Care Recreation Officer Name Role Phone Lefty Gomez Primary Care Provider [phone] Cesar Ochoa MD Unavailable Zuleyka Andersen RN Unavailable Unavailable Sergio Stafford MD Unavailable Reason for Visit * Reason Onset Date Comments Appointment 05/19/202205/19 appt Encounter Details Date Type Department Care Team (Late st Contact Info) Description 05/19/2022 Telephone [facility] Biliary Clinic [address] 4th [place] [address] Sergio Stafford MD [address] [facility] [address] [place], [place] [address] Appointment (05/19 appt) Social History Tobacco Use [...] Coronavirus/COVID-19? No / Unsure 05/06/2022 5:26 AM VEHICLE MAINTENANCE TECHNICIAN documented as of this encounter Miscellaneous [...] Center ([facility]): [facility]-B[facility] Travel Screening: Not Applicable CLE MAINTENANCE TECHNICIAN documented in this encounter Plan of Treatment Not on file documented as of this encounter Visit Diagnoses Not on filedocumented in this encounter Care Teams Recreation Officer Relationship Specialty Start Date End Date Lefty Gomez [address] [place] [address] PCP - General Family Medicine 04/11/22 Cesar Ochoa MD 500 [facility] [address] [place], [place] [address] Gastroenterology 05/04/22 Zuleyka Andersen, RN Registered Nurse 05/04/22 Sergio Stafford MD [address] [facility] [address] [place], [place] [address] Assigned Gastroenterology Provider 05/29/22 documented as of this encounter
--- OUTSIDE RECORDS SUMMARY | 2023-08-19 16:01 | XMS_ITS | Encounter Summary ---
Author Name Unknown Organization [facility] Address [address] [place] [address]. [place] [address] Care Team Providers Care Stock House Worker Name Role Phone Lefty Gomez Primary Care Provider [phone] Cesar Ochoa MD Unavailable [phone] Zuleyka Andersen RN Unavailable Unavailable Sergio Stafford MD Unavailable [phone] Encounter Details Date Type Department Care Team (Late st Contact Info) Description 12/23/2022 [facility] [address] 4[address] [place] [address] Sergio Stafford MD [address] [place] [address] [address] [place], [place] [address] Social History Tobacco Use Types Packs/Day Years [...] on filedocumented in this encounter Care Teams Stock House Worker Relationship Specialty Start Date End Date Lefty Gomez [address] [place] [address] PCP - General Family Medicine 04/11/22 Cesar Ochoa MD 500 [facility] [address] [place] [address] Gastroenterology 05/04/22 Zuleyka Andersen, SUZANNE Registered Nurse 05/04/22 Sergio Stafford MD [address] [place] [address] [address] [place] [address] Assigned Gastroenterology Provider 05/29/22 documented as of this encounter
--- OUTSIDE RECORDS SUMMARY | 2023-08-19 16:01 | XMS_ITS | Encounter Summary ---
Author Name Unknown Organization [facility] Address [address] [place] [address]. [place] [address] Care Team Providers Care Drapery Hanger Name Role Phone Lefty Gomez Primary Care Provider Cesar Ochoa MD Unavailable [phone] Zuleyka Andersen RN Unavailable Unavailable Sergio Stafford MD Unavailable [phone] Encounter Details Date Type Department Care Team (Late st Contact Info) Description 08/23/2022 [facility] [place] [address] [place] [address] Jennifer Wynne, SUZANNE Social History [...] on filedocumented in this encounter Care Teams Drapery Hanger Relationship Specialty Start Date End Date Lefty Gomez [address] [place] [address] PCP - General Family Medicine 04/11/22 Cesar Ochoa MD 500 [facility] [address] [place] [address] Gastroenterology 05/04/22 Zuleyka Andersen, RN Registered Nurse 05/04/22 Sergio Stafford MD [address] [place] [address] Assigned Gastroenterology Provider 05/29/22 documented as of this encounter
--- OUTSIDE RECORDS SUMMARY | 2023-08-19 16:01 | XMS_ITS | Encounter Summary ---
Author Name Unknown Organization [facility] Address [address] [place] [address]. [place] [address] Care Team Providers Care Financial Compliance Examiner Name Role Phone Lefty Gomez Primary Care Provider [phone] Cesar Ochoa MD Unavailable [phone] Zuleyka Andersen RN Unavailable Unavailable Sergio Stafford MD Unavailable [phone] Encounter Details Date Type Department Care Team (Late st Contact Info) Description 06/15/2022 [facility] Medical Advice [facility] Biliary Clinic [address] 4th [place] [address] Jennifer Wynne, RN Social History [...] Coronavirus/COVID-19? No / Unsure 06/10/2022 12:16 PM INTEGRATION AIDE documented as of this encounter Plan of Treatment Not on file documented as of this encounter Visit Diagnoses Not on filedocumented in this encounter Care Teams Financial Compliance Examiner Relationship Specialty Start Date End Date Lefty Gomez [address] [place] [address] PCP - General Family Medicine 04/11/22 Cesar Ochoa MD 500 [facility] [address] [place] [address] Gastroenterology 05/04/22 Zuleyka Andersen, RN Registered Nurse 05/04/22 Sergio Stafford MD 515 [facility] [address] [place] [address] Assigned Gastroenterology Provider 05/29/22 documented as of this encounter
--- OUTSIDE RECORDS SUMMARY | 2023-08-19 16:01 | XMS_ITS | Referral Summary ---
Author Name Unknown Organization [facility] Address [address] [place] [address]. [place] [address] Care Team Providers Care Ancillary Services Manager Therapy Name Role Phone Lefty Gomez Primary Care Provider Cesar Ochoa MD Unavailable Zuleyka Andersen RN Unavailable Unavailable Sergio Stafford MD Unavailable [phone] Encounters Date Type Department Care Team Description 06/22/2023 MyC Medical Advice [facility] Pancreas and Biliary [address] [id number] Jennifer Wynne RN 06/22/2023 MyC Medical Advice [facility] [address] [address] Sergio Stafford MD 06/22/2023 Documentation Only [facility] Gastroenterology Clinic [address] [address] Bernice Shirley Fax Therapy Plan 06/22/2023 Care Coordination [facility] Biliary [address] [address] Jennifer Wynne, RN Clinic Care Coordination - Follow-up 06/22/2023 Telephone [facility] Biliary [address] [address] Sergio Stafford MD Orders (Orders for infusion) from Last 3 Months Allergies Active Allergy Reactions Criticality Noted Date Comments Levofloxacin Rash Low 12/20/2007 Morphine 05/04/2022 N/V Medications Medication Sig Dispensed Refills Start Date End Date Status levothyroxine (SYNTHROID/LEVOTHROI D) 112 MCG tablet Take 112 mcg by mouth daily Active ondansetron (ZOFRAN ODT) 4 MG ODT tab Q8H 05/05/2022 Active [place]-3 Fatty Acids (FISH OIL) 435 MG CAPS [...] TIME REPEAT NEEDED FOR FLARES. 02/19/2022 Active cbbhrf-xtngzmvv-toai ase (CREON) [id number] units CPEP per EC capsuleIndications:I diopathic acute [...] 86.2 kg (190 lb) 02/28/2023 1:13 PM ELECTRON TUBE ASSEMBLER Height 180.3 cm (5' 11) 02/28/2023 1:13 PM ELECTRON TUBE ASSEMBLER Body Mass Index 26.5 02/28/2023 1:13 PM ELECTRON TUBE ASSEMBLER Plan of Treatment Not on file Medical Devices Explanted Type Area Consumer Attorney Device Identifier Shelf Expiration Date Model / Serial / Lot Stent Rivera Pancrea Flex [id number] Str - [id number] Implanted:Qty: 1 on 06/10/2022 by Sergio Stafford MD at [facility] Explanted:Qty: 1 on 06/24/2022 by Sergio Stafford MD at [facility] Stent N/A: Pancreatic Duct TED [id number] 04/11/2061 6341 / / [id number] Stent Rivera Pancrea Flex [id number] Sgl Pigtail - [id number] Implanted:Qty: 1 on 06/10/2022 by Sergio Stafford MD at [facility] Explanted:Qty: 1 on 06/24/2022 at [facility] Stent N/A: Bile Duct TED [id number] 04/11/2071 6554 / / [id number] Description:Stent not seen o n x-rays per Dr. Stafford Procedures Procedure Name Priority Date/Time Associated Diagnosis Comments MA SCREENING BILATERAL W/ HERBERTH Routine 01/24/2023 7:20 AM CDT COMPREHENSIVE METABOLIC PANEL STAT 06/10/2022 1:46 PM ELECTRON TUBE ASSEMBLER LIPID PROFILE Routine 04/12/2022 9:47 AM ELECTRON TUBE ASSEMBLER from Last 3 Months or Most Recently Relevant to Health Maintenance Results * (ABNORMAL) Comprehensive metabolic panel (06/10/2022 1:46 PM ELECTRON TUBE ASSEMBLER) Sodium 137 136 - 145 mmol/L 06/10/2022 2:23 PM ELECTRON TUBE ASSEMBLER [facility] Potassium 3.6 3.4 - 5.3 mmol/L 06/10/2022 2:23 PM ELECTRON TUBE ASSEMBLER [facility] Chloride 102 98 - 107 mmol/L 06/10/2022 2:23 PM ELECTRON TUBE ASSEMBLER [facility] Carbon Dioxide (CO2) 23 22 - 29 mmol/L 06/10/2022 2:23 PM ELECTRON TUBE ASSEMBLER [facility] Anion Gap 12 7 - 15 mmol/L 06/10/2022 2:23 PM ELECTRON TUBE ASSEMBLER [facility] Urea Nitrogen 9.5 6.0 - 20.0 mg/dL 06/10/2022 2:23 PM ELECTRON TUBE ASSEMBLER [facility] Creatinine 0.72 0.51 - 0.95 mg/dL 06/10/2022 2:23 PM ELECTRON TUBE ASSEMBLER [facility] Calcium 9.1 8.6 - 10.0 mg/dL 06/10/2022 2:23 PM ELECTRON TUBE ASSEMBLER [facility] Glucose 104(H) 70 - 99 mg/dL 06/10/2022 2:23 PM ELECTRON TUBE ASSEMBLER [facility] Alkaline Phosphatase 90 35 - 104 U/L 06/10/2022 2:23 PM ELECTRON TUBE ASSEMBLER [facility] AST 24 10 - 35 U/L 06/10/2022 2:23 PM ELECTRON TUBE ASSEMBLER [facility] ALT 16 10 - 35 U/L 06/10/2022 2:23 PM ELECTRON TUBE ASSEMBLER [facility] Protein Total 7.0 6.4 - 8.3 g/dL 06/10/2022 2:23 PM ELECTRON TUBE ASSEMBLER [facility] Albumin 4.2 3.5 - 5.2 g/dL 06/10/2022 2:23 PM ELECTRON TUBE ASSEMBLER [facility] Bilirubin Total 0.6 <=1.2 mg/dL 06/10/2022 2:23 PM ELECTRON TUBE ASSEMBLER [facility] GFR Estimate >90 >60 mL/min/1.7 3m2 06/10/2022 2:23 PM ELECTRON TUBE ASSEMBLER [facility] Comment:eGFR calculated usin 2020 CKD-EPI equation. Blood STRUCTURE OF RIGHT UPPER LIMB / Unknown Venipuncture / Unknown 06/10/2022 1:46 PM ELECTRON TUBE ASSEMBLER 06/10/2022 1:50 PM ELECTRON TUBE ASSEMBLER Boris Wood MD LAB - BLOOD ORDERABL ES [facility] Core Lab 500 [facility], [address] [address], [facility] [phone] * Lipid Profile (04/12/2022 9:47 AM ELECTRON TUBE ASSEMBLER) Cholesterol 152 <200 mg/dL 04/12/2022 10:46 AM ELECTRON TUBE ASSEMBLER [facility] Triglycerides 88 <150 mg/dL 04/12/2022 10:46 AM ELECTRON TUBE ASSEMBLER [facility] Direct Measure HDL 53 >=50 mg/dL 2022 10:46 AM ELECTRON TUBE ASSEMBLER [facility] LDL Cholesterol Calculated 81 <=100 mg/dL 04/12/2022 10:46 AM ELECTRON TUBE ASSEMBLER [facility] Non HDL Cholesterol 99 <130 mg/dL 04/12/2022 10:46 AM ELECTRON TUBE ASSEMBLER [facility] Blood STRUCTURE OF LEFT UPPER LIMB / Unknown Venipuncture / Unknown 04/12/2022 9:47 AM ELECTRON TUBE ASSEMBLER 04/12/2022 10:22 AM ELECTRON TUBE ASSEMBLER Narrative [facility] - 04/12/2022 10:46 AM ELECTRON TUBE ASSEMBLER Cholesterol Desirable: ??<200 mg/dL Triglycerides Normal: ??Less [...] or equal to 220 mg/dL Yen Sanabria STORE RECEIVER INDUSTRIAL RELATIONS ANALYST LAB - BL OOD ORDERABLES [facility] Core Lab [address], [address] [place] [address], [facility] [phone] from Last 3 Months or Most Recently Relevant to Health Maintenance Advance Directives For more information, please contact: [phone] * Full Code (Latest Code Status on File) Date Activated Date Inactivated Comments 04/11/2022 4:25 PM 04/13/2022 3:39 PM All basic and advanced life-sustaining interventions are performed as appropriate Question Answer Comments Code status determined by: Discussion with valentinae nt/ legal decision maker Care Teams Ancillary Services Manager Therapy Relationship Specialty Start Date End Date Lefty Gomez [address] [place] [address] PCP - General Family Medicine 04/11/22 Cesar Ochoa MD [address] [place] [address] Gastroenterology 05/04/22 Zuleyka Andersen, RN Registered Nurse 05/04/22 Sergio Stafford MD [address] [place] [address] Assigned Gastroenterology Provider 05/29/22
--- OUTSIDE RECORDS SUMMARY | 2023-08-19 16:01 | XMS_ITS | Encounter Summary ---
Author Name Unknown Organization [facility] Address [address] [place] [address]. [place] [address] Care Team Providers Care Pediatric Audiologist Name Role Phone Lefty Gomez Primary Care Provider [phone] Cesar Ochoa MD Unavailable [phone] Zuleyka Andersen RN Unavailable Unavailable Sergio Stafford MD Unavailable [phone] Reason for Visit * Reason Onset Date Comments Fax Therapy Plan 06/22/2023 Encounter Details Date Type Department Care Team (Latest Contact Info) Description 06/22/[address] [facility] [address] 4[address] [place] [address] Bernice Shirley Fax Therapy Plan [...] Stafford to following contact. Fax order to: [phone]. Faxed on 06/21 at 10:00am. Bernice Shirley documented in this encounter Plan of Treatment Not on file documented as of this encounter Visit Diagnoses Not on filedocumented in this encounter Care Teams Pediatric Audiologist Relationship Specialty Start Date End Date Lefty Gomez [address] [place] [address] PCP - General Family Medicine 04/11/22 Cesar Ochoa MD [address] [facility] [address] [place], [place] [address] Gastroenterology 05/04/22 Zuleyka Andersen, SUZANNE Registered Nurse 05/04/22 Sergio Stafford MD 515 [facility] [address] [place], [place] [address] Assigned Gastroenterology Provider 05/29/22 documented as of this encounter
--- OUTSIDE RECORDS SUMMARY | 2023-08-19 16:01 | XMS_ITS | Encounter Summary ---
Author Name Unknown Organization [facility] Address [address] [place] [address]. [place] [address] Care Team Providers Care Pairer Name Role Phone Lefty Gomez Primary Care Provider Cesar Ochoa MD Unavailable [phone] Zuleyka Andersen RN Unavailable Unavailable Sergio Stafford MD Unavailable [phone] Encounter Details Date Type Department Care Team (Late st Contact Info) Description 03/02/2023 [facility] Medical Advice [facility] [address] 4th [place] [address] Jennifer Wynne, SUZANNE Social History [...] on filedocumented in this encounter Care Teams Pairer Relationship Specialty Start Date End Date Lefty Gomez [address] [place] [address] PCP - General Family Medicine 04/11/22 Cesar Ochoa MD 500 [facility] [address] [place], [place] [address] Gastroenterology 05/04/22 Zuleyka Andersen, RN Registered Nurse 05/04/22 Sergio Stafford MD [address] [place] [address] Assigned Gastroenterology Provider 05/29/22 documented as of this encounter
--- OUTSIDE RECORDS SUMMARY | 2023-08-19 16:01 | XMS_ITS | Encounter Summary ---
Author Name Unknown Organization [place] Address [address] [place] [address]. [place] [address] Care Team Providers Care Staff Genetic Counselor Name Role Phone Lefty Gomez Primary Care Provider Cesar Ochoa MD Unavailable [phone] Zuleyka Andersen RN Unavailable Unavailable Sergio Stafford MD Unavailable [phone] Encounter Details Date Type Department Care Team (Late st Contact Info) Description 06/22/2023 [facility] Medical Advice [facility] [address] 4th [place] [address] Jennifer Wynne, SUZANNE Social History [...] on filedocumented in this encounter Care Teams Staff Genetic Counselor Relationship Specialty Start Date End Date Lefty Gomez [address] [place] [address] PCP - General Family Medicine 04/11/22 Cesar Ochoa MD 500 [facility] [address] [place], [place] [address] Gastroenterology 05/04/22 Zuleyka Andersen, RN Registered Nurse 05/04/22 Sergio Stafford MD [address] [place] [address] Assigned Gastroenterology Provider 05/29/22 documented as of this encounter
--- OUTSIDE RECORDS SUMMARY | 2023-08-19 16:01 | XMS_ITS | Encounter Summary ---
Author Name Unknown Organization [facility] Address [address] [place] [address]. [place] [address] Care Team Providers Care Production Helper Name Role Phone Lefty Gomez Primary Care Provider Cesar Ochoa MD Unavailable [phone] Zuleyka Andersen RN Unavailable Unavailable Sergio Stafford MD Unavailable [phone] Encounter Details Date Type Department Care Team (Late st Contact Info) Description 06/22/2023 [facility] [address] 4th [place] [address] Sergio Stafford MD [address] [facility] [address] [place], [place] [address] Social History Tobacco Use Types Packs/Day Years [...] on filedocumented in this encounter Care Teams Production Helper Relationship Specialty Start Date End Date Lefty Gomez [address] [place] [address] PCP - General Family Medicine 04/11/22 Cesar Ochoa MD 500 [facility] [address] [place] [address] Gastroenterology 05/04/22 Zuleyka Andersen, RN Registered Nurse 05/04/22 Sergio Stafford MD [address] [facility] [address] [place] [address] Assigned Gastroenterology Provider 05/29/22 documented as of this encounter
--- OUTSIDE RECORDS SUMMARY | 2023-08-19 16:01 | XMS_ITS | Encounter Summary ---
Author Name Unknown Organization [place] Address [address] [place] [address]. [place] [address] Care Team Providers Care Immigration Investigator Name Role Phone Lefty Gomez Primary Care Provider Cesar Ochoa MD Unavailable [phone] Zuleyka Andersen RN Unavailable Unavailable Sergio Stafford MD Unavailable [phone] Encounter Details Date Type Department Care Team (Late st Contact Info) Description 11/19/2022 [facility] Medical Adv[facility] [address] 4th [place] [address] Sergio Stafford MD [address] [facility] [place], [place] [address] Social History Tobacco Use Types Packs/Day Years [...] on filedocumented in this encounter Care Teams Immigration Investigator Relationship Specialty Start Date End Date Lefty Gomez [address] [place] [address] PCP - General Family Medicine 04/11/22 Cesar Ochoa MD 500 [facility] [address] [place] [address] Gastroenterology 05/04/22 Zuleyka Andersen, RN Registered Nurse 05/04/22 Sergio Stafford MD 515 [facility] [address] [place], [place] [address] Assigned Gastroenterology Provider 05/29/22 documented as of this encounter
--- OUTSIDE RECORDS SUMMARY | 2023-08-19 16:01 | XMS_ITS | Encounter Summary ---
Author Name Unknown Organization [facility] Address [address] [place] [address]. [place] [address] Care Team Providers Care Land Planner Name Role Phone Lefty Gomez Primary Care Provider Cesar Ochoa MD Unavailable [phone] Zuleyka Andersen RN Unavailable Unavailable Sergio Stafford MD Unavailable [phone] Encounter Details Date Type Department Care Team ([facility] st Contact Info) Description 04/15/2022 [facility] Medical Advice [facility] [address] [place] [address] Glenis Bustamante Social History Tobacco Use [...] Coronavirus/COVID-19? No / Unsure 04/11/2022 1:42 PM GRANITE SETTER documented as of this encounter Plan of Treatment Not on file documented as of this encounter Visit Diagnoses Not on filedocumented in this encounter Care Teams Land Planner Relationship Specialty Start Date End Date Lefty Gomez [address] [place] [address] PCP - General Family Medicine 04/11/22 Cesar Ochoa MD 500 [facility] [address] [place], [place] [address] Gastroenterology 05/04/22 Zuleyka Andersen, RN Registered Nurse 05/04/22 Sergio Stafford MD [address] [place] [address] Assigned Gastroenterology Provider 05/29/22 documented as of this encounter
--- OUTSIDE RECORDS SUMMARY | 2023-08-19 16:02 | XMS_ITS | Clinical Summary ---
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 Meade) 06/13/2023 Travel from Last 3 Months Immunizations Name Administration Dates Next Due AMB Influenza, IIV4 PF (=>6 mos Flulaval,Fluzone Fluarix)(Flu Clinic Only) 01/25/2018,02/01/2017,02/25/2016 COVID-19 vaccine ([employer] 30mcg/0.3mL) PF, MDV 08/20/2020,07/30/2020 Hepatitis B (Adult) 11/24/2004,07/02/2004,2004 Influenza, IIV3 (Age >=3 years) 02/23/2008,03/12 Influenza, IIV4 02/03/2023,,01/09/2021, 020 Influenza, IIV4 (=>6mos) MDV 01/18/2019 Td (Age >=7 Years) 03/12/2003 Tdap 01/09/2021,07/13/2011 Zoster (Shingrix-RZV, recombinant) 06/05/2018, Family History Medical History Relation Name Comments Asthma Brother 1 Luis Armando Buysman Diabetes Brother 1 Luis Armando Buysman Diabetes Brother 2 Mitchell Buysman Obesity Brother 2 Mitchell Buysman Cancer-prostate Father Isaías Buyrickyan Diabetes Father Isaías Rocha Stroke Father Isaías Rocha Good Health Mother Jasmin Rocha Diabetes Paternal Grandmother Gisselle Rocha Anesthesia Problem No Family History Cancer-breast No Family History Cancer-colon No Family History Cancer-ovarian No Family History Heart attack No Family History Relation Name Status Comments Brother 1 Luis Armando Buysman Brother 2 [place] Buysman Father Isaías Buysman Alive Mother Jasmin [...] Assigned at Female 05/04/2021 8:26 PM CIVIL GEOTECHNICAL ENGINEER Gender Identity Female 05/04/2021 8:26 PM CIVIL GEOTECHNICAL ENGINEER Sexual Orientation Straight 05/04/2021 8: 26 PM CIVIL GEOTECHNICAL ENGINEER Obstetrics History Last Filed Vital Signs Vital Sign Reading Time Taken Comments Blood Pressure 112/72 06/13/2023 8:22 AM CIVIL GEOTECHNICAL ENGINEER Pulse 84 06/13/2023 8:22 AM CIVIL GEOTECHNICAL ENGINEER Temperature 36.6 ??C (97.9 ??F) 07/14/2020 2:48 PM CD T Respiratory Rate 16 02/07/2020 1:07 PM CDT Oxygen Saturation 95% 06/13/2023 8:22 AM CIVIL GEOTECHNICAL ENGINEER Inhaled Oxygen Concentration - - Weight 87.9 kg (193 lb 12.8 oz) 06/13/2023 8:22 AM CIVIL GEOTECHNICAL ENGINEER Height 180.6 cm (5' 11.1) 06/13/2023 8:22 AM CS T Body Mass Index 26.95 06/13/2023 8:22 AM CIVIL GEOTECHNICAL ENGINEER Plan of Treatment Health Maintenance Due Date [...] 7:20 AM CDT Visit for screening mammogram NON CDL DRIVER THIN PREP PAP SCREEN IMAGED Routine 01/04/2020 [...] CDT Sergio Meade MD LAB BILL ONLY [email or web address] [address] [place] [address], * PATH TISSUE EXAM (07/04/2023 7:30 AM CDT) Case Report Pathology Report ?Case: [id number] ? Authorizing Provider: ??Sergio Meade MD ?? Collected: ? 07/04/2023 0730 ? Ordering Location: ? [facility] ?Received: ?07/05/2023 0812 ? Pathologist: ? Riley Sigala, ? MD ? Specimen: ?Ascending Colon Biopsy ? 07/06/2023 12:37 PM CDT [facility] [employer] [facility] Final Diagnosis A) COLON, ASCENDING, POLYPECTOMIES: 1. Tubular adenomas (4) and sessile serrated adenoma (1) 2. Negative for high grade dysplasia 3. Per the colonoscopy report: ?? a. Polyp sizes: 2 mm - 4 mm ?? b. Resection: Complete ?? c. Retrieval: Complete 07/06/2023 12:37 PM T [facility] Clinical Information Ms. Mcallister is a 58 y.o. undergoing high risk colon cancer surveillance due to a personal history of adenoma less than 10 mm in size. Patient's last colonoscopy was February 2018. 07/06/2023 12:[address] [facility] Gross Description A) Received in formalin are 5 buitrago mucosal fragments averaging 2 mm in greatest dimension, which are entirely submitted in one cassette. It is labeled with the patient's name and designated ascending colon biopsy. Lenard Irby 07/05/2023 8:47 AM 07/06/2023 12:37 PM CDT [facility] Microscopic Description The final diagnosis is based on microscopic examination of appropriate sections of all specimens. 07/06/2023 12:37 PM T [facility] Additional Information Interpreted at [facility], Central Laboratory - [address] [facility] [address], [place] [address] 07/06/2023 12:37 PM T [facility] Other (Ascending Colon Biopsy) 07/04/2023 7:30 AM CDT 07/05/2023 8:12 AM CDT Sergio Meade MD PATHOLOGY/CYTOLOG Y Performing Organization Address [facility] Co de Phone Number [facility] [employer] [facility] [address] [place] [address], * COLONOSCOPY SCREENING (07/04/2023 12:00 AM CDT) Lefty Gomez MD GI PROCEDURE O RD * ANTI HIV 1/2 (02/03/2023 8:50 AM CDT) HIV-1/HIV-2 SCREEN Non-Reacti ve Non-Reacti ve 02/03/2023 5:28 PM CDT [facility] [employer] TRAL LABORATORY Comment:HIV-1 p24 and HIV-1/ HIV-2 Ab Not Detected. Blood BLOOD SPECIMEN / Unknown Venipuncture / Unknown 02/03/2023 8:50 AM CDT 02/03/2023 8:50 AM CDT Lefty Gomez MD SEND OUTS Performing Organization Address [facility] de Phone Number [facility] [address] [place] [address], * XR MAMMO HERBERTH BILAT SCREEN (01/24/2023 [...] care provider. XR MAMMO HERBERTH BILAT SCREEN [[id number]] CLINICAL HISTORY: ??This is an asymptomatic 57 y.o. patient. INDICATION FOR EXAM: Mammogram Screening. TECHNIQUE: CC & MLO views were obtained. ??This study was evaluated with the assistance of Computer-Aided Detection. Breast Tomosynthesis was used in interpretation. COMPARISON FILM: Yes 01/15/22 [facility]20 [facility] FINDINGS: ??The breasts are heterogeneously dense, which may obscure small masses. There are no dominant masses, suspicious micro calcifications or areas of architectural distortion. Lefty Gomez MD MAMMO * NON CDL DRIVER THIN PREP PAP SCREEN IMAGED (01/04/2020 8:30 AM CDT) Case Report Gynecologic Cytology Report ? Case: [id number] ? Authorizing Provider: ??Lefty Gomez, ?? Collected: ? 01/04/2020 0830 ? MD ? [facility] ?? Received: ?01/04/2020 0920 ? Clinic ? First Screen: ?[place] ? Specimen: ?NON CDL DRIVER ThinPrep Vial Screening, Cervical ? 01/15/2020 8:42 AM CDT [facility] [employer] [facility] ENTRAL LABORATORY INTERPRETATION/ RESULT NEGATIVE FOR INTRAEPITHELIAL LESION OR MALIGNANCY (NIL) (none) 01/15/2020 8:42 AM CDT [facility] ENTRAL LABORATORY IMEN ADEQUACY Satisfactory for evaluation Endocervical component present 01/15/2020 8:42 AM CDT [facility] [employer] LABORATORY ENTRAL LABORATORY HPV REQUEST HPV and PAP 01/15/2020 8:42 AM CDT [facility] [employer] LABORATORY- ENTRAL LABORATORY Date of LMP 05/04/2010 01/15/2020 8:42 AM CDT [facility] [employer] [facility] EN[facility]AL [facility] Last Pap Date 11/05/16 01/15/2020 8:42 AM CDT [facility] LABORATORY-C ENTRAL LABORATORY Last Pap Result NIL 0 8:42 AM CDT [facility] [employer] LABORATORY ENTRAL LABORATORY Abnormal Pap or [place] Bx in last 5 years No 01/15/2020 8:42 AM CDT [facility] [employer] LABORATORY-C ENTRAL LABORATORY Menstrual Status Postmenopausal 01/15/2020 8:42 AM CDT [facility] [employer] [facility] ENTRAL LABORATORY [place] Bx Done Today No 01/15/2020 8:42 AM CDT [facility] [employer] [facility] ENTRAL LABORATORY Additional Information None given 01/15/2020 8:42 AM CDT [facility] [employer] [facility] ENTRAL LABORATORY Comment: Cytology is screened at [facility] Fed[facility] Sample [facility], Central Laboratory - [address], [place] [address] and [facility] Laboratory - [address], [place] [address] and [facility] Laboratory - [address], [place] [address] [facility] Laboratory - [address], [place] [address] Automated Review Successful 01/15/2020 8:42 AM CDT [facility] ENTRMD LABORATORY Comment:Specimen processed s uccessfully by automated fashion consultant sales device, ThinPrep Imaging System, [employer] ANCILLARY TESTING NON CDL DRIVER HPV Ordered, Please see separate report 01/15/2020 8:42 AM CDT [facility] Note The pap test is a [...] and malignant lesions. 01/15/2020 8:42 AM CDT [facility] Other (Cervical) Non-Blood / Unknown 01/04/2020 8:30 AM CDT 01/04/2020 9:20 AM CDT Lefty Gomez MD PATHOLOGY/CYTO LOGY [facility] [address] [place] [address], * LIPID PANEL W REFLEX MEASURED LDL (12/28/2019 8:31 AM CDT) CHOLESTEROL,TOTAL 168 100 - 199 mg/dL 12/28/2019 2:20 PM CDT [facility] TRAL LABORATORY TRIGLYCERIDES 82 <150 mg/dL 12/28/2019 2:20 PM CDT [facility] TRAL LAB[facility] HDL CHOLESTEROL 54 >40 mg/dL 0 2:20 PM CDT [facility] TR[facility] LAB[facility] NON-HDL CHOLESTEROL 114 <145 mg/dl 12/28/2019 2:20 PM CDT [facility] TR[facility] LAB[facility] CHOL/HDL RATIO 3.11 <4.50 12/28/2019 2:20 PM CDT [facility] TRAL LABORAT[facility] LDL CHOLESTEROL 98 <=130 mg/dL 12/28/2019 2:20 PM CDT [facility] TRAL LABORATORY PROVIDER ORDERED STATUS RANDOM 12/28/2019 2:20 PM CDT [facility] TRAL LABORATORY Blood BLOOD SPECIMEN / Unknown Venipuncture / Unknown 12/28/2019 8:31 AM CDT 12/28/2019 8:34 AM CDT Lefty Gomez MD CHEMISTRY [facility] [address] [place] [address], [place] * ANTI HCV [37398.2] (11/05/2016 7:49 AM CDT) HEPATITIS C ANTIBODY Non-Reacti ve Non-Reacti ve 11/05/2016 1:35 PM CDT [facility] TR[facility] Blood BLOOD SPECIMEN / Unknown Venipuncture / Unknown 11/05/2016 7:49 AM CDT 11/05/2016 7:49 AM CDT Narrative [facility] - 11/05/2016 1:35 PM CDT Antibodies to HCV not detected; does not exclude the possibility of exposure to HCV. Lefty Gomez MD SEND OUTS [facility] [address] [place] [address], [place] from Last 3 Months or Most Recently Relevant to Health Maintenance Care Teams Rugby League Footballer Relationship Specialty Start Date End Date Lefty Gomez MD [address] [place] [address] [facility] - General 08/18/05
== END 2023-08-18 08:05 | disposition home or self-care (01) ==
LOC: AMB 08-19 15:59
PROVIDERS: PCP Family Medicine; Visit Provider Internal Medicine
DX: S69.92XA Unspecified injury of left wrist, hand and finger(s), initial encounter (principal); S09.90XA Unspecified injury of head, initial encounter; W01.0XXA Fall on same level from slipping, tripping and stumbling without subsequent striking against object, initial encounter; Y92.480 Sidewalk as the place of occurrence of the external cause
CPT/HCPCS: A0425; A0427

== ENCOUNTER 2023-08-18 08:26 | Emergency (ER) | payer OTHER, SELFPAY ==
[2023-08-18 08:35] VITALS: BP 146/96; PULSE 100; RESP 22; TEMP 36.6; O2SAT 100; BMI 29.5
--- NOTE | 2023-08-18 08:46 | XR_ITS ---
Patient: JULIANA HAYES Facility:?[facility] Patient ID:?[id number] Site Patient ID:?[id number]. Site :?1965 Study:?XRay-Extremity Left WRIST 2 VIEWS-08/18/2023 9:19:06 AM Ordering Physician:RAAD Final Report: Indication: Injury Technique: A total of two views of the left wrist were acquired. Comparison: None Findings: Bones: Nondisplaced fracture of the distal left radius. This appears to primarily involve the ?radial styloid?. Not significantly displaced. No additional fractures Joint spaces: No dislocation Soft tissues: Soft tissue swelling Impression: Distal left radius fracture Dictated by Milind Valiente MD @ 08/18/2023 9:35:24 AM Signed by:?Milind Valiente MD @08/18/2023 9:35:24 AM (Electronic Signature)
--- NOTE | 2023-08-18 08:46 | CT_ITS ---
Patient: JULIANA HAYES Facility:?[facility] Patient ID:?[id number] Site Patient ID:?[id number]. Site :?1965 Study:?CT-Head WITHOUT-08/18/2023 9:19:50 AM Ordering Physician:?DR. RO Final Report: INDICATION: FALL HIT FOREHEAD ON SIDEWALK TECHNIQUE: Head CT without contrast. COMPARISON: None. FINDINGS: CSF spaces: Within normal limits for age. Brain parenchyma and extra-axial spaces: There are mild nonspecific low attenuation white matter changes consistent with chronic microvascular disease. No sign of mass effect , hemorrhage, or midline shift. Skull base and calvarium: The visualized paranasal sinuses and mastoid air cells demonstrate no acute or significant findings. The visualized orbits are grossly unremarkable. No skull fractures. Small midline frontal scalp contusion/hematoma. IMPRESSION: Small midline frontal scalp contusion/hematoma. No evidence of underlying skull fracture or intracranial hemorrhage. Please note that all CT scans at this facility use dose modulation, iterative reconstruction, and/or weight-based dosing when appropriate to reduce radiation dose to as low as reasonably achievable. Dictated by Edu Li MD @ 08/18/2023 9:34:40 AM Signed by:?Edu Li MD @08/18/2023 9:34:40 AM (Electronic Signature)
--- NOTE | 2023-08-18 08:46 | CT_ITS ---
Patient: JULIANA HAYES Facility:?[facility] Patient ID:?[id number] Site Patient ID:?[id number]. Site :?1965 Study:?CT-Spine Cervical WITHOUT-08/18/2023 9:20:28 AM Ordering Physician:?DR. RO Final Report: INDICATION: FALL HIT FOREHEAD ON SIDEWALK TECHNIQUE: CT cervical spine without contrast. COMPARISON: None. FINDINGS: Vertebrae: Alignment is normal. There are no fractures or suspicious bony lesions. Discs and facet joints: There are mild degenerative changes in the disc spaces and facet joints. Extraspinal findings: Paraspinous soft tissues are unremarkable. IMPRESSION: 1. No sign of acute cervical spine fracture. 2. Multilevel degenerative spondylosis. Please note that all CT scans at this facility use dose modulation, iterative reconstruction, and/or weight-based dosing when appropriate to reduce radiation dose to as low as reasonably achievable. Dictated by Edu Li MD @ 08/18/2023 9:37:40 AM Signed by:?Edu Li MD @08/18/2023 9:37:40 AM (Electronic Signature)
--- OUTSIDE RECORDS SUMMARY | 2023-08-18 08:54 | XMS_ITS | Encounter Summary ---
Author Name Unknown Organization [place] Address [address] [place] [address]. [place] [address] Care Team Providers Care Terrazzo Polisher Helper Name Role Phone Lefty Gomez Primary Care Provider [phone] Cesar Ochoa MD Unavailable [phone] Zuleyka Andersen RN Unavailable Unavailable Sergio Stafford MD Unavailable [phone] Reason for Visit * Reason Onset Date Comments Fax Therapy Plan 06/22/2023 Encounter Details Date Type Department Care Team (Latest Contact Info) Description 06/22/2023 Documentation Only [facility] [address] [place] [address] Bernice Shirley Fax Therapy Plan Social History Tobacco Use Types Packs/Day Years Used Date Smoking Tobacco: Never Smokeless Tobacco: Never PHQ-2 Answer Date Recorded PHQ-2 Score 0 08/23/2022 Adolescent Education Answer Date Record ed Getting School Help Needed Not on file 01/01 Sex and Gender Information Value Date Recorded Sex Assigned at Not on file Gender Identity Not on file Sexual Orientation Not on file documented as of this encounter Progress Notes * Bernice Shirley - 06/22/2023 9:52 AM CDT Per Jennifer Bazan RN: Fax Order therapy plan from Dr. Stafford to following contact. Fax order to: [phone]. Faxed on 06/21 at 10:00am. Bernice Shirley documented in this encounter Plan of Treatment Not on file documented as of this encounter Visit Diagnoses Not on filedocumented in this encounter Care Teams Terrazzo Polisher Helper Relationship Specialty Start Date End Date Lefty Gomez [address] [place] [address] PCP - General Family Medicine 04/11/22 Cesar Ochoa MD [address] [facility] [address] [place], [place] [address] Gastroenterology 05/04/22 Zuleyka Andersen, SUZANNE Registered Nurse 05/04/22 Sergio Stafford MD [address] [facility] [address] [place], [place] [id number] Assigned Gastroenterology Provider 05/29/22 documented as of this encounter
--- OUTSIDE RECORDS SUMMARY | 2023-08-18 08:54 | XMS_ITS | Encounter Summary ---
Author Name Unknown Organization [place] Address [address] [place] [address]. [place] [address] Care Team Providers Care Acid Concentrator Name Role Phone Lefty Gomez Primary Care Provider [phone] Cesar Ochoa MD Unavailable [phone] Zuleyka Andersen RN Unavailable Unavailable Sergio Stafford MD Unavailable [phone] Encounter Details Date Type Department Care Team (Late st Contact Info) Description [place]2023 [facility] [place] [facility] [facility] [address] [place] [address] Jennifer Wynne, SUZANNE Social History Tobacco Use Types Packs/Day Years [...] on file documented as of this encounter Plan of Treatment Not on file documented as of this encounter Visit Diagnoses Not on filedocumented in this encounter Care Teams Acid Concentrator Relationship Specialty Start Date End Date Lefty Gomez [address] [place] [address] PCP - General Family Medicine 04/11/22 Cesar Ochoa MD [address] [facility] [address] [place], [place] [id number] Gastroenterology 05/04/22 Zuleyka Andersen, RN Registered Nurse 05/04/22 Sergio Stafford MD [address] [place] [address] Assigned Gastroenterology Provider 05/29/22 documented as of this encounter
--- OUTSIDE RECORDS SUMMARY | 2023-08-18 08:54 | XMS_ITS | Encounter Summary ---
Author Name Unknown Organization [place] Address [address] [place] [address]. [place] [address] Care Team Providers Care Master Steam Yacht Name Role Phone Lefty Gomez Primary Care Provider Cesar Ochoa MD Unavailable [phone] Zuleyka Andersen RN Unavailable Unavailable Sergio Stafford MD Unavailable [phone] Encounter Details Date Type Department Care Team (Late st Contact Info) Description 11/19/2022 [facility] Medical Advice [facility] [address] [place] [address] Sergio Stafford MD [address] [facility] [place], [place] [id number] Social History Tobacco Use Types Packs/Day Years Used Date Smoking Tobacco: Never Smokeless Tobacco: Never PHQ-2 Answer Date Recorded PHQ-2 Score 0 08/23/2022 Sex and Gender Information Value Date Recorded Sex Assigned at Not on file Gender Identity Not on file Sexual Orientation Not on file documented as of this encounter Plan of Treatment Not on file documented as of this encounter Visit Diagnoses Not on filedocumented in this encounter Care Teams Master Steam Yacht Relationship Specialty Start Date End Date Lefty Gomez [address] [place] [address] PCP - General Family Medicine 04/11/22 Cesar Ochoa MD [address] [facility] [address] [place] [address] Gastroenterology 05/04/22 Zuleyka Andersen, RN Registered Nurse 05/04/22 Sergio Stafford MD [address] [facility] [address] [place], [place] [phone] Assigned Gastroenterology Provider 05/29/22 documented as of this encounter
--- OUTSIDE RECORDS SUMMARY | 2023-08-18 08:54 | XMS_ITS | Clinical Summary ---
Author Name Unknown Organization [place] Address [address] [place] [address] Care Team Providers Care Rotary Adjuster Name Role Phone Lefty Gomez Primary Care Provider [phone] Cesar Ochoa MD Unavailable Zuleyka Andersen RN Unavailable Unavailable Sergio Stafford MD Unavailable [phone] Allergies Active Allergy Reactions Criticality Noted Date Comments Levofloxacin Rash Low 12/20/2007 Morphine 05/04/2022 N/V Medications Medication Sig Dispensed Refills Start Date End Date Status levothyroxine (SYNTHROID/LEVOTHROI D) 112 MCG tablet Take 112 mcg by mouth daily Active ondansetron (ZOFRAN ODT) 4 MG ODT tab Q8H 05/05/2022 Active [place]-3 Fatty Acids (FISH OIL) 435 MG CAPS 1 capsule 05/02/2022 Active Multiple Vitamin (MULTIVITAMIN ADULT PO) 1 tablet 05/02/2022 Active fexofenadine (JUNI) 180 MG tablet Daily 05/02/2022 Active calcium carbonate (OS-SALONI) 500 MG tablet 3 times a week 05/02/2022 Active cholecalciferol (VITAMIN D3) 125 mcg (5000 units) capsule Daily 05/02/2022 Acti ve alendronate (FOSAMAX) 70 MG tablet .WEEKLY 03/12/2022 Active levalbuterol (XOPENEX HFA) 45 MCG/ACT inhaler Q4H 05/02/2022 Active HYDROcodone-acetamin ophen (NORCO) 5-325 MG ED starter pack 03/12/2022 Active hydrocortisone 2.5 % ointment APPLY TO EYELIDS TWICE A DAY FOR 2 WEEKS ,THEN NEEDED FOR FLARES 02/19/2022 Active triamcinolone (KENALOG) 0.1 % external ointment APPLY TO AFFECTED AREA 1-2X DAILY FOR 2 WEEKS AT A TIME REPEAT NEEDED FOR FLARES. 02/19/2022 Active bxmwdw-tdwxtkta-kgkg ase (CREON) [id number] units CPEP per EC capsuleIndications:I diopathic acute pancreatitis without infection or necrosis Take 1-2 with meals as needed 100 capsule 4 03/02/2023 Active Active Problems Problem Noted Date Diagnosed Date Acute pancreatitis, unspecif ied complication status, unspecified pancreatitis type 04/11/2022 Acquired hypothyroidism 09/30/2015 Encounters Date Type Department Care Team Description 06/22/2023 MyC Medical Advice [facility] [address] [address] Jennifer Wynne RN 06/22/2023 MyC Medical Advice [facility] [address] [address] Sergio Stafford MD 06/22/2023 Documentation Only [facility] [address] [address] Bernice Shirley Fax Therapy Plan 06/22/2023 Care Coordination [facility] [address] [address] Jennifer Wynne RN Clinic Care Coordination - Follow-up 06/22/2023 Telephone [facility] [address] [address] Sergio Stafford MD Orders (Orders for infusion) from Last 3 Months Social History Tobacco Use Types Packs/Day Years Used Date Smoking Tobacco: Never Smokeless Tobacco: Never Tobacco Cessation:Counseling Given: Not Answered PHQ-2 Answer Date Recorded PHQ-2 Score 0 08/23/2022 Adolescent Education Answer Date Record ed Getting School Help Needed Not on file 01/01 Sex and Gender Information Value Date Recorded Sex Assigned at Not on file Gender Identity Not on file Sexual Orientation Not on file Last Filed Vital Signs Vital Sign Reading Time Taken Comments Blood Pressure 146/83 06/24/2022 11:54 AM CDT Pulse 83 06/24/2022 11:54 AM CDT Temperature 36.7 ??C (98 ??F) 06/24/2022 11:54 AM CDT Respiratory Rate 16 06/24/2022 11:54 AM CDT Oxygen Saturation 98% 06/24/2022 11:54 AM CDT Inhaled Oxygen Concentration - - Weight 86.2 kg (190 lb) 02/28/2023 1:13 PM CINDER PIT CRANE OPERATOR Height 180.3 cm (5' 11) 02/28/2023 1:13 PM CINDER PIT CRANE OPERATOR Body Mass Index 26.5 02/28/2023 1:13 PM CINDER PIT CRANE OPERATOR Plan of Treatment Health Maintenance Due Date Last Done Comments ADVANCE CARE PLANNING 1964 ANNUAL REVIEW OF HM ORDERS 1964 CT COLONOGRAPHY 1964 FIT 1964 FLEX SIG 1964 TSH W/FREE T4 REFLEX 1964 sDNA (Cologuard) 1964 COLONOSCOPY 1974 COLORECTAL CANCER SCREENING 1974 HIV SCREENING 06/21/1979 HEPATITIS C SCREENING 1982 COVID-19 Vaccine ( season) 2022 06/05/2021, 08/20/2020, 07/30/2020 PAP 01/03/2023 01/04/2020 PHQ-2 (once per calendar year) 2023 03/01/2023, 08/23/2022, 05/19/2022 YEARLY PREVENTIVE VISIT 02/04/2024 02/04/20 23, 01/27/2022, 01/09/2021, Additional history exists MAMMO SCREENING 01/24/2025 01/24/2023, 01/09, 01/15/2022, Additional history exists GLUCOSE 06/10/2025 06/10/2022, 04/12, 04/13/2022, Additional history exists LIPID 04/12/2027 04/12/2022 DTAP/TDAP/TD IMMUNIZATION (3 - Td or Tdap) 01/09/2031 01/09/2021, 07/13/2011, 03/12/2003 HEPATITIS B IMMUNIZATION Completed 005, 07/02/2004, 05/20/2004 ZOSTER IMMUNIZATION Completed 06/05/2018, 8 INFLUENZA VACCINE Completed 02/03/2023, , 01/09/2021, Additional history exists HPV IMMUNIZATION Aged Out No longer e ligible based on patient's age to complete this topic IPV IMMUNIZATION Aged Out No longer e ligible based on patient's age to complete this topic MENINGITIS IMMUNIZATION Aged Out No l onger eligible based on patient's age to complete this topic Pneumococcal Vaccine: Pediatrics (0 to 5 Years) and At-Risk Patients (6 to 64 Years) Aged Out No longer eligible based on patient's age to complete this topic RSV MONOCLONAL ANTIBODY Aged Out No l onger eligible based on patient's age to complete this topic Medical Devices Explanted Type Area Chisel Trimmer Device Identifier Shelf Expiration Date Model / Serial / Lot Stent Stafford Pancrea Flex [id number] Str - [id number] Implanted:Qty: 1 on 06/10/2022 by Sergio Stafford MD at [facility] Explanted:Qty: 1 on 06/24/2022 by Sergio Stafford MD at [facility] Stent N/A: Pancreatic Duct TED [id number] 04/11/2061 [id number] / / [id number] Stent Rivera Pancrea Flex [id number] Sgl Pigtail - [id number] Implanted:Qty: 1 on 06/10/2022 by Sergio Stafford MD at [facility] Explanted:Qty: 1 on 06/24/2022 at [facility] Stent N/A: Bile Duct TED [id number] 04/11/2071 [id number] / / [id number] Description:Stent not seen o n x-rays per Dr. Stafford Procedures Procedure Name Priority Date/Time Associated Diagnosis Comments MA SCREENING BILATERAL W/ HERBERTH Routine 01/24/2023 7:20 AM CDT COMPREHENSIVE METABOLIC PANEL STAT 06/10/2022 1:46 PM CINDER PIT CRANE OPERATOR LIPID PROFILE Routine 04/12/2022 9:47 AM CINDER PIT CRANE OPERATOR from Last 3 Months or Most Recently Relevant to Health Maintenance Results * (ABNORMAL) Comprehensive metabolic panel (06/10/2022 1:46 PM CINDER PIT CRANE OPERATOR) Sodium 137 136 - 145 mmol/L 06/10/2022 2:23 PM CINDER PIT CRANE OPERATOR [facility] Potassium 3.6 3.4 - 5.3 mmol/L 06/10/2022 2:23 PM CINDER PIT CRANE OPERATOR [facility] Chloride 102 98 - 107 mmol/L 06/10/2022 2:23 PM CINDER PIT CRANE OPERATOR [facility] Carbon Dioxide (CO2) 23 22 - 29 mmol/L 06/10/2022 2:23 PM CINDER PIT CRANE OPERATOR [facility] Anion Gap 12 7 - 15 mmol/L 06/10/2022 2:23 PM CINDER PIT CRANE OPERATOR [facility] Urea Nitrogen 9.5 6.0 - 20.0 mg/dL 06/10/2022 2:23 PM CINDER PIT CRANE OPERATOR [facility] Creatinine 0.72 0.51 - 0.95 mg/dL 06/10/2022 2:23 PM CINDER PIT CRANE OPERATOR [facility] Calcium 9.1 8.6 - 10.0 mg/dL 06/10/2022 2:23 PM CINDER PIT CRANE OPERATOR [facility] Glucose 104(H) 70 - 99 mg/dL 06/10/2022 2:23 PM CINDER PIT CRANE OPERATOR [facility] Alkaline Phosphatase 90 35 - 104 U/L 06/10/2022 2:23 PM CINDER PIT CRANE OPERATOR [facility] AST 24 10 - 35 U/L 06/10/2022 2:23 PM CINDER PIT CRANE OPERATOR [facility] ALT 16 10 - 35 U/L 06/10/2022 2:23 PM CINDER PIT CRANE OPERATOR [facility] Protein Total 7.0 6.4 - 8.3 g/dL 06/10/2022 2:23 PM CINDER PIT CRANE OPERATOR [facility] Albumin 4.2 3.5 - 5.2 g/dL 06/10/2022 2:23 PM CINDER PIT CRANE OPERATOR [facility] Bilirubin Total 0.6 <=1.2 mg/dL 06/10/2022 2:23 PM CINDER PIT CRANE OPERATOR [facility] GFR Estimate >90 >60 mL/min/1.7 3m2 06/10/2022 2:23 PM CINDER PIT CRANE OPERATOR [facility] Comment:eGFR calculated usin g 2020 CKD-EPI equation. Blood STRUCTURE OF RIGHT UPPER LIMB / Unknown Venipuncture / Unknown 06/10/2022 1:46 PM CINDER PIT CRANE OPERATOR 06/10/2022 1:50 PM CINDER PIT CRANE OPERATOR Boris Wood MD LAB - BLOOD ORDERABL ES [facility] Lab [address] [facility], [address] [place] [address], [facility] [phone] * Lipid Profile (04/12/2022 9:47 AM CINDER PIT CRANE OPERATOR) Pathologist [facility] Cholesterol 152 <200 mg/dL 04/12/2022 10:46 AM CINDER PIT CRANE OPERATOR [facility] Triglycerides 88 <150 mg/dL 04/12/2022 10:46 AM CINDER PIT CRANE OPERATOR [facility] Direct Measure HDL 53 >=50 mg/dL 2022 10:46 AM CINDER PIT CRANE OPERATOR [facility] LDL Cholesterol Calculated 81 <=100 mg/dL 04/12/2022 10:46 AM CINDER PIT CRANE OPERATOR [facility] Non HDL Cholesterol 99 <130 mg/dL 04/12/2022 10:46 AM CINDER PIT CRANE OPERATOR [facility] Blood STRUCTURE OF LEFT UPPER LIMB / Unknown Venipuncture / Unknown 04/12/2022 9:47 AM CINDER PIT CRANE OPERATOR 04/12/2022 10:22 AM CINDER PIT CRANE OPERATOR Narrative [facility] - 04/12/2022 10:46 AM CINDER PIT CRANE OPERATOR Cholesterol Desirable: ??<200 mg/dL Triglycerides Normal: ??Less than 150 mg/dL Borderline High: ??150-199 mg/dL High: ??200-499 mg/dL Very High: ??Greater than or equal to 500 mg/dL Direct Measure HDL Female: ??Greater than or equal to 50 mg/dL Male: ??Greater than or equal to 40 mg/dL LDL Cholesterol Desirable: ??<100mg/dL Above Desirable: ??100-129 mg/dL Borderline High: ??130-159 mg/dL High: ??160-189 mg/dL Very High: ??>= 190 mg/dL Non HDL Cholesterol Desirable: ??130 mg/dL Above Desirable: ??130-159 mg/dL Borderline High: ??160-189 mg/dL High: ??190-219 mg/dL Very High: ??Greater than or equal to 220 mg/dL Yen Sanabria APRN ARBOR PRESS OPERATOR LAB - BL OOD ORDERABLES [facility] [place] [facility] [address], [address] [place] [address], [facility] [phone] from Last 3 Months or Most Recently Relevant to Health Maintenance Advance Directives For more information, please contact: [phone] * Full Code (Latest Code Status on File) Date Activated Date Inactivated Comments 04/11/2022 4:25 PM 04/13/2022 3:39 PM All basic and advanced life-sustaining interventions are performed as appropriate Question Answer Comments Code status determined by: Discussion with abdulaziz nt/ legal decision maker Care Teams Rotary Adjuster Relationship Specialty Start Date End Date Lefty Gomez [address] [place] [address] PCP - General Family Medicine 04/11/22 Cesar Ochoa MD [address] [facility] [address] [place], [place] [address] Gastroenterology 05/04/22 Zuleyka Andersen, RN Registered Nurse 05/04/22 Sergio Stafford MD [address] [place] [address] [address] [place], [place] [address] Assigned Gastroenterology Provider 05/29/22
--- OUTSIDE RECORDS SUMMARY | 2023-08-18 08:54 | XMS_ITS | Referral Summary ---
Author Name Unknown Organization [place] Address [address] [place] [address]. [place] [address] Care Team Providers Care Cracker And Cookie Machine Operator Name Role Phone Lefty Gomez Primary Care Provider Cesar Ochoa MD Unavailable [phone] Zuleyka Andersen RN Unavailable Unavailable Sergio Stafford MD Unavailable Encounters Date Type Department Care Team Description 06/22/[address] [facility] [address] [phone] Jennifer Wynne RN 06/22/[address] [facility] [address] [address] Sergio Stafford MD 06/22/[address] [facility] [address] [address] Bernice Shirley Fax Therapy Plan 06/22/[address] [facility] [address] [address] Jennifer Wynne, RN Clinic Care Coordination - Follow-up 06/22/[address] [facility] [address] [address] Sergio Stafford MD Orders (Orders for infusion) from Last 3 Months Allergies Active Allergy Reactions Criticality Noted Date Comments Levofloxacin Rash Low 12/20/2007 Morphine 05/04/2022 N/V Medications Medication Sig Dispensed Refills Start Date End Date Status levothyroxine (SYNTHROID/LEVOTHROI D) 112 MCG tablet Take 112 mcg by mouth daily Active ondansetron (ZOFRAN ODT) 4 MG ODT tab Q8H 05/05/2022 Active [place]-3 Fatty Acids (FISH OIL) 435 MG CAPS [...] TIME REPEAT NEEDED FOR FLARES. 02/19/2022 Active rrnjbu-hucjziqo-tqut ase (CREON) [id number] units CPEP per EC capsuleIndications:I diopathic acute pancreatitis without infection or necrosis Take 1-2 with meals as needed 100 capsule 4 03/02/2023 Active Active Problems Problem Noted Date Diagnosed Date Acute pancreatitis, unspecif ied complication status, unspecified pancreatitis type 04/11/2022 Acquired hypothyroidism 09/30/2015 Social History Tobacco Use Types Packs/Day Years [...] 86.2 kg (190 lb) 02/28/2023 1:13 PM MUD TRUCKER Height 180.3 cm (5' 11) 02/28/2023 1:13 PM MUD TRUCKER Body Mass Index 26.5 02/28/2023 1:13 PM MUD TRUCKER Plan of Treatment Not on file Medical Devices Explanted Type Area Manager Science Device Identifier Shelf Expiration Date Model / Serial / Lot Stent Rivera Pancrea Flex [id number] Str - [id number] Implanted:Qty: 1 on 06/10/2022 by Sergio Stafford MD at [facility] Explanted:Qty: 1 on 06/24/2022 by Sergio Stafford MD at [facility] Stent N/A: Pancreatic Duct TED [id number] 04/11/2061 [id number] / / [id number] Stent Rivera Pancrea Flex [id number] Sgl Pigtail - [id number] Implanted:Qty: 1 on 06/10/2022 by Sergio Stafford MD at [facility] Explanted:Qty: 1 on 06/24/2022 at [facility] Stent N/A: Bile Duct TED [id number] 04/11/2071 6554 / / [id number] Description:Stent not seen o n x-rays per Dr. Stafford Procedures Procedure Name Priority Date/Time Associated Diagnosis Comments MA SCREENING BILATERAL W/ HERBERTH Routine 01/24/2023 7:20 AM CDT COMPREHENSIVE METABOLIC PANEL STAT 06/10/2022 1:46 PM MUD TRUCKER LIPID PROFILE Routine 04/12/2022 9:47 AM MUD TRUCKER from Last 3 Months or Most Recently Relevant to Health Maintenance Results * (ABNORMAL) Comprehensive metabolic panel (06/10/2022 1:46 PM MUD TRUCKER) Sodium 137 136 - 145 mmol/L 06/10/2022 2:23 PM MUD TRUCKER [facility] Potassium 3.6 3.4 - 5.3 mmol/L 06/10/2022 2:23 PM MUD TRUCKER [facility] Chloride 102 98 - 107 mmol/L 06/10/2022 2:23 PM MUD TRUCKER [facility] Carbon Dioxide (CO2) 23 22 - 29 mmol/L 06/10/2022 2:23 PM MUD TRUCKER [facility] Anion Gap 12 7 - 15 mmol/L 06/10/2022 2:23 PM MUD TRUCKER [facility] Urea Nitrogen 9.5 6.0 - 20.0 mg/dL 06/10/2022 2:23 PM MUD TRUCKER [facility] Creatinine 0.72 0.51 - 0.95 mg/dL 06/10/2022 2:23 PM MUD TRUCKER [facility] Calcium 9.1 8.6 - 10.0 mg/dL 06/10/2022 2:23 PM MUD TRUCKER [facility] Glucose 104(H) 70 - 99 mg/dL 06/10/2022 2:23 PM MUD TRUCKER [facility] Alkaline Phosphatase 90 35 - 104 U/L 06/10/2022 2:23 PM MUD TRUCKER [facility] AST 24 10 - 35 U/L 06/10/2022 2:23 PM MUD TRUCKER [facility] ALT 16 10 - 35 U/L 06/10/2022 2:23 PM MUD TRUCKER [facility] Protein Total 7.0 6.4 - 8.3 g/dL 06/10/2022 2:23 PM MUD TRUCKER [facility] Albumin 4.2 3.5 - 5.2 g/dL 06/10/2022 2:23 PM MUD TRUCKER [facility] Bilirubin Total 0.6 <=1.2 mg/dL 06/10/2022 2:23 PM MUD TRUCKER [facility] GFR Estimate >90 >60 mL/min/1.7 3m2 06/10/2022 2:23 PM MUD TRUCKER [facility] Comment:eGFR calculated usin 2020 CKD-EPI equation. Blood STRUCTURE OF RIGHT UPPER LIMB / Unknown Venipuncture / Unknown 06/10/2022 1:46 PM MUD TRUCKER 06/10/2022 1:50 PM MUD TRUCKER Boris Wood MD LAB - BLOOD ORDERABL ES [facility] Core Lab [address] [facility], [address] [address], [facility] [phone] * Lipid Profile (04/12/2022 9:47 AM MUD TRUCKER) Cholesterol 152 <200 mg/dL 04/12/2022 10:46 AM MUD TRUCKER [facility] Triglycerides 88 <150 mg/dL 04/12/2022 10:46 AM MUD TRUCKER [facility] Direct Measure HDL 53 >=50 mg/dL 2022 10:46 AM MUD TRUCKER [facility] LDL Cholesterol Calculated 81 <=100 mg/dL 04/12/2022 10:46 AM MUD TRUCKER [facility] Non HDL Cholesterol 99 <130 mg/dL 04/12/2022 10:46 AM MUD TRUCKER [facility] Blood STRUCTURE OF LEFT UPPER LIMB / Unknown Venipuncture / Unknown 04/12/2022 9:47 AM MUD TRUCKER 04/12/2022 10:22 AM MUD TRUCKER Narrative [facility] - 04/12/2022 10:46 AM MUD TRUCKER Cholesterol Desirable: ??<200 mg/dL Triglycerides Normal: ??Less [...] or equal to 220 mg/dL Yen Sanabria FOREST BOTANY INSTRUCTOR CLAY PIGEON LOADER LAB - BL OOD ORDERABLES [facility] [place] [facility] [address], [address] [place] [address], [facility] [phone] from Last 3 Months or Most Recently Relevant to Health Maintenance Advance Directives For more information, please contact: [phone] * Full Code (Latest Code Status on File) Date Activated Date Inactivated Comments 04/11/2022 4:25 PM 04/13/2022 3:39 PM All basic and advanced life-sustaining interventions are performed as appropriate Question Answer Comments Code status determined by: Discussion with valentinae nt/ legal decision maker Care Teams Cracker And Cookie Machine Operator Relationship Specialty Start Date End Date Lefty Gomez [address] [place] [address] PCP - General Family Medicine 04/11/22 Cesar Ochoa MD [address] [place] [address] Gastroenterology 05/04/22 Zuleyka Andersen, RN Registered Nurse 05/04/22 Sergio Stafford MD [address] [place] [address] Assigned Gastroenterology Provider 05/29/22
--- OUTSIDE RECORDS SUMMARY | 2023-08-18 08:54 | XMS_ITS | Encounter Summary ---
Author Name Unknown Organization [place] Address [address] [place] [address]. [place] [address] Care Team Providers Care Seam Checker Name Role Phone Lefty Gomez Primary Care Provider Cesar Ochoa MD Unavailable Zuleyka Andersen RN Unavailable Unavailable Sergio Stafford MD Unavailable Reason for Visit * Reason Onset Date Comments Orders 06/22/2023 Orders for infus ion Encounter Details Date Type Department Care Team (Late st Contact Info) Description 06/22/2023 Telephone [facility] [address] 4[address] [place] [address] Sergio Stafford MD [address] [facility] [address] [place], [place] [address] Orders (Orders for infusion) Social History Tobacco Use Types Packs/Day Years [...] on file documented as of this encounter Miscellaneous Notes * Telephone Encounter - Jennifer Wynne RN - 06/22/2023 11:05 AM CDT Called patient to discuss need for local infusions, [facility] not comfortable scheduling patient today. Per patient she's going to tough it out at home. Says provider who can authorize infusions at [facility] will be back nextt week. Agreed I will send [employer] message with [facility] infusion option in case she needs them. ML * Telephone Encounter - Elizabeth Childs - 06/22/2023 10:48 AM CDT [facility] Call Center Phone Message May a detailed message be left on voicemail: yes Reason for Call: Other: [place] is calling to let team know her normal Director is out of town and the provider she is working with is not comfortable signing for this Pt, as they have not seen her in clinic before. Pt will have to have infusions done somewhere else until Pt's information can be reviewed by the Director early next week. Please advise. Thank you! Action Taken: Message routed to: [facility] ([facility]): Daja Travel Screening: Not Applicable * Telephone Encounter - Jennifer Wynne RN - 06/22/2023 8:36 AM CDT Will fax therapy plan as requested : Fax order to: [phone]. Jennifer Wynne, RN Design Assistant * Telephone Encounter - Maria De Jesus Lomeli - 06/22/2023 8:18 AM CDT [facility] Phone Message May a detailed message be left on voicemail: yes Reason for Call: Other: [facility] called as patient called them to come in for infusion - she is having a pancreatic attack. [facility] needs to have orders as to what infusion medication she is to receive. See chart note of 03/02/24. Fax order to: [phone]. Action Taken: Message routed to: [facility] ([facility]): Duarte Call Team Travel Screening: Not Applicable documented in this encounter Plan of Treatment Not on file documented as of this encounter Visit Diagnoses Not on filedocumented in this encounter Care Teams Seam Checker Relationship Specialty Start Date End Date Lefty Gomez [address] [place] [address] PCP - General Family Medicine 04/11/22 Cesar Ochoa MD [address] [facility] [address] [place], [place] [address] Gastroenterology 05/04/22 Zuleyka Andersen, RN Registered Nurse 05/04/22 Sergio Stafford MD [address] [facility] [address] [place], [place] [address] Assigned Gastroenterology Provider 05/29/22 documented as of this encounter
--- OUTSIDE RECORDS SUMMARY | 2023-08-18 08:54 | XMS_ITS | Encounter Summary ---
Author Name Unknown Organization [place] Address [address] [place] [address]. [place] [address] Care Team Providers Care Puncher Name Role Phone Lefty Gomez Primary Care Provider Cesar Ochoa MD Unavailable [phone] Zuleyka Andersen RN Unavailable Unavailable Sergio Stafford MD Unavailable [phone] Encounter Details Date Type Department Care Team (Late st Contact Info) Description 06/15/2022 [facility] Medical Advice [facility] [address] 4[address] [place] [address] Jennifer Wynne, RN Social History Tobacco Use Types Packs/Day Years Used Date Smoking Tobacco: Never Smokeless Tobacco: Never PHQ-2 Answer Date Recorded PHQ-2 Score 0 05/19/2022 Sex and Gender Information Value Date Recorded Sex Assigned at Not on file Gender Identity Not on file Sexual Orientation Not on file COVID-19 Exposure Response Date Recorded In the last 10 days, have yo u been in contact with someone who was confirmed or suspected to have Coronavirus/COVID-19? No / Unsure 06/10/2022 12:16 PM NON EMERGENCY SERVICES AMBULANCE DRIVER documented as of this encounter Plan of Treatment Not on file documented as of this encounter Visit Diagnoses Not on filedocumented in this encounter Care Teams Puncher Relationship Specialty Start Date End Date Lefty Gomez [address] [place] [address] PCP - General Family Medicine 04/11/22 Cesar Ochoa MD [address] [facility] [address] [place] [address] Gastroenterology 05/04/22 Zuleyka Andersen, RN Registered Nurse 05/04/22 Sergio Stafford MD [address] [facility] [address] [place] [address] Assigned Gastroenterology Provider 05/29/22 documented as of this encounter
--- OUTSIDE RECORDS SUMMARY | 2023-08-18 08:54 | XMS_ITS | Encounter Summary ---
Author Name Unknown Organization [facility] Address [address] [place] [address]. [place] [address] Care Team Providers Care Frame Welder Cargo Utility Trailers Name Role Phone Lefty Gomez Primary Care Provider Cesar Ochoa MD Unavailable [phone] Zuleyka Andersen RN Unavailable Unavailable Sergio Stafford MD Unavailable [phone] Encounter Details Date Type Department Care Team (Late st Contact Info) Description 06/22/2023 [facility] Medical Advice [facility] [address] 4th [place] [address] Jennifer Wynne, SUZANNE Social History [...] on filedocumented in this encounter Care Teams Frame Welder Cargo Utility Trailers Relationship Specialty Start Date End Date Lefty Gomez [address] [place] [address] PCP - General Family Medicine 04/11/22 Cesar Ochoa MD [address] [facility] [address] [place], [place] [address] Gastroenterology 05/04/22 Zuleyka Andersen, RN Registered Nurse 05/04/22 Sergio Stafford MD [address] [place] [address] Assigned Gastroenterology Provider 05/29/22 documented as of this encounter
--- OUTSIDE RECORDS SUMMARY | 2023-08-18 08:54 | XMS_ITS | Encounter Summary ---
Author Name Unknown Organization [place] Address [address] [place] [address]. [place] [address] Care Team Providers Care Audio/Video Engineer Name Role Phone Lefty Gomez Primary Care Provider Cesar Ochoa MD Unavailable [phone] Zuleyka Andersen RN Unavailable Unavailable Sergio Stafford MD Unavailable Encounter Details Date Type Department Care Team (Late st Contact Info) Description 06/22/2023 [facility] Medical Advice [facility] [address] 4th [place] [address] Sergio Stafford MD [address] [facility] [address] [place], [place] [address] Social History Tobacco Use Types Packs/Day Years [...] on filedocumented in this encounter Care Teams Audio/Video Engineer Relationship Specialty Start Date End Date Lefty Gomez [address] [place] [address] PCP - General Family Medicine 04/11/22 Cesar Ocho[address] MD [address] [facility] [address] [place] [address] Gastroenterology 05/04/22 Zuleyka Andersen, RN Registered Nurse 05/04/22 Sergio Stafford MD [address] [facility] [address] [place] [address] Assigned Gastroenterology Provider 05/29/22 documented as of this encounter
--- OUTSIDE RECORDS SUMMARY | 2023-08-18 08:54 | XMS_ITS | Encounter Summary ---
Author Name Unknown Organization [facility] Address [address] [place] [address]. [place] [address] Care Team Providers Care Electron Tube Assembler Name Role Phone Lefty Gomez Primary Care Provider [phone] Cesar Ochoa MD Unavailable Zuleyka Andersen RN Unavailable Unavailable Sergio Stafford MD Unavailable Reason for Visit * Reason Onset Date Comments Appointment 05/19/202205/19 appt Encounter Details Date Type Department Care Team (Late st Contact Info) Description 05/19/2022 Telephone [facility] [address] 4[address] [place] [address] Sergio Stafford MD 515 [facility] [address] [place], [place] [id number] Appointment (05/19 appt) Social History Tobacco Use Types Packs/Day Years [...] suspected to have Coronavirus/COVID-19? No / Unsure 05/06/2022 5:26 AM PLC TECHNICIAN documented as of this encounter Miscellaneous Notes * Telephone Encounter - Cameron Xavier - 05/19/2022 1:23 PM CST [facility] Phone Message May a detailed message be left on voicemail: yes Reason for Call: Other: Aliyah is calling in regards to her appt with Dr. Stafford on 05/19. Pt states that she had spoken with an RN and was told that she would get a text for this appt, but she has yet to hear from anyone since then. Please call back as soon as possible to discuss. Action Taken: Message routed to: [facility] Panc-Bili Travel Screening: Not Applicable TECHNICIAN documented in this encounter Plan of Treatment Not on file documented as of this encounter Visit Diagnoses Not on filedocumented in this encounter Care Teams Electron Tube Assembler Relationship Specialty Start Date End Date Lefty Gomez [address] [place] [address] PCP - General Family Medicine 04/11/22 Cesar Ohcoa MD 500 [facility] [address] [place], [place] [address] Gastroenterology 05/04/22 Zuleyka Andersen, RN Registered Nurse 05/04/22 Sergio Stafford MD [address] [facility] [address] [place], [place] [address] Assigned Gastroenterology Provider 05/29/22 documented as of this encounter
--- OUTSIDE RECORDS SUMMARY | 2023-08-18 08:54 | XMS_ITS | Encounter Summary ---
Author Name Unknown Organization [place] [facility] Address [address] [place] [address]. [place] [address] Care Team Providers Care Overhead Door Technician Name Role Phone Lefty Gomez Primary Care Provider [phone] Cesar Ochoa MD Unavailable [phone] Zuleyka Andersen RN Unavailable Unavailable Sergio Stafford MD Unavailable [phone] Reason for Visit * Reason Comments Clinic Care Coordination - Follow-up Encounter Details Date Type Department Care Team (Latest Contact Info) Description 06/22/2023 Care Coordination [facility]iliary [facility] [address] 4th [place] [phone] Jennifer Wynne, SUZANNE Clinic Care Coordination - Follow-up Social History Tobacco Use Types Packs/Day Years [...] on filedocumented in this encounter Care Teams Overhead Door Technician Relationship Specialty Start Date End Date Lefty Gomez [address] [place] [address] PCP - General Family Medicine 04/11/22 Cesar Ochoa MD 500 [facility] [address] [place] [address] Gastroenterology 05/04/22 Zuleyka Andersen, RN Registered Nurse 05/04/22 Sergio Stafford MD [address] [facility] [address] [place] [address] Assigned Gastroenterology Provider 05/29/22 documented as of this encounter
--- OUTSIDE RECORDS SUMMARY | 2023-08-18 08:54 | XMS_ITS | Encounter Summary ---
Author Name Unknown Organization [facility] [place] [facility] Address [address] [place] [address]. [place] [address] Care Team Providers Care Agronomy Advisor Name Role Phone Lefty Gomez Primary Care Provider Cesar Ochoa MD Unavailable [phone] Zuleyka Andersen RN Unavailable Unavailable Sergio Stafford MD Unavailable [phone] Encounter Details Date Type Department Care Team (Late st Contact Info) Description 08/23/2022 [facility] [address] [place] [address] Jennifer Wynne, SUZANNE Social History [...] on filedocumented in this encounter Care Teams Agronomy Advisor Relationship Specialty Start Date End Date Lefty Gomez [address] [place] [address] PCP - General Family Medicine 04/11/22 Cesar Ochoa MD 500 [facility] [address] [place] [address] Gastroenterology 05/04/22 Zuleyka Andersen, RN Registered Nurse 05/04/22 Sergio Stafford MD [address] [place] [address] Assigned Gastroenterology Provider 05/29/22 documented as of this encounter
--- OUTSIDE RECORDS SUMMARY | 2023-08-18 08:54 | XMS_ITS | Encounter Summary ---
Author Name Unknown Organization [place] Address [address] [place] [address]. [place] [address] Care Team Providers Care Wet Wheeler Name Role Phone Lefty Gomez Primary Care Provider [phone] Cesar Ochoa MD Unavailable [phone] Zuleyka Andersen RN Unavailable Unavailable Sergio Stafford MD Unavailable [phone] Encounter Details Date Type Department Care Team (Late st Contact Info) Description 12/23/2022 [facility] Medical Advice [facility] [address] 4th [place] [address] Sergio Stafford MD [address] [place] [address] [address] [place], [place] [id number] Social History Tobacco Use Types Packs/Day Years [...] suspected to have Coronavirus/COVID-19? No / Unsure 11/26/2022 10:11 AM CDT documented as of this encounter Plan of Treatment Not on file documented as of this encounter Visit Diagnoses Not on filedocumented in this encounter Care Teams Wet Wheeler Relationship Specialty Start Date End Date Lefty Gomez [address] [place] [address] PCP - General Family Medicine 04/11/22 Cesar Ochoa MD 500 [facility] [address] [place] [address] Gastroenterology 05/04/22 Zuleyka Andersen, SUZANNE Registered Nurse 05/04/22 Sergio Stafford MD [address] [place] [address] [address] [place] [address] Assigned Gastroenterology Provider 05/29/22 documented as of this encounter
--- OUTSIDE RECORDS SUMMARY | 2023-08-18 08:54 | XMS_ITS | Encounter Summary ---
Author Name Unknown Organization [facility] Address [address] [place] [address]. [place] [address] Care Team Providers Care Fruit Packer Name Role Phone Lefty Gomez Primary Care Provider [phone] Cesar Ochoa MD Unavailable [phone] Zuleyka Andersen RN Unavailable Unavailable Sergio Stafford MD Unavailable [phone] Encounter Details Date Type Department Care Team (Late st Contact Info) Description 05/03/2022 External Order Results [facility] [address] [place] [address] Outside, Provider Social History Tobacco Use Types Packs/Day Years Used Date Smoking Tobacco: Never Smokeless Tobacco: Never Sex and Gender Information Value Date Recorded Sex Assigned at Not on file Gender Identity Not on file Sexual Orientation Not on file COVID-19 Exposure Response Date Recorded In the last 10 days, have yo u been in contact with someone who was confirmed or suspected to have Coronavirus/COVID-19? No / Unsure 05/06/2022 5:26 AM SUPERVISOR IN CHARGE documented as of this encounter Plan of Treatment Not on file documented as of this encounter Procedures Procedure Name Priority Date/Time Associated Diagnosis Comments CBC WITH PLATELETS & DIFFERENTIAL Routine 05/03/2022 6:49 AM SUPERVISOR IN CHARGE LIPASE Routine 05/03/2022 6:49 AM SUPERVISOR IN CHARGE HEMOGLOBIN A1C Routine 05/03/2022 6:49 AM SUPERVISOR IN CHARGE BASIC METABOLIC PANEL Routine 05/03/2022 6:49 AM SUPERVISOR IN CHARGE CBC WITH PLATELETS & DIFFERENTIAL Routine 05/02/2022 6:50 PM SUPERVISOR IN CHARGE COVID-19 VIRUS (CORONAVIRUS) BY PCR (EXTERNAL RESULT) Routine 05/02/2022 5:30 PM SUPERVISOR IN CHARGE TRIGLYCERIDES Routine 05/02/2022 6:49 AM SUPERVISOR IN CHARGE COMPREHENSIVE METABOLIC PANEL Routine 05/02/2022 6:49 AM SUPERVISOR IN CHARGE LIPASE Routine 05/02/2022 1:50 AM SUPERVISOR IN CHARGE documented in this encounter Results * (ABNORMAL) Basic metabolic panel (05/03/2022 6:49 AM SUPERVISOR IN CHARGE) Sodium (External) 141 135 - 149 mmol/L NON-INTERFACED (ONBASE SCANS) Potassium (External) 4.3 3.6 - 5.1 mmol/L NON-INTERFACED (ONBASE SCANS) Chloride (External) 110 96 - 114 mmol/L NON-INTERFACED (ONBASE SCANS) CO2 (External) 29 2.0 - 32 mmol/L NON-INTERFACED (ONBASE SCANS) Urea Nitrogen (External) 11 7 - 30 mg/dL NON-INTERFACED (ONBASE SCANS) Creatinine (External) 0.7 0.5 - 1.5 g/dL NON-INTERFACED (ONBASE SCANS) GFR Estimated (External) 101 ml/min NON-INTERFACED (ONBASE SCANS) Calcium (External) 8.3(L) 8.4 - 10.6 ng/dL NON-INTERFACED (ONBASE SCANS) Glucose (External) 112 60 - 115 mg/dL NON-INTERFACED (ONBASE SCANS) Blood BLOOD SPECIMEN / Unknown 05/03/2022 6:49 AM SUPERVISOR IN CHARGE Narrative RANULFO TERRY - 05/04/2022 11:13 AM SUPERVISOR IN CHARGE Verified by Ellis Orosco on 05/04/2022. Provider Outside LAB - BLOOD ORDERABL ES RANULFO TERRY NON-INTERFACED (ONBASE SCANS) * (ABNORMAL) Lipase (05/03/2022 6:49 AM SUPERVISOR IN CHARGE) Lipase Level (External) 4,790(H) 23 - 300 BREEZE PFT Blood BLOOD SPECIMEN / Unknown 05/03/2022 6:49 AM SUPERVISOR IN CHARGE Narrative RANULFO PFT - 05/04/2022 11:13 AM SUPERVISOR IN CHARGE Verified by Ellis Orosco on 05/04/2022. Provider Outside LAB - BLOOD ORDERABL ES RANULFO PFT * (ABNORMAL) CBC with Platelets & Differential (05/03/2022 6:49 AM SUPERVISOR IN CHARGE) WBC Count (External) 7.19 4.50 - 11.0 K/UL NON-INTERFACE D (ONBASE SCANS) RBC Count (External) 4.50 4.00 - 5.20 M/UL NON-INTERFACE D (ONBASE SCANS) Hemoglobin (External) 13.4 12.0 - 16.0 GM/DL NON-INTERFACE D (ONBASE SCANS) Hematocrit (External) 40.8 33.0 - 51.0 % NON-INTERFACE D (ONBASE SCANS) MCV (External) 91 80 - 100 fL NON-INTERFACE D (ONBASE SCANS) MCH (External) 30 26 - 34 Pg NON- INTERFACE D (ONBASE SCANS) MCHC (External) 33 32 - 36 gm/dl NON-INTERFACE D (ONBASE SCANS) Platelet Count (External) 200 140 - 440 K/UL NON-INTERFACE D (ONBASE SCANS) RDW (External) 12.8 11.5 - 15.5 % NON-INTERFACE D (ONBASE SCANS) % Neutrophils (External) 71.7 42.0 - 72.0 % NON-INTERFACE D (ONBASE SCANS) % Lymphocytes (External) 18.8(L) 20 - 44 % NON-INTERFACE D (ONBASE SCANS) % Monocytes (External) 7.1 0 % NON-INTERFACE D (ONBASE SCANS) % Eosinophils (External) 1.9 0 - 0 % NON-INTERFACE D (ONBASE SCANS) % Basophils (External) 0.1 0.0 - 3.0 % NON-INTERFACE D (ONBASE SCANS) Absolute Neutrophils (External) 5.15 1.7 - 7.0 K/UL NON-INTERFACE D (ONBASE SCANS) Absolute Lymphocytes (External) 1.40 0.90 - 2.90 K/UL NON-INTERFACE D (ONBASE SCANS) Absolute Monocytes (External) 0.50 0.00 - 0.90 K/UL NON-INTERFACE D (ONBASE SCANS) Absolute Eosinophils (External) 0.14 0.00 - 0.50 K/UL NON-INTERFACE D (ONBASE SCANS) Absolute Basophils (External) 0.0 0.00 - 0.30 K/UL NON-INTERFACE D (ONBASE SCANS) Blood BLOOD SPECIMEN / Unknown 05/03/2022 6:49 AM SUPERVISOR IN CHARGE Narrative BREEZE PFT - 05/04/2022 11:13 AM SUPERVISOR IN CHARGE Verified by Ellis Orosco on 05/04/2022. Provider Outside LAB - BLOOD ORDERABL ES Performing Organization Address [facility] Co de Phone Number YARELIEZE PFT NON-INTERFACED (ONBASE SCANS) * (ABNORMAL) Hemoglobin A1c (05/03/2022 6:49 AM SUPERVISOR IN CHARGE) Hemoglobin A1C (External) 6.01(H) 0 - 5.6 % NON-INTERFACE D (ONBASE SCANS) Blood BLOOD SPECIMEN / Unknown 05/03/2022 6:49 AM SUPERVISOR IN CHARGE Narrative YARELIEZE PFT - 05/04/2022 11:13 AM SUPERVISOR IN CHARGE Verified by Ellis Orosco on 05/04/2022. Provider Outside LAB - BLOOD ORDERABL YARELIEZE PFT NON-INTERFACED (ONBASE SCANS) * (ABNORMAL) CBC with Platelets & Differential (05/02/2022 6:50 PM SUPERVISOR IN CHARGE) WBC Count (External) 5.66 4.50 - 11.0 K/UL NON-INTERFACE D (ONBASE SCANS) RBC Count (External) 4.64 4.00 - 5.20 M/UL NON-INTERFACE D (ONBASE SCANS) Hemoglobin (External) 13.9 12.0 - 16.0 GM/DL NON-INTERFACE D (ONBASE SCANS) Hematocrit (External) 41.2 33.0 - 51.0 % NON-INTERFACE D (ONBASE SCANS) MCV (External) 89 80 - 100 fL NON-INTERFACE D (ONBASE SCANS) MCH (External) 30 26 - 34 Pg NON- INTERFACE D (ONBASE SCANS) MCHC (External) 34 32 - 36 gm/dl NON-INTERFACE D (ONBASE SCANS) Platelet Count (External) 221 140 - 440 K/UL NON-INTERFACE D (ONBASE SCANS) RDW (External) 12.5 11.5 - 15.5 % NON-INTERFACE D (ONBASE SCANS) % Neutrophils (External) 71.9 42.0 - 72.0 % NON-INTERFACE D (ONBASE SCANS) % Lymphocytes (External) 19.8(L) 20 - 44 % NON-INTERFACE D (ONBASE SCANS) % Monocytes (External) 6.0 0.0 - 11.0 % NON-INTERFACE D (ONBASE SCANS) % Eosinophils (External) 1.9 0.0 - 7.0 % NON-INTERFACE D (ONBASE SCANS) % Basophils (External) 0.2 0.0 - 3.0 % NON-INTERFACE D (ONBASE SCANS) Absolute Neutrophils (External) 4.07 1.7 - 7.0 K/UL NON-INTERFACE D (ONBASE SCANS) Absolute Lymphocytes (External) 1.10 0.90 - 2.90 K/UL NON-INTERFACE D (ONBASE SCANS) Absolute Monocytes (External) 0.30 0.00 - 0.90 K/UL NON-INTERFACE D (ONBASE SCANS) Absolute Eosinophils (External) 0.11 0.00 - 0.50 K/UL NON-INTERFACE D (ONBASE SCANS) Absolute Basophils (External) 0.01 0.00 - 0.30 K/UL NON-INTERFACE D (ONBASE SCANS) Blood BLOOD SPECIMEN / Unknown 05/02/2022 6:50 PM SUPERVISOR IN CHARGE Narrative RANULFO TERRY - 05/04/2022 11:13 AM SUPERVISOR IN CHARGE Verified by Ellis Orosco on 05/04/2022. Provider Outside LAB - BLOOD ORDERABL ES BREEZE PFT NON-INTERFACED (ONBASE SCANS) * COVID-19 Virus (Coronavirus) by PCR (External Result) (05/02/2022 5:30 PM SUPERVISOR IN CHARGE) Pathologist [facility] COVID-19 Virus by PCR (External Result) Negative Negative NON-INTERFACE D (ONBASE SCANS) 05/02/2022 5:30 PM SUPERVISOR IN CHARGE Narrative RANULFO PFT - 05/07/2022 10:42 AM SUPERVISOR IN CHARGE Verified by Ellis Orosco on 05/04/2022. Provider Outside LABORATORY RANULFO PFT NON-INTERFACED (ONBASE SCANS) * (ABNORMAL) Comprehensive metabolic panel (05/02/2022 6:49 AM SUPERVISOR IN CHARGE) Pathologist [facility] Sodium (External) 139 135 - 149 mmol/L NON-INTERFACE D (ONBASE SCANS) Potassium (External) 3.8 3.6 - 5.1 mmol/L NON-INTERFACE D (ONBASE SCANS) Chloride (External) 107 96 - 114 mmol/L NON-INTERFACE D (ONBASE SCANS) CO2 (External) 26 2.0 - 32 mmol/L NON-INTERFACE D (ONBASE SCANS) Urea Nitrogen (External) 12 7 - 30 mg/dL NON-INTERFACE D (ONBASE SCANS) Creatinine (External) 0.8 0.5 - 1 g/dL NON-INTERFACE D (ONBASE SCANS) GFR Estimated (External) 86 ml/min NON-INTERFACE D (ONBASE SCANS) Calcium (External) 9.3 8.4 - 10.6 ng/dL NON-INTERFACE D (ONBASE SCANS) Glucose (External) 190(H) 60 - 115 mg/dL NON-INTERFACE D (ONBASE SCANS) Albumin (External) 4.2 3.3 - 5.0 g/dL NON-INTERFACE D (ONBASE SCANS) Protein Total (External) 7.2 6.0 - 8.3 g/dL NON-INTERFACE D (ONBASE SCANS) Bilirubin Total (External) 0.4 0.1 - 1.5 g/dL NON-INTERFACE D (ONBASE SCANS) Bilirubin Direct (External) 0.1 0.0 - 0.5 mg/dL NON-INTERFACE D (ONBASE SCANS) AST (External) 25 12 - 35 U/L NON-INTERFACE D (ONBASE SCANS) ALT (External) 24 4 - 35 U/L NON- INTERFACE D (ONBASE SCANS) Alk Phosphatase (External) 120 40 - 150 U/L NON-INTERFACE D (ONBASE SCANS) Blood BLOOD SPECIMEN / Unknown 05/02/2022 6:49 AM SUPERVISOR IN CHARGE Narrative BREEZE PFT - 05/04/2022 11:13 AM SUPERVISOR IN CHARGE Verified by Ellis Orosco on 05/04/2022. Provider Outside LAB - BLOOD ORDERABL ES BREEZE PFT NON-INTERFACED (ONBASE SCANS) * (ABNORMAL) Triglycerides (05/02/2022 6:49 AM SUPERVISOR IN CHARGE) Triglycerides (External) 236(H) 40 - 149 mg/dL NON-INTERFACE D (ONBASE SCANS) Blood BLOOD SPECIMEN / Unknown 05/02/2022 6:49 AM SUPERVISOR IN CHARGE Narrative BREEZE PFT - 05/04/2022 11:13 AM SUPERVISOR IN CHARGE Verified by Ellis Orosco on 05/04/2022. Provider Outside LAB - BLOOD ORDERABL ES BREEZE PFT NON-INTERFACED (ONBASE SCANS) * (ABNORMAL) Lipase (05/02/2022 1:50 AM SUPERVISOR IN CHARGE) Lipase Level (External) 7,608(H) 23 - 300 BREEZE PFT Blood BLOOD SPECIMEN / Unknown 05/02/2022 1:50 AM SUPERVISOR IN CHARGE Narrative BREEZE PFT - 05/04/2022 11:13 AM SUPERVISOR IN CHARGE Verified by Ellis Orosco on 05/04/2022. Provider Outside LAB - BLOOD ORDERABL ES BREEZE PFT documented in this encounter Visit Diagnoses Not on filedocumented in this encounter Care Teams Fruit Packer Relationship Specialty Start Date End Date Lefty Gomez [address] [place] [address] PCP - General Family Medicine 04/11/22 Cesar Ochoa MD 500 [facility] [address] [place], [place] [address] Gastroenterology 05/04/22 Zuleyka Andersen, RN Registered Nurse 05/04/22 Sergio Stafford MD [address] [facility] [address] [place], [place] [address] Assigned Gastroenterology Provider 05/29/22 documented as of this encounter
--- OUTSIDE RECORDS SUMMARY | 2023-08-18 08:55 | XMS_ITS | Encounter Summary ---
Author Name Unknown Organization [place] Address [address] [place] [address]. [place] [address] Care Team Providers Care Check Viewer Name Role Phone Lefty Gomez Primary Care Provider Cesar Ochoa MD Unavailable [phone] Zuleyka Andersen RN Unavailable Unavailable Sergio Stafford MD Unavailable [phone] Encounter Details Date Type Department Care Team ([facility] st Contact Info) Description 04/15/2022 [facility] Medical Advice [facility] Center [address] [place] [address] Glenis Bustamante Social History Tobacco Use Types Packs/Day Years [...] suspected to have Coronavirus/COVID-19? No / Unsure 04/11/2022 1:42 PM BENCH TECHNICIAN documented as of this encounter Plan of Treatment Not on file documented as of this encounter Visit Diagnoses Not on filedocumented in this encounter Care Teams Check Viewer Relationship Specialty Start Date End Date Lefty Gomez [address] [place] [address] PCP - General Family Medicine 04/11/22 Cesar Ochoa MD 500 [facility] [address] [place], [place] [address] Gastroenterology 05/04/22 Zuleyka Andersen, RN Registered Nurse 05/04/22 Sergio Stafford MD [address] [place] [address] Assigned Gastroenterology Provider 05/29/22 documented as of this encounter
--- OUTSIDE RECORDS SUMMARY | 2023-08-18 08:55 | XMS_ITS | Clinical Summary ---
Author Name Unknown Organization [facility] Address [place], [place] [address] Care Team Providers Care [employer] Reading Teacher Name Role Phone Lefty Gomez MD Primary Care Provider Allergies Active Allergy Reactions Criticality Noted Date Comments Levofloxacin Rash 12/20/2007 Morphine Nausea Only Low 05/02/2022 N/V Metoclopramide Other - Describe In Comment Field 02/03/2023 Dizzy and nausea Medications Medication Sig Dispensed Refills Start Date End Date Status Khtbh-5-OPQ-EPA-Fish Oil (EPA-DHA 720) 290-430-1.4 mg-mg-gram Cap Take 1 Tab by mouth once daily. 0 05/21/2009 Active cholecalciferol (VITAMIN D-3) 2,000 unit capsule Take 1 capsule by mouth 2 times daily. 0 07/13/2011 Active multivitamin (MVI) tablet Take 1 tablet by mouth once daily. 0 02/07/2020 Active tacrolimus 0.03% (PROTOPIC) 0.03 % ointmentIndications:C hronic eczema Apply topically to affected area(s) two times daily. 30 g 1 01/27/2022 Active alendronate (Fosamax) 70 mg tabletIndications:Ost eoporosis with current pathological fracture, unspecified osteoporosis type, initial encounter Take 1 Tablet (70 mg) by mouth once a week in the morning. Take on empty stomach with full glass of water. Do not lie down for 1 hr. 12 Tablet 3 02/03/2023 Active levalbuterol (XOPENEX HFA) 45 mcg/actuation inhalerIndications:Wh eeze Inhale 1-2 Puffs by mouth every 4 hours if needed for Shortness Of Breath. 15 g 1 02/03/2023 Active levothyroxine (SYNTHROID) 112 mcg tabletIndications:Acq uired hypothyroidism Take 1 Tablet (112 mcg) by mouth before breakfast. 90 Tablet 3 02/03/2023 Active oblqbj-idzyoxjy-znhwa se (CREON) 24,000-76,000 -120,000 unit cpDR delayed-release capsule One oral before meals as needed for pancreatitis. 06/13/2023 Active polyethylene glycol-electrolyte (GOLYTELY) 236-22.74-6.74 -5.86 gram suspensionIndications :Encounter for screening colonoscopy Drink 2 liters (half the bottle) the day before colonoscopy and 2 liters (remaining prep) 6 hours prior to colonoscopy appointment. 4000 mL 06/28/2023 Active Active Problems Problem Noted Date Diagnosed Date Chronic pancreatitis 12/25/2022 Other acute pancreatitis without necrosis or inf ection 03/17/2022 Osteoporosis 01/10/2020 Overview: Endo consult 01/2020-> Tymlos x 2 yrs, then Bisphos. Acquired hypothyroidism 09/30/2015 Adenomatous colon polyp 11/13/2014 Overview: Colonoscopy 11/2014 multiple polyps repeat in 2 months at the hospital Colonoscopy 11/2014 no recurrent polyps repeat in 3 years Colonoscopy 02/2018 2 polyps, repeat in 5 years Colonoscopy 06/2023 TA, SSA, repeat in 5 years Migraine, unspecified, witho ut mention of intractable migraine without mention of status migrainosus Impaired fasting glucose Resolved Problems Problem Noted Date Diagnosed Date Resolved Date Unspecified hypothyroidism 0 09/30/2015 Other malignant lymphomas, u nspecified site, extranodal and solid organ sites 021 Overview: treated with radiation and chemo at age 26 Encounters Date Type Department Care Team Description 07/04/2023 6:30 AM CDT Office Visit [facility] at [facility] [address] [place] [id number] Sergio Meade MD 07/04/2023 Lab Requisition [facility] [phone] Sergio Meade MD 06/29/2023 Travel 06/13/2023 8:25 AM CIVIL ESTIMATOR Preop Visit [facility] [address] [place] [address] Lefty Gomez MD Preoperative Exam (DOS: 07/04/2023, colonoscopy, [facility], Dr. Meade) 06/13/2023 Travel from Last 3 Months Immunizations Name Administration Dates Next Due AMB Influenza, IIV4 PF (=>6 mos Flulaval,Fluzone Fluarix)(Flu Clinic Only) 01/25/2018,02/01/2017,02/25/2016 COVID-19 vaccine (Mole[employer] LabsBio NTech 30mcg/0.3mL) PF, MDV 08/20/2020,07/30/2020 Hepatitis B (Adult) 11/24/2004,07/02/2004,2004 Influenza, IIV3 (Age >=3 years) 02/23/2008,03/12 Influenza, IIV4 02/03/2023,,01/09/2021, 020 Influenza, IIV4 (=>6mos) MDV 01/18/2019 Td (Age >=7 Years) 03/12/2003 Tdap 01/09/2021,07/13/2011 Zoster (Shingrix-RZV, recombinant) 06/05/2018, Family History Medical History Relation Name Comments Asthma Brother 1 Luis Armando Buysman Diabetes Brother 1 Luis Armando Buysman Diabetes Brother 2 Verona Buysman Obesity Brother 2 Verona Buysman Cancer-prostate Father Isaías Buyrickyan Diabetes Father Isaías Rocha Stroke Father Isaías Rocha Good Health Mother Jasmin Rocha Diabetes Paternal Grandmother Gisselle Rocha Anesthesia Problem No Family History Cancer-breast No Family History Cancer-colon No Family History Cancer-ovarian No Family History Heart attack No Family History Relation Name Status Comments Brother 1 Luis Armando Buysman Brother 2 Verona Buysman Father Isaías Buysman Alive Mother Jasmin Burciagaan Alive Paternal Grandmother Gisselle Rocha Social History Tobacco Use Types Packs/Day Years Used Date Smoking Tobacco: Never Smokeless Tobacco: Never Tobacco Cessation:Counseling Given: No Alcohol Use Standard Drinks/Week Comments Not Currently 0 (1 standard drink = 0.6 oz pur e alcohol) PHQ-2 Answer Date Recorded PHQ-2 TOTAL SCORE 0 02/03/2023 Social Connections Answer Date Recorded Frequency of Communication with Friends and Fami ly Not on file 06/21/2023 Financial Resource Strain Answer Date R ecorded Difficulty of Paying Living Expenses 3 06/18/2022 Difficulty of Paying Living Expenses Not on file 06/18/2022 Food Insecurity Answer Date Recorded Worried About Running Out of Food in the Last Ye ar 1 06/18/2022 Transportation Needs Answer Date Record ed Lack of Transportation (Medical) 1 06/18/2022 Housing Stability Answer Date Recorded Unable to Pay for Housing in the Last Year 1 06/18/2022 Sex and Gender Information Value Date Recorded Sex Assigned at Female 05/04/2021 8:26 PM CIVIL ESTIMATOR Gender Identity Female 05/04/2021 8:26 PM CIVIL ESTIMATOR Sexual Orientation Straight 05/04/2021 8: 26 PM CIVIL ESTIMATOR Obstetrics History Last Filed Vital Signs Vital Sign Reading Time Taken Comments Blood Pressure 112/72 06/13/2023 8:22 AM CIVIL ESTIMATOR Pulse 84 06/13/2023 8:22 AM CIVIL ESTIMATOR Temperature 36.6 ??C (97.9 ??F) 07/14/2020 2:48 PM CD T Respiratory Rate 16 02/07/2020 1:07 PM CDT Oxygen Saturation 95% 06/13/2023 8:22 AM CIVIL ESTIMATOR Inhaled Oxygen Concentration - - Weight 87.9 kg (193 lb 12.8 oz) 06/13/2023 8:22 AM CIVIL ESTIMATOR Height 180.6 cm (5' 11.1) 06/13/2023 8:22 AM CS T Body Mass Index 26.95 06/13/2023 8:22 AM CIVIL ESTIMATOR Plan of Treatment Health Maintenance Due Date Last Done Comments COVID-19 vaccine series ( season) 2022 06/05/2021, 08/20/2020, 07/30/2020 Influenza for age 50-64 12/11/2023 02/04/20 23, 01/27/2022, 01/09/2021, Additional history exists Mammogram for age 45-75 01/25/2024 01/25/20 23, 01/15/2022, 11/14/2020, Additional history exists Depression screening for age 12+ 02/04/2024 02/03/2023, 02/03/2023, 01/28/2022, Additional history exists BMI (ht and wt on same day) for age 18+ 06/12/2024 06/13/2023, 02/03/2023, 06/18/2022, Additional history exists Lipids for age 45-75 12/27/2024 12/28/2019, 11/07/2018, 11/03/2017, Additional history exists Pap test for age 21-65 01/03/2025 , 01/04/2020, 11/05/2016, Additional history exists Colonoscopy through age 75 07/03/202807/03, 07/04/2023, 02/13/2018, Additional history exists Tetanus booster 01/09/2031 01/09/2021, 04/0 06/2011, 03/12/2003 Hepatitis C screening for age 18-79 Completed 11/05/2016 Zoster (shingles) series for age 50+ Completed 06/05/2018, 02/16/2018 Tdap Completed 01/09/2021, 07/13/2011 HIV for age 15-65 Completed 02/03/2023 Pneumococcal series for age 6-64 Aged Out No longer eligible based on patient's age to complete this topic Procedures Procedure Name Priority Date/Time Associated Diagnosis Comments LAB TRACKING EVENT Routine 07/04/2023 7: 30 AM CDT PATH TISSUE EXAM Routine 07/04/2023 7:30 AM CDT COLONOSCOPY SCREENING Routine 07/04/2023 12:00 AM CDT Screening for colon cancer ANTI HIV 1/2 Routine 02/03/2023 8:50 AM CDT Screening for HIV (human immunodeficiency virus) XR MAMMO HERBERTH BILAT SCREEN Routine 01/24/2023 7:20 AM CDT Visit for screening mammogram CONTRACT ADMINISTRATION SPECIALIST THIN PREP PAP SCREEN IMAGED Routine 01/04/2020 8:30 AM CDT Pap smear for cervical cancer screening LIPID PANEL W REFLEX MEASURED LDL Routine 12/28/2019 8:31 AM CDT Lipid screening ANTI HCV Routine 11/05/2016 7:49 AM CDT Need for hepatitis C screening test from Last 3 Months or Most Recently Relevant to Health Maintenance Results * LAB TRACKING EVENT (07/04/2023 7:30 AM CDT) Other (Other) Client Collect / Unknown 07/04/2023 7:30 AM CDT 07/04/2023 9:45 PM CDT Sergio Meade MD LAB BILL ONLY [email or web address] [address] [place] [address], * PATH TISSUE EXAM (07/04/2023 7:30 AM CDT) Case Report Pathology Report ?Case: [id number] ? Authorizing Provider: ??Sergio Meade MD ?? Collected: ? 07/04/2023 0730 ? Ordering Location: ? [facility] ?Received: ?07/05/2023 0812 ? Pathologist: ? Riley Sigala, ? MD ? Specimen: ?Ascending Colon Biopsy ? 07/06/2023 12:37 PM CDT [facility] Final Diagnosis A) COLON, ASCENDING, POLYPECTOMIES: 1. Tubular adenomas (4) and sessile serrated adenoma (1) 2. Negative for high grade dysplasia 3. Per the colonoscopy report: ?? a. Polyp sizes: 2 mm - 4 mm ?? b. Resection: Complete ?? c. Retrieval: Complete 07/06/2023 12:37 PM T [facility] Clinical Information Ms. Mcallister is a 58 y.o. undergoing high risk colon cancer surveillance due to a personal history of adenoma less than 10 mm in size. Patient's last colonoscopy was February 2018. 07/06/2023 12:37 PM CDT [facility] Gross Description A) Received in formalin are 5 buitrago mucosal fragments averaging 2 mm in greatest dimension, which are entirely submitted in one cassette. It is labeled with the patient's name and designated ascending colon biopsy. Lenard Irby 07/05/2023 8:47 AM 07/06/2023 12:37 PM CDT [facility] Microscopic Description The final diagnosis is based on microscopic examination of appropriate sections of all specimens. 07/06/2023 12:37 PM T [facility] Additional Information Interpreted at [facility], Central Laboratory - [address] [facility] [address], [place] [address] 07/06/2023 12:37 PM T [facility] Other (Ascending Colon Biopsy) 07/04/2023 7:30 AM CDT 07/05/2023 8:12 AM CDT Sergio Meade MD PATHOLOGY/CYTOLOG Y Performing Organization Address [facility] Co de Phone Number [facility] daysoftCENTRAL LABORATORY [address] [place] [address], * COLONOSCOPY SCREENING (07/04/2023 12:00 AM CDT) Lefty Gomez MD GI PROCEDURE O RD * ANTI HIV 1/2 (02/03/2023 8:50 AM CDT) HIV-1/HIV-2 SCREEN Non-Reacti ve Non-Reacti ve 02/03/2023 5:28 PM CDT [facility] TRAL LABORATORY Comment:HIV-1 p24 and HIV-1/ HIV-2 Ab Not Detected. Blood BLOOD SPECIMEN / Unknown Venipuncture / Unknown 02/03/2023 8:50 AM CDT 02/03/2023 8:50 AM CDT Lefty Gomez MD SEND OUTS Performing Organization Address [facility] de Phone Number [facility] daysoftCENTRAL LABORATORY [address] [place] [address], * XR MAMMO HERBERTH BILAT SCREEN (01/24/2023 7:20 AM CDT) Anatomical Region Laterality Modality BREASTS, Breast Left, Breast Right Bilateral Mammography Impressions 01/25/2023 1:44 PM CDT ??There is no radiographic evidence for malignancy. ??Recommend annual mammograms. MAMMOGRAM ASSESSMENT: ??ACR 1 Negative PATIENTS: You will also receive a letter with your examination results in an easy to read format. ??If you have questions about your results, please contact your referring provider. Narrative 01/25/2023 1:44 PM CDT For Patients: As a result of the Century Cures Act, medical imaging exams and procedure reports are released immediately into your electronic medical record. You may view this report before your referring provider. If you have questions, please contact your health care provider. XR MAMMO HERBERTH BILAT SCREEN [[id number]] CLINICAL HISTORY: ??This is an asymptomatic 57 y.o. patient. INDICATION FOR EXAM: Mammogram Screening. TECHNIQUE: CC & MLO views were obtained. ??This study was evaluated with the assistance of Computer-Aided Detection. Breast Tomosynthesis was used in interpretation. COMPARISON FILM: Yes 01/15/22 [facility]14[facility]20 [facility] FINDINGS: ??The breasts are heterogeneously dense, which may obscure small masses. There are no dominant masses, suspicious micro calcifications or areas of architectural distortion. Lefty Gomez MD MAMMO * CONTRACT ADMINISTRATION SPECIALIST THIN PREP PAP SCREEN IMAGED (01/04/2020 8:30 AM CDT) Case Report Gynecologic Cytology Report ? Case: [id number] ? Authorizing Provider: ??Lefty Gomez, ?? Collected: ? 01/04/2020 0830 ? MD ? [facility] ?? Received: ?01/04/2020 0920 ? Clinic ? First Screen: ?[place] ? Specimen: ?CONTRACT ADMINISTRATION SPECIALIST ThinPrep Vial Screening, Cervical ? 01/15/2020 8:42 AM CDT [facility] OLED-T [facility] ENTRAL LABORATORY INTERPRETATION/ RESULT NEGATIVE FOR INTRAEPITHELIAL LESION OR MALIGNANCY (NIL) (none) 01/15/2020 8:42 AM CDT [facility] LABORAT[facility] IMEN ADEQUACY Satisfactory for evaluation Endocervical component present 01/15/2020 8:42 AM CDT [facility] OLED-T LABORATORY ENTRAL LABORATORY HPV REQUEST HPV and PAP 01/15/2020 8:42 AM CDT [facility] OLED-T LABORATORY- ENTRAL LABORATORY Date of LMP 05/04/2010 01/15/2020 8:42 AM CDT [facility]LED[facility] ENTRAL LABORAT[facility] Last Pap Date 11/05/16 01/15/2020 8:42 AM CDT [facility] LABORATORY-C ENTRAL LABORATORY Last Pap Result NIL 0 8:42 AM CDT [facility] OLED-T LABORATORY ENTRAL LABORATORY Abnormal Pap or [place] Bx in last 5 years No 01/15/2020 8:42 AM CDT [facility] OLED-T LABORATORY-C ENTRAL LABORATORY Menstrual Status Postmenopausal 01/15/2020 8:42 AM CDT [facility]- ENTRAL LABORATORY [place] Bx Done Today No 01/15/2020 8:42 AM CDT [facility] OLED-T [facility] EN[facility] Additional Information None given 01/15/2020 8:42 AM CDT [facility]LED-[facility] EN[facility] Comment: Cytology is screened at [facility], Central Laboratory - [address], [place] [address] and [facility] - [address], [place] [address] [address] [facility] - [address], [place] [address] Interpreted at [facility] - [address], [place] [address] Automated Review Successful 01/15/2020 8:42 AM CDT [facility] ENTRPR LABORATORY Comment:Specimen processed s uccessfully by automated cost and risk analysis manager device, ThinPrep Imaging System, [employer] ANCILLARY TESTING CONTRACT ADMINISTRATION SPECIALIST HPV Ordered, Please see separate report 01/15/2020 8:42 AM CDT [facility] Note The pap test is a screening technique, not a diagnostic procedure. It is used primarily to screen for squamous cancers and precursor lesions. Published studies have shown that it is subject to both false negative and false positive results. The pap test should not be used as the sole means to diagnose or exclude pre-malignant and malignant lesions. 01/15/2020 8:42 AM CDT [facility] Other (Cervical) Non-Blood / Unknown 01/04/2020 8:30 AM CDT 01/04/2020 9:20 AM CDT Lefty Gomez MD PATHOLOGY/CYTO LOGY [facility] [address] [place] [address], * LIPID PANEL W REFLEX MEASURED LDL (12/28/2019 8:31 AM CDT) CHOLESTEROL,TOTAL 168 100 - 199 mg/dL 12/28/2019 2:20 PM CDT [facility] TRAL LABORATORY TRIGLYCERIDES 82 <150 mg/dL 12/28/2019 2:20 PM CDT [facility] TR[facility]AT[facility] HDL CHOLESTEROL 54 >40 mg/dL 0 2:20 PM CDT [facility] TR[facility] LABORAT[facility] NON-HDL CHOLESTEROL 114 <145 mg/dl 12/28/2019 2:20 PM CDT [facility] TR[facility] LABORAT[facility] CHOL/HDL RATIO 3.11 <4.50 12/28/2019 2:20 PM CDT [facility] TR[facility] LABORAT[facility] LDL CHOLESTEROL 98 <=130 mg/dL 12/28/2019 2:20 PM CDT [facility] TRAL LABORATORY PROVIDER ORDERED STATUS RANDOM 12/28/2019 2:20 PM CDT [facility] TR[facility] LABORATORY Blood BLOOD SPECIMEN / Unknown Venipuncture / Unknown 12/28/2019 8:31 AM CDT 12/28/2019 8:34 AM CDT Lefty Gomez MD CHEMISTRY [facility] [address] [place] [address], [place] * ANTI HCV [75450.2] (11/05/2016 7:49 AM CDT) HEPATITIS C ANTIBODY Non-Reacti ve Non-Reacti ve 11/05/2016 1:35 PM CDT [facility] TR[facility] LABORATORY Blood BLOOD SPECIMEN / Unknown Venipuncture / Unknown 11/05/2016 7:49 AM CDT 11/05/2016 7:49 AM CDT Narrative [facility] - 11/05/2016 1:35 PM CDT Antibodies to HCV not detected; does not exclude the possibility of exposure to HCV. Lefty Gomez MD SEND OUTS [facility] [address] [place] [address], [place] from Last 3 Months or Most Recently Relevant to Health Maintenance Care Teams [employer] Reading Teacher Relationship Specialty Start Date End Date Lefty Gomez MD [address] [place] [address] [facility] - General 08/18/05
--- OUTSIDE RECORDS SUMMARY | 2023-08-18 08:55 | XMS_ITS | Encounter Summary ---
Author Name Unknown Organization [facility] Address [address] [place] [address]. [place] [address] Care Team Providers Care Insole Toe Snipping Machine Operator Name Role Phone Lefty Gomez Primary Care Provider [phone] Cesar Ochoa MD Unavailable [phone] Zuleyka Andersen RN Unavailable Unavailable Sergio Stafford MD Unavailable [phone] Encounter Details Date Type Department Care Team ([facility] st Contact Info) Description 04/26/2022 [facility] Medical Advice [address] [place] [address] Joana Ware RN Social History Tobacco Use Types Packs/Day [...] Coronavirus/COVID-19? No / Unsure 04/11/2022 1:42 PM CLINICAL INFORMATICS STRATEGIST documented as of this encounter Plan of Treatment Not on file documented as of this encounter Visit Diagnoses Not on filedocumented in this encounter Care Teams Insole Toe Snipping Machine Operator Relationship Specialty Start Date End Date Lefty Gomez [address] [place] [address] PCP - General Family Medicine 04/11/22 Cesar Ochoa MD [address] [facility] [address] [place] [address] Gastroenterology 05/04/22 Zuleyka Andersen, RN Registered Nurse 05/04/22 Sergio Stafford MD [address] [facility] [address] [place], [place] [id number] Assigned Gastroenterology Provider 05/29/22 documented as of this encounter
--- NOTE | 2023-08-18 09:04 | ED.FALL ---
HPI - Fall General Chief Complaint: Fall/Minor Trauma Stated Complaint: Fall Time Seen by Provider: 08/18/23 08:42 History of Present Illness HPI Narrative: Patient is a 58-year-old woman who was walking near [facility] today when she tripped on the sidewalk landing on her face. She has a large area of swelling over the frontal aspect of her skull. She also has bleeding from her nose. She does appear to having loose teeth. She has pain in the posterior aspect of her neck. She has pain in the left wrist with what appears to be a deformity of the distal radius. Patient states she did not lose consciousness but was not able to get herself up on her own. I am is came brought to the emergency room where her GCS is 15. She does not take any blood thinners. She complains of head neck and left wrist pain as well as an abrasion on her left knee but can bear weight without any difficulty. The injury occurred just moments before arrival and she states her pain is 8/10. Related Data Home Medications Medication Instructions Recorded Confirmed alendronate 70 mg tablet 70 mg PO Q7D 03/12/22 04/06/23 levothyroxine 112 mcg tablet 112 mcg PO DAILY 03/12/22 04/06/23 levalbuterol tartrate 45 1 inh inhalation Q4H PRN 05/02/22 04/06/23 mcg/actuation aerosol inhaler multivitamin 1 tab PO DAILY 05/02/22 04/06/23 calcium-magnesium 300 mg-300 mg 1 tab PO DAILY 12/23/22 04/06/23 tablet cholecalciferol (vitamin D3) 50 50 mcg PO DAILY 12/23/22 04/06/23 mcg/drop (2,000 unit/drop) oral drops (Bhl-S-Hnvkhbn Forte) mrnrml-vhaaecyf-tqqqrzu 1 cap PO TIDWM PRN 12/23/22 04/06/23 24,000-76,000-120,000 unit capsule,delayed rel (Creon) omega 7-kxu-fdz-fish oil 1,600 5 ml PO DAILY 12/23/22 04/06/23 mg-500 mg-800 mg/5 mL oral liquid (Fish Oil) tacrolimus 0.03 % topical ointment 1 applic topical BID PRN 12/23/22 04/06/23 fexofenadine 180 mg tablet 180 mg PO DAILY PRN 04/06/23 04/06/23 (Maria Elena Allergy) Allergies Allergy/AdvReac Type Severity Reaction Status Date / Time morphine Allergy Mild Nausea Verified 04/06/23 10:57 levofloxacin [From Levaquin] AdvReac Verified 04/06/23 10:57 metoclopramide [From Reglan] AdvReac Unknown Unverified 04/06/23 10:57 Review of Systems Status of ROS: Reports: 10 or more systems reviewed and unremarkable except as noted in History and below [facility] Medical History Left ankle sprain ?S93.402A - Sprain of unspecified ligament of left ankle, initial encounter (ICD-10) Systolic murmur ?R01.1 - Cardiac murmur, unspecified (ICD-10) Osteoporosis ?M81.0 - Age-related osteoporosis without current pathological fracture (ICD-10) Adenomatous colon polyp ?D12.6 - Benign neoplasm of colon, unspecified (ICD-10) Impaired fasting glucose ?R73.01 - Impaired fasting glucose (ICD-10) Migraine ?G43.909 - Migraine, unspecified, not intractable, without status migrainosus (ICD-10) Lymphoma ?C85.90 - Non-Hodgkin lymphoma, unspecified, unspecified site (ICD-10) History of pancreatitis ?Z87.19 - Personal history of other diseases of the digestive system (ICD-10) Hypothyroid ?E03.9 - Hypothyroidism, unspecified (ICD-10) Surgical History History of esophagogastroduodenoscopy (EGD) (04/2022) ?Z98.890 - Other specified postprocedural states (ICD-10) H/O thyroidectomy ?E89.0 - Postprocedural hypothyroidism (ICD-10) S/P tendon repair ?Z98.890 - Other specified postprocedural states (ICD-10) S/P colonoscopy ?Z98.890 - Other specified postprocedural states (ICD-10) H/O section ?Z98.891 - History of uterine scar from previous surgery (ICD-10) History of cholecystectomy (03/14/20) ?Z90.49 - Acquired absence of other specified parts of digestive tract (ICD-10) Family History Brother Asthma Diabetes Obesity Brother Diabetes Father Prostate cancer Diabetes Stroke Grandmother Diabetes Social History Narrative: ( would be MDM if needed), 3 adult daughters. She cares for her 2 grandsons during the day. Never smoker. No ETOH since pancreatitis diagnosis (previously drank rarely). No recreational drugs. FULL CODE. What is your current living situation?: I presently have a place to live Problems where you live: no known problems Problems where you live details: None In the past 12 months, utilities in danger of being shut off: no In past 12 months, lack of transportation kept you from medical appts, meetings, work, or getting things needed for daily living: no In the past 12 mos, have been you worried that your food would run out before you had money to buy more?: never true In the past 12 mos, the food you bought just didn't last and you didn't have money to buy more?: never true Highest level of school completed/degree received: don't know Smoking Status: Never smoker Do you use any of these nicotine containing products: None Second hand tobacco smoke exposure: No How often do you have a drink containing alcohol: never How often do you have six or more drinks on one occasion: Never AUDIT-C Alcohol total score: 0 Non-prescribed substance use: denies use Caffeine: No How often does anyone, including family, friends and others, physically hurt you: never How often does anyone, including family, friends and others, insult or talk down to you: never How often does anyone, including family, friends and others, threaten you with harm: never How often does anyone, including family, friends and others, scream or curse at you: never service: No Exam Narrative: Exam Narrative: EXAM GENERAL: Patient has a large contusion on her face with bleeding from both nostrils. EYES: No scleral icterus. ENT: Tympanic membranes and oropharynx normal. THYROID: no thyroid nodules or thyromegaly. LYMPH: No supraclavicular or cervical lymphadenopathy. SKIN: Abrasions noted on the face as well as anterior left knee. EXT: Appears to be a lateral old deformity of the left wrist. HEART: Distant heart tones noted no obvious rubs clicks gallops or murmurs. LUNGS: Clear to auscultation bilaterally with no crackles or wheezes. ABD: Soft, non tender, non distended. PSYCH: Good eye contact, speech is not pressured. Back exam is normal. GCS is 15. Const: Vital Signs, click to edit/add: Vital Signs - 24 hr 08/18/23 08:35 08/18/23 09:18 Temperature 97.9 F Pulse Rate 92 Pulse Rate [Pulse Oximeter] 100 Respiratory Rate 22 Blood Pressure [Ri ght Upper Arm] 146/96 H Pulse Oximetry 100 99 Oxygen Delivery Me thod Room Air Course Course ED Course: Patient seen examined. IV is in place and patient is given 0.5 mg of IV Dilaudid. CT of the head neck as well as x-ray of the left wrist pending. Vital Signs Vital signs: Initial Vital Signs Temperature 97.9 F 08/18/23 08:35 Temperature Source Temporal Artery Scan 08/18/23 08:35 Pulse Rate 100 08/18/23 08:35 Pulse Rhythm Regular 08/18/23 08:35 Respiratory Rate 22 08/18/23 08:35 Blood Pressure 146/96 H 08/18/23 08:35 Blood Pressure Mean 112 H 08/18/23 08:35 Blood Pressure Position Sitting 08/18/23 08:35 Pulse Oximetry 100 08/18/23 08:35 Oxygen Delivery Method Room Air 08/18/23 08:35 Vital Signs Temperature 97.9 F 08/18/23 08:35 Pulse Rate 100 08/18/23 08:35 Respiratory Rate 22 08/18/23 08:35 Blood Pressure 146/96 H 08/18/23 08:35 Pulse Oximetry 100 08/18/23 08:35 Oxygen Delivery Method Room Air 08/18/23 08:35 Temperature 97.9 F 08/18/23 08:35 Pulse Rate 92 08/18/23 09:18 Respiratory Rate 22 08/18/23 08:35 Blood Pressure 146/96 H 08/18/23 08:35 Pulse Oximetry 99 08/18/23 09:18 Oxygen Delivery Method Room Air 08/18/23 08:35 Medications Administered Medications: Discontinued Medications Generic Name Dose Route Start Last Admin Trade Name Zo PRN Reason Stop Dose Admin Hydromorphone HCl 0.5 mg 08/18/23 09:02 08/18/23 09:18 Hydromorphone 0.5 Mg/0.5 Ml Inj IVP 08/18/23 09:03 0.5 mg ONCE ONE Administration MDM - Fall MDM Narrative Medical decision making narrative: Patient is a 58-year-old woman who stumbled this morning walking on the sidewalk by [employer]. Struck her forehead and left wrist as well as left knee. She suffered an abrasion of her left knee which was cleaned and dried treated. X-ray of the left wrist does show a distal radius fracture and she was splinted. CT of the head neck is unremarkable abrasions on her face were treated with triple antibiotic and a gentle cleaning. Patient was given Dilaudid 0.5 mg in the emergency room we will be sent home with [place] 1-2 every 4-6 as needed. She was instructed on wound care and will follow-up with orthopedics next week. Differential diagnosis includes skull fracture subdural hematoma and a epidural hematoma subarachnoid bleed cervical fracture wrist fracture lacerations. Discharge Plan Discharge Clinical Impression: Contusion, Fracture of wrist, Abrasion Patient Disposition: Home, Self-Care Condition: Stable Instructions: Wrist Fracture in Adults (ED) Additional Instructions: Keep abrasions soft with triple antibiotic or Vaseline. Ice [place] as directed Wear splint Follow-up with orthopedics early next week. Report any change in symptoms. Activity Level: No Restrictions Discharge Diet: Regular Prescriptions: No Action levalbuterol tartrate 45 mcg/actuation HFA aerosol inhaler 1 inh inhalation Q4H PRN multivitamin Tablet 1 tab PO DAILY fexofenadine [Maria Elena Allergy] 180 mg tablet 180 mg PO DAILY PRN calcium-magnesium 300-300 mg tablet 1 tab PO DAILY Rx Instructions: administer with a meal Jae-M-Oahlszj Forte 50 mcg/drop (2, 000 unit/drop) drops 50 mcg PO DAILY Fish Oil 1,600-500-800 mg/5 mL liquid 5 ml PO DAILY Creon 24,000-76,000 -120,000 unit capsule,delayed release(DR/EC) 1 cap PO TIDWM PRN tacrolimus 0.03 % ointment 1 applic topical BID PRN levothyroxine 112 mcg tablet 112 mcg PO DAILY alendronate 70 mg tablet 70 mg PO Q7D Patient Comments: TAKE 1 TABLET BY MOUTH ONCE WEEKLY ON AN EMPTY STOMACH WITH A BIG GLASS OF WATER. DO NOT LIE DOWN FOR 60 MINUTES AFTERWARDS. Rx Instructions: Takes on Tuesday Follow Up/Referrals: Lefty Gomez MD [Primary Care Provider] - Stand Alone Forms: [employer] Info Instructions
[2023-08-18 09:18] VITALS: PULSE 92; O2SAT 99
[2023-08-18] MEDS: HYDROmorphone 0.5 mg/0.5 ml inj IVP (09:18)
[2023-08-18 10:00] VITALS: BP 151/95
[2023-08-18 10:02] VITALS: RESP 18
[2023-08-18 10:07] VITALS: BP 148/89
[2023-08-18 10:41] VITALS: BP 144/84
== END 2023-08-18 11:56 | disposition home or self-care (01) ==
PROVIDERS: Emergency Provider Internal Medicine; PCP Family Medicine
DX: S00.83XA Contusion of other part of head, initial encounter (principal); S52.502A Unspecified fracture of the lower end of left radius, initial encounter for closed fracture; W01.0XXA Fall on same level from slipping, tripping and stumbling without subsequent striking against object, initial encounter
CPT/HCPCS: 29125; 70450; 72125; 73100; 94761; 96374; 99283; 99284; J1170

== ENCOUNTER 2023-12-05 08:30 | Outpatient (RCR) | payer OTHER, SELFPAY | END 2023-12-05 14:52 | disposition home or self-care (01) | PROVIDERS: PCP Family Medicine; Visit Provider Orthopaedic Surgery | DX: S62.102A Fracture of unspecified carpal bone, left wrist, initial encounter for closed fracture (principal); Z51.89 Encounter for other specified aftercare | CPT/HCPCS: 97110; 97140; 97165; X5282 ==